=== PATIENT | male | born 1955 | race Caucasian/White ===

== ENCOUNTER 2020-02-28 09:03 | Outpatient (REF) | payer OTHER, SELFPAY ==
[2020-02-28 11:29] LABS: Hematocrit 47.5 % (42-52); Hemoglobin 15.8 g/dl (14.0-18.0); Mean Corpuscular HGB Conc 33.3 g/dl (31.0-36.0); Mean Corpuscular Hemoglobin 28.8 pg (27.0-33.0); Mean Corpuscular Volume 86.7 fL (80-98); Mean Platelet Volume 10.6 fL (9.4-12.4); Platelet Count 234 X10*3/uL (160-400); Red Blood Count 5.48 X10*6/uL (4.60-5.80); Red Cell Distribution Width 12.9 % (11.0-16.0); White Blood Count 5.2 X10*3/uL (4.8-10.8)
[2020-02-28 11:55] LABS: Alanine Aminotransferase 20 U/L (0-40); Albumin Level 4.5 g/dL (3.5-5.0); Alkaline Phosphatase 64 U/L (39-117); Anion Gap 14 (12-20); Aspartate Amino Transferase 20 U/L (5-37); Bilirubin Total 0.8 mg/dL (0.0-1.0); Blood Urea Nitrogen 22 mg/dL (9-16); Carbon Dioxide 26 mmol/L (22-29); Chloride 104 mmol/L (96-108); Cholesterol 215 mg/dL; Estimated Glomerular Filt Rate > 60; Glucose Fasting 87 mg/dL (60-99); HDL Cholesterol 52 mg/dL; LDL Cholesterol Calculated 141 mg/dl; Potassium 4.5 mmol/l (3.3-5.1); Sodium 139 mmol/L (135-145); Total Protein 7.1 g/dL (6.5-8.0); Triglycerides 114 mg/dL
[2020-02-28 12:17] LABS: Prostate Specific Antigen Scr 0.23 ng/mL (<0.05-4.0)
[2020-02-28 12:54] LABS: Glucose Urine UA NEG (NEG); Leukocyte Esterase Urine NEG (NEG); Nitrite Urine NEG (NEG); Specific Gravity - Urine 1.025 (1.005-1.025); Urine Blood 1+ (NEG); Urine Ketones NEG (NEG); Urine Protein NEG (NEG-TRACE)
[2020-02-28 12:56] LABS: Appearance Urine CLEAR; Color Urine YELLOW
[2020-02-28 13:44] LABS: RBC Urine 0-2 /HPF (0); WBC Urine 0 /HPF (0-4)
== END 2020-02-28 09:04 | disposition home or self-care (01) ==
LOC: HO.HMGCLDS 09:03
PROVIDERS: PCP Internal Medicine; Visit Provider Internal Medicine
DX: E78.2 Mixed hyperlipidemia (principal); K21.9 Gastro-esophageal reflux disease without esophagitis
CPT/HCPCS: 36415; 80053; 80061; 81001; 81003; 84153; 85027

== ENCOUNTER 2020-05-15 17:03 | Outpatient (REF) | payer OTHER, SELFPAY | END 2020-05-15 17:04 | disposition home or self-care (01) | LOC: HO.LAB 17:03 | PROVIDERS: Visit Provider Nurse Practitioner Family | DX: Z20.822 Contact with and (suspected) exposure to COVID-19 (principal) | CPT/HCPCS: 36415; U0003 ==

== ENCOUNTER 2020-09-02 09:56 | Outpatient (REF) | payer OTHER, SELFPAY ==
[2020-09-02 11:53] LABS: Cholesterol 227 mg/dL; HDL Cholesterol 48 mg/dL; LDL Cholesterol Calculated 142 mg/dl; Triglycerides 187 mg/dL
== END 2020-09-02 09:57 | disposition home or self-care (01) ==
LOC: HO.HMGCLDS 09:56
PROVIDERS: PCP Internal Medicine; Visit Provider Internal Medicine
DX: E78.5 Hyperlipidemia, unspecified (principal)
CPT/HCPCS: 36415; 80061

== ENCOUNTER 2020-12-16 06:38 | Day surgery (SDC) | payer OTHER, SELFPAY ==
[2020-09-30 12:45] VITALS: BMI 32.3
--- NOTE | 2020-10-02 12:06 | P.CONAN_ITS ---
HPI - Anesthesia Eval Consult details Narrative: 64yo M for Upper Endoscopy and Colonoscopy [facility] Active Problems Active Problems: All Active Problems (Updated 09/30/20 @ 12:44 by Priya Hill) Encounter for laboratory testing for COVID-19 virus (Acute) Sorethroat (Acute) GERD (gastroesophageal reflux disease) (Acute) Tendinitis of elbow (Acute) Hyperlipidemia (Acute) Past Medical History Medical History (Updated 09/30/20 @ 12:44 by Priya Hill) Benign paroxysmal positional vertigo COVID-19 vaccine series completed GERD (gastroesophageal reflux disease) Hyperlipidemia Microscopic hematuria Spondylosis of lumbosacral region Tendinitis of elbow Family History Family History (System 05/20/20 @ 13:15 by Keisha Harding) Father Healthy male adult Mother HTN (hypertension) Breast cancer Skin cancer Thyroid disorder Daughter Allergies Son No problems noted. Son No problems noted. Sister No problems noted. Sister No problems noted. Brother No problems noted. Brother No problems noted. Surgical History Surgical History H/O colonoscopy H/O left knee surgery History of bilateral knee replacement History of thumb surgery History of tonsillectomy Social History Social History (System 05/20/20 @ 13:15 by Keisha Harding) Are you a primary aged or disabled carer to a significant other at home: No Do you presently have visiting nurse or other home services: No Alcohol intake: never Meds Allergies Allergy/AdvReac Type Severity Reaction Status Date / Time amoxicillin Allergy Unknown Nausea and Verified 09/30/20 12:43 Vomiting oxycodone [Percocet] Allergy Unknown nausea and Verified 09/30/20 12:43 vomiting Home Medications Medication Instructions Recorded Confirmed Last Taken Type omega-3 fatty acids 1,000 mg 1,000 mg PO DAILY 03/05/20 09/30/20 Unknown History capsule Exam Exam Date and Time: October 02, 2020 1206 Height,Weight and Vital Signs: Height 5 ft 5 in Weight 87.997 kg Assessment and Plan Assessment Anesthesia Assessment: Chart Reviewed
--- NOTE | 2020-12-15 08:13 | HO.ANESPROP2 ---
HPI - Anesthesia Eval Consult details Narrative: 65yo M for Upper Endoscopy and Colonoscopy [facility] Active Problems Active Problems: All Active Problems (Updated 09/30/20 @ 12:44 by Priya Hill) Encounter for laboratory testing for COVID-19 virus (Acute) Sorethroat (Acute) GERD (gastroesophageal reflux disease) (Acute) Tendinitis of elbow (Acute) Hyperlipidemia (Acute) Past Medical History Medical History (Updated 09/30/20 @ 12:44 by Priya Hill) Benign paroxysmal positional vertigo COVID-19 vaccine series completed GERD (gastroesophageal reflux disease) Hyperlipidemia Microscopic hematuria Spondylosis of lumbosacral region Tendinitis of elbow Family History Family History (System 05/20/20 @ 13:15 by Keisha Harding) Father Healthy male adult Mother HTN (hypertension) Breast cancer Skin cancer Thyroid disorder Daughter Allergies Son No problems noted. Son No problems noted. Sister No problems noted. Sister No problems noted. Brother No problems noted. Brother No problems noted. Surgical History Surgical History H/O colonoscopy H/O left knee surgery History of bilateral knee replacement History of thumb surgery History of tonsillectomy Social History Social History (System 05/20/20 @ 13:15 by Keisha Harding) Are you a primary career coach to a significant other at home: No Do you presently have visiting nurse or other home services: No Alcohol intake: never Patient Tobacco Use Status: Former Tobacco user Quit Date: 1989 Tobacco use type: Cigarette Years Smoked: 10 Smoked in Last 30 Days: No Use of substances other than those prescribed or required for medical reasons: No Have you been hit, kicked, punched, or otherwise hurt by someone within the past year? If so, by whom?: No Are you DNR?: No Advance Directives: No Advance Directives Information Provided: No Advance Directives on File: No Recently lost weight without trying: No Eating poorly because of decreased appetite: No Nutrition Risks: No Nutritional Risk Poor oral hygiene: No Meds Allergies Allergy/AdvReac Type Severity Reaction Status Date / Time amoxicillin Allergy Unknown Nausea and Verified 12/16/20 07:01 Vomiting oxycodone [Percocet] Allergy Unknown nausea and Verified 12/16/20 07:01 vomiting Home Medications Medication Instructions Recorded Confirmed Last Taken Type omega-3 fatty acids 1,000 mg 1,000 mg PO DAILY 03/05/20 12/16/20 12/09/20 History capsule Exam Exam Date and Time: December 15, 2020 0813 Height,Weight and Vital Signs: Height 5 ft 5 in Weight 87.997 kg Assessment and Plan Assessment Anesthesia Assessment: Chart Reviewed
[2020-12-16 07:12] VITALS: BP 141/85; PULSE 77; RESP 16; TEMP 36.7; O2SAT 97
[2020-12-16 07:14] VITALS: BMI 33.3
--- NOTE | 2020-12-16 07:21 | P.CONAN_ITS ---
[facility] Active Problems Active Problems: All Active Problems (Updated 09/30/20 @ 12:44 by Priya arizmendi) Encounter for laboratory testing for COVID-19 virus (Acute) Sorethroat (Acute) GERD (gastroesophageal reflux disease) (Acute) Tendinitis of elbow (Acute) Hyperlipidemia (Acute) Past Medical History Medical History (Updated 09/30/20 @ 12:44 by Priya Hill) Benign paroxysmal positional vertigo COVID-19 vaccine series completed GERD (gastroesophageal reflux disease) Hyperlipidemia Microscopic hematuria Spondylosis of lumbosacral region Tendinitis of elbow Family History Family History (System 05/20/20 @ 13:15 by Keisha Harding) Father Healthy male adult Mother HTN (hypertension) Breast cancer Skin cancer Thyroid disorder Daughter Allergies Son No problems noted. Son No problems noted. Sister No problems noted. Sister No problems noted. Brother No problems noted. Brother No problems noted. Surgical History Surgical History H/O colonoscopy H/O left knee surgery History of bilateral knee replacement History of thumb surgery History of tonsillectomy Social History Social History (System 05/20/20 @ 13:15 by Keisha Harding) Are you a primary animal caretaker supervisor to a significant other at home: No Do you presently have visiting nurse or other home services: No Alcohol intake: never Patient Tobacco Use Status: Former Tobacco user Quit Date: 1989 Tobacco use type: Cigarette Years Smoked: 10 Smoked in Last 30 Days: No Use of substances other than those prescribed or required for medical reasons: No Have you been hit, kicked, punched, or otherwise hurt by someone within the past year? If so, by whom?: No Are you DNR?: No Advance Directives: No Advance Directives Information Provided: No Advance Directives on File: No Recently lost weight without trying: No Eating poorly because of decreased appetite: No Nutrition Risks: No Nutritional Risk Poor oral hygiene: No Meds Allergies Allergy/AdvReac Type Severity Reaction Status Date / Time amoxicillin Allergy Unknown Nausea and Verified 12/16/20 07:01 Vomiting oxycodone [Percocet] Allergy Unknown nausea and Verified 12/16/20 07:01 vomiting Active Medications: Current Medications Generic Name Dose Route Start Last Admin Trade Name Freq PRN Reason Stop Dose Admin Lactated Ringer's 1,000 mls @ 100 mls/hr 12/16/20 07:00 Lr IVCONT .[facility] Home Medications Medication Instructions Recorded Confirmed Last Taken Type omega-3 fatty acids 1,000 mg 1,000 mg PO DAILY 03/05/20 12/16/20 12/09/20 History capsule Exam Exam Date and Time: December 16, 202021 Height,Weight and Vital Signs: Height 5 ft 5 in Weight 90.718 kg Last Vital Signs Temp 98.0 F 12/16/20 07:12 Pulse 77 12/16/20 07:12 Resp 16 12/16/20 07:12 BP 141/85 H 12/16/20 07:12 Pulse Ox 97 12/16/20 07:12 Airway Mallampati Class: I TM Dist: >3cm Neck ROM: Full
[2020-12-16] MEDS: Lactated Ringers 1,000 ML 100 ML IVCONT (07:30)
--- NOTE | 2020-12-16 07:46 | MHC.SHP ---
Pre-Procedural Eval Section A Date of Service: 12/16/20 Section B Chief Complaint: screening,preprocedural,reflux disease Details of Present Illness: gerd, screening Relevant Family History (Specify if Yes): No Relevant Social History: None Present Medications: see Short Stay Collaborative assessment Medical History: No relevant PMH Allergies: Allergies Allergy/AdvReac Type Severity Reaction Status Date / Time amoxicillin Allergy Unknown Nausea and Verified 12/16/20 07:01 Vomiting oxycodone [Percocet] Allergy Unknown nausea and Verified 12/16/20 07:01 vomiting Review of Systems Sugical H&P ROS: Negative: Constitution, Cardiovascular, Respiratory, Neurological, Psychiatric, Hem-Onc, Allergic/Immunologic, Gastrointestinal, Genitourinary, Musculoskeletal, Integumentary, Endocrine and Eyes/Ears/Nose/Throat Exam Surgical H&P Exam: Normal: HEENT, Normal: Heart, Normal: Lungs, Normal: Extremities, Normal: Abdomen, Normal: Skin and Normal: Neurological Plan I have reviewed the history and physical and performed a pertinent physical examination on my patient. No changes have occurred unless specified.
[2020-12-16 08:20] VITALS: BP 105/67; PULSE 68; RESP 17; TEMP 36.6; O2SAT 96
--- NOTE | 2020-12-16 08:25 | P.BOP_ITS ---
Brief Operative Note Date of Service: 12/16/20 Pre-op diagnosis: gerd, screening Post-op diagnosis: same Procedure: egd,colon Surgeon: Curt Fitch Anesthesia: MAC Was an Residential Door Installer used for this Procedure?: No Estimated blood loss (mL): 2 Pathology: other (bxs antrum, egj) Condition: stable Disposition: PACU
[2020-12-16 08:35] VITALS: BP 110/75; PULSE 68; RESP 16; TEMP 36.6; O2SAT 98
--- NOTE | 2020-12-16 10:09 | OP_ITS ---
SURGEON: Curt Fitch MD INDICATIONS: 1. Gastroesophageal reflux disease. 2. Personal history of colon polyps. PREOPERATIVE DIAGNOSIS: POSTOPERATIVE DIAGNOSIS: PROCEDURE PERFORMED: 1. Upper endoscopy with biopsy. 2. Colonoscopy to the terminal ileum. ESTIMATED BLOOD LOSS: COMPLICATIONS: ANESTHESIA: ASSISTANTS: SPECIMENS: MEDICATIONS: Monitored anesthesia care. DESCRIPTION OF PROCEDURE: History and physical performed. The risks and benefits of the procedure were explained to the patient. Informed consent was obtained. The patient was placed in the left lateral decubitus position. The Olympus video gastroscope was introduced into the esophagus, stomach, and duodenum. Examination was performed. The scope was removed. He was repositioned for colonoscopy. A digital rectal exam was performed and was found to be normal. The Olympus pediatric video colonoscope was introduced into the rectum and advanced to the cecum without difficulty. The cecum was identified by transillumination, palpation, identification of the ileocecal valve. Examination was performed. The scope was removed. He tolerated both procedures well and was taken to recovery area in stable condition. FINDINGS: UPPER ENDOSCOPY: Esophagus: The esophagus did show distal esophagitis with a few small erosions involving the last 3 to 4 cm of the esophagus. Stomach: The stomach showed no evidence of masses, ulcers, or polyps. Duodenum: The bulb and second portion were normal. Biopsies were obtained from the EG junction and from the antrum. COLONOSCOPY: The terminal ileum was normal. Visualized colonic mucosa was normal. The quality of the prep was good. There were few diverticula seen in the sigmoid. No polyps were identified. Retroflexed examination showed small internal hemorrhoids. IMPRESSION: 1. Esophagitis. 2. Normal colonoscopy. RECOMMENDATIONS: 1. Begin omeprazole 20 mg daily. 2. Follow up the biopsy results. 3. Repeat colonoscopy is recommended for 7 to 10 years based on today's findings. MD LILIANE Gonzalez/KERI / [id number]
== END 2020-12-16 08:57 | disposition home or self-care (01) ==
PROVIDERS: PCP Internal Medicine; Visit Provider Internal Medicine Gastroenterology
PROC: (CPT 45378; principal; 2020-12-16 08:00)
DX: Z12.11 Encounter for screening for malignant neoplasm of colon (principal); Z86.010 Personal history of colon polyps; K57.30 Diverticulosis of large intestine without perforation or abscess without bleeding; K64.8 Other hemorrhoids; K21.9 Gastro-esophageal reflux disease without esophagitis; K20.90 Esophagitis, unspecified without bleeding; Z79.899 Other long term (current) drug therapy; Z87.891 Personal history of nicotine dependence
CPT/HCPCS: 45378; 43239; 88305; 88342

== ENCOUNTER 2022-02-01 10:30 | Outpatient (REF) | payer MEDICARE, OTHER, SELFPAY ==
[2022-02-01 14:00] LABS: Appearance Urine Clear; Color Urine Yellow; Glucose Urine UA Negative (Negative); Leukocyte Esterase Urine Negative (Negative); Nitrite Urine Negative (Negative); Urine Blood Negative (Negative); Urine Ketones Negative (Negative); Urine Protein Negative (Neg-Trace)
[2022-02-01 14:06] LABS: Bacteria Urine None Seen (None Seen); Hyaline Casts Urine 0-2 /LPF (0-2); RBC Urine 0-2 /HPF (0-2); Squamous Epithelial Cell Urine 0-2 /HPF (0-2); WBC Urine 0-5 /HPF (0-5)
[2022-02-01 14:07] LABS: Hematocrit 45.3 % (42.0-52.0); Hemoglobin 15.2 g/dl (14.0-18.0); Mean Corpuscular HGB Conc 33.6 g/dl (31.0-36.0); Mean Corpuscular Hemoglobin 28.9 pg (27.0-33.0); Mean Corpuscular Volume 86.1 fL (80.0-98.0); Mean Platelet Volume 10.6 fL (9.4-12.4); Platelet Count 276 X10*3/uL (160-400); Red Blood Count 5.26 X10*6/uL (4.60-5.80)
[2022-02-01 14:25] LABS: Alanine Aminotransferase 24 U/L (0-40); Albumin Level 4.4 g/dL (3.5-5.0); Alkaline Phosphatase 62 U/L (39-117); Anion Gap 15 (12-20); Aspartate Amino Transferase 21 U/L (5-37); Bilirubin Total 0.7 mg/dL (0.0-1.0); Blood Urea Nitrogen 18 mg/dL (9-16); Calcium 9.2 mg/dL (8.4-10.2); Carbon Dioxide 24 mmol/L (22-29); Chloride 105 mmol/L (96-108); Cholesterol 183 mg/dL; Estimated Glomerular Filt Rate > 60; Glucose Fasting 90 mg/dL (60-99); HDL Cholesterol 50 mg/dL; LDL Cholesterol Calculated 107 mg/dl; Potassium 4.5 mmol/L (3.3-5.1); Sodium 139 mmol/L (135-145); Total Protein 6.8 g/dL (6.5-8.0); Triglycerides 133 mg/dL
== END 2022-02-01 10:31 | disposition home or self-care (01) ==
LOC: HO.HMGCLDS 10:30
PROVIDERS: PCP Internal Medicine; Visit Provider Internal Medicine
DX: K21.9 Gastro-esophageal reflux disease without esophagitis (principal); E78.5 Hyperlipidemia, unspecified; Z12.5 Encounter for screening for malignant neoplasm of prostate
CPT/HCPCS: 36415; 80053; 80061; 81001; 84153; 85027

== ENCOUNTER 2023-01-21 08:24 | Outpatient (AMB) | payer MEDICARE, OTHER, SELFPAY ==
--- NOTE | 2023-01-21 08:28 | A.OFFPC_ITS ---
Vital Signs 01/21/23 08:29 Height 5 ft 5 in Weight 193 lb BMI 32.1 BP 122/80 Blood Pressure Location Lt brachial Position Sitting Pulse 65 Pulse Source Pulse Oximeter Pulse Oximetry (%) 99 Oxygen Delivery Method Room Air Intake Visit Reasons: Followup blurred vision/headache Intake Note: Pt is here today for a follow up visit. Pt states that he had accident 15 years ago playing soccer he got hit in a head. Pt states that his Rside of his head was numb and now his R eye gets blurry and get headache. Pt states that he gets those episodes more often now. Allergies amoxicillin Allergy (Unknown, Verified 01/21/23 08:45) Nausea and Vomiting oxycodone [Percocet] Allergy (Unknown, Verified 01/21/23 08:45) nausea and vomiting Medication List - Last Reconciled 01/21/23 by Ching Perez MD cholecalciferol (vitamin D3) 50 mcg PO BEDTIME magnesium citrate 100 mg PO DAILY omega-3 fatty acids 1,000 mg PO DAILY Tobacco use date assessed: 01/21/23 Dental Screening Dental Screen Date: 01/21/23 Did you have a dental visit in the last 12 months?: Yes Did you have a dental problem in the last 6 months where you did not have access to dental care?: No Was dental information given to patient?: Patient has dentist HPI Followup blurred vision/headache HPI Details Pt presents reporting chronic, since his head injury at age of 16 with loss of consciousness, episodes of blurred vision and headaches lasting up to 1 day usually resolving with a glass of lemon juice. patient was hospitalized in the past about 4 years ago and underwent extensive neurological workup which was negative. Patient denies any change in the frequency or characteristics of his episodes. He was reading about a neurologist at [facility] who sp ecializes in traumatic brain injury and is thinking about referral. [facility] Medical History (Updated 01/21/23 @ 09:02 by Ching Perez MD) COVID-19 vaccine series completed Tendinitis of elbow Hyperlipidemia Spondylosis of lumbosacral region Benign paroxysmal positional vertigo Microscopic hematuria GERD (gastroesophageal reflux disease) Surgical History H/O colonoscopy History of bilateral knee replacement History of tonsillectomy History of thumb surgery H/O left knee surgery Family History Father Healthy male adult Mother HTN (hypertension) Breast cancer Skin cancer Thyroid disorder Daughter Allergies Son No problems noted. Son No problems noted. Sister No problems noted. Sister No problems noted. Brother No problems noted. Brother No problems noted. 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 1. Little interest or pleasure in doing things: not at all 2. Feeling down, depressed, or hopeless: not at all 3. Trouble falling or staying asleep, or sleeping too much: not at all 4. Feeling tired or having little energy: not at all 5. Poor appetite or overeating: not at all 6. Feeling bad about yourself - or that you are a failure or have let yourself or your family down: not at all 7. Trouble concentrating on things, such as reading the newspaper or watching television: not at all 8. Moving or speaking so slowly that other people could have noticed. Or the opposite - being so fidgety or restless that you have been moving around a lot more than usual: not at all 9. Thoughts that you would be better off or of hurting yourself in some way: not at all Total score: 0 Depression Screening Interpretation: Negative Source: Developed by Drs. Hong Weiss, Marianne Herrera, Surinder Trujillo and colleagues, with an educational leslie from [employer]. Thrive Questionnaire Date Thrive assessed: 01/21/23 I am a: Patient What is your living situation today?: I have a steady place to live Within the past 12 months, did the food you bought not last and you didn't have the money to get more?: Never true Within the past 12 months, did you worry whether your food would run out before you got money to buy more?: Never true Do you have trouble paying for medicines?: No Do you have trouble getting transportation to medical appointments?: No Do you have trouble paying your heating and electricity bill?: No Do you have trouble taking care of your child, family member or friend?: No Do you have trouble with day-to-day activities such as bathing, preparing meals, shopping, managing finances, etc.?: No Are you currently unemployed and looking for a job?: No Are you interested in more education?: No Please select the resources that you would like help with: None Currently or been in a relationship where the following occur: no concerns reported AUDIT C Alcohol Use Questionnaire (AUDIT-C) 1. How often do you have a drink containing alcohol?: Never 3. How often do you have six or more drinks on one occasion?: Never Total Score: 0 ZINA-7 AMB Questionnaire ZINA-7 Date ZINA - 7 assessed: 01/21/23 Feeling nervous, anxious, or on edge: 0 = Not at all Not being able to stop or control worryin = Not at all Worrying too much about different things: 0 = Not at all Trouble relaxin = Not at all Being so restless that it is hard to sit still: 0 = Not at all Becoming easily annoyed or irritable: 0 = Not at all Feeling afraid as if something awful might happen: 0 = Not at all Total ZINA-7 score (0-4 normal; 5-9 mild; 10-14 moderate; 15-21 severe): 0 Source: Developed by Drs. Hong Weiss, Marianne Herrera, Surinder Trujillo and colleagues, with an educational leslie from [employer]. Review of Systems Const All systems reviewed & are unremarkable except as noted in HPI and below Reports no additional complaints Eyes Reports no additional complaints ENT Reports no additional complaints Card Reports no additional complaints Resp Reports no additional complaints GI Reports no additional complaints Reports no additional complaints Physical exam (Primary Care) Vital Signs: Last Vital Signs Pulse 65 01/21/23 08:29 BP 122/80 01/21/23 08:29 Pulse Ox 99 01/21/23 08:29 Oxygen Delivery Method Room Air 01/21/23 08:29 BMI result Body Mass Index 32.1 Tobacco/Smoking Status: Tobacco use Status Tobacco use date assessed 01/21/23 01/21/23 08:46 Patient Tobacco Use Status Former Tobacco user 01/21/23 08:29 Tobacco use type Cigarette 01/21/23 08:29 e-Cigarette/Vaping Use Never Used 01/21/23 08:29 PHQ-9: PHQ-9 Score PHQ-9: Total score 0 01/21/23 08:51 Depression Screening Interpretation: Negative Thrive Assessment: Date of Thrive Assessment Date Thrive assessed 01/21/23 01/21/23 08:51 Currently or been in a relationship where the following occur: no concerns reported Const General: no acute distress Orientation/consciousness: patient oriented x3 HENMT Head: Yes normal to inspection Ears: hearing grossly normal bilaterally General nose exam: Normal external nose present Eyes General: appearance normal, both eyes and all related structures Pupils: Equal, round and reactive pupils present Neck Neck: Yes no lymphadenopathy and Yes supple Resp Effort & Inspection: normal respiratory effort Auscultation: clear to auscultation bilaterally Cardio Rhythm: regular rhythm Heart sounds: S1 normal heart sound present and S2 normal heart sound present Neuro General: patient oriented x3, gait normal and no focal motor deficits Cranial nerves: Yes CN's II-XII intact bilaterally and Yes Equal, round and reactive pupils present Cognition (Neuro): normal cognition Motor exam (neuro): 5/5 motor strength present throughout Coordination: [id number] test normal Romberg Test: Negative Assessment and Plan Assessment & Plan (1) 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
[2023-01-21 08:29] VITALS: BP 122/80; PULSE 65; O2SAT 99; BMI 32.1
== END 2023-01-21 09:18 | disposition home or self-care (01) ==
PROVIDERS: PCP Internal Medicine; Visit Provider Internal Medicine
DX: S09.90XA Unspecified injury of head, initial encounter (principal)
CPT/HCPCS: 99213

== ENCOUNTER 2023-02-12 09:27 | Outpatient (REF) | payer MEDICARE, OTHER, SELFPAY | END 2023-02-12 09:28 | disposition home or self-care (01) | LOC: HO.HMGCLDS 09:27 | PROVIDERS: PCP Internal Medicine; Visit Provider Internal Medicine | DX: Z00.00 Encounter for general adult medical examination without abnormal findings (principal); E78.5 Hyperlipidemia, unspecified; Z12.5 Encounter for screening for malignant neoplasm of prostate | CPT/HCPCS: 36415; 80053; 80061; 83735; 84153; 85025 ==

== ENCOUNTER 2023-02-21 10:47 | Outpatient (AMB) | payer MEDICARE, OTHER, SELFPAY ==
[2023-02-21 11:12] VITALS: BP 122/84; PULSE 65; O2SAT 97; BMI 31.6
--- NOTE | 2023-02-21 11:12 | MHC.PC.OV ---
Vital Signs 02/21/23 11:12 Height 5 ft 5 in Weight 190 lb BMI 31.6 BP 122/84 Blood Pressure Location Rt brachial Position Sitting Pulse 65 Pulse Source Pulse Oximeter Pulse Oximetry (%) 97 Oxygen Delivery Method Room Air Intake Visit Reasons: PE Intake Note: Pt is here today for PE. Allergies amoxicillin Allergy (Unknown, Verified 02/21/23 11:18) Nausea and Vomiting oxycodone [Percocet] Allergy (Unknown, Verified 02/21/23 11:18) nausea and vomiting Medication List - Last Reconciled 02/21/23 by Ching Perez MD cholecalciferol (vitamin D3) 50 mcg PO BEDTIME magnesium citrate 100 mg PO DAILY omega-3 fatty acids 1,000 mg PO DAILY Tobacco use date assessed: 02/21/23 Fall risk assessment: No Falls in past year Last assessed Fall Risk: 02/21/23 Dental Screening Dental Screen Date: 02/21/23 Did you have a dental visit in the last 12 months?: Yes Did you have a dental problem in the last 6 months where you did not have access to dental care?: No Was dental information given to patient?: Patient has dentist HPI PE HPI Details PATIENT PRESENTS FOR PHYSICAL. Patient was seen in the ER last month with complaint of left flank pain and nausea. He was found to have microscopic hematuria was evaluated by [facility] and the abdominal CT scan showed left mild hydronephrosis and a cystic structure with a mass effect on the left renal pelvis 2.6 x 3.7 x 2.3 cm. Patient has an appointment for the MRI to evaluate for left renal mass net week. Patient denies flank pain fever chills nausea vomiting [facility] Medical History (Updated 02/21/23 @ 12:14 by Ching Perez MD) COVID-19 vaccine series completed Tendinitis of elbow Hyperlipidemia Spondylosis of lumbosacral region Benign paroxysmal positional vertigo GERD (gastroesophageal reflux disease) Surgical History H/O colonoscopy History of bilateral knee replacement History of tonsillectomy History of thumb surgery H/O left knee surgery Family History Father Healthy male adult Mother HTN (hypertension) Breast cancer Skin cancer Thyroid disorder Daughter Allergies Son No problems noted. Son No problems noted. Sister No problems noted. Sister No problems noted. Brother No problems noted. Brother No problems noted. 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 Hong Weiss, Marianne Herrera, Surinder Trujillo and colleagues, with an educational leslie from [employer]. Review of Systems Const All systems reviewed & are unremarkable except as noted in HPI and below Reports no additional complaints Eyes Reports no additional complaints ENT Reports no additional complaints Card Reports no additional complaints Resp Reports no additional complaints GI Reports no additional complaints Reports no additional complaints Physical exam (Primary Care) Vital Signs: Last Vital Signs Pulse 65 02/21/23 11:12 BP 122/84 02/21/23 11:12 Pulse Ox 97 02/21/23 11:12 Oxygen Delivery Method Room Air 02/21/23 11:12 BMI result Body Mass Index 31.6 Tobacco/Smoking Status: Tobacco use Status Tobacco use date assessed 02/21/23 02/21/23 11:19 Patient Tobacco Use Status Former Tobacco user 02/21/23 11:13 Tobacco use type Cigarette 02/21/23 11:13 e-Cigarette/Vaping Use Never Used 02/21/23 11:13 Thrive Assessment: Date of Thrive Assessment Date Thrive assessed 01/21/23 02/21/23 11:13 Const General: no acute distress HENMT Head: Yes normal to inspection Ears: hearing grossly normal bilaterally Face and sinus: Yes normal facial exam Throat: Yes posterior oropharynx normal Eyes General: appearance normal, both eyes and all related structures Neck Neck: Yes no lymphadenopathy and Yes supple Resp Effort & Inspection: normal respiratory effort Auscultation: clear to auscultation bilaterally Cardio Rhythm: regular rhythm Heart sounds: S1 normal heart sound present and S2 normal heart sound present GI Inspection: Yes normal to inspection Palpation (GI): Soft to palpation Percussion: Yes normal to percussion Auscultation: normal bowel sounds Assessment and Plan Assessment & Plan (1) Left renal mass: Comment: CT PVU, left cystic structure 2.6x3.7x2.3 cm with a mass effect on the left renal pelvis and mild hydronephrosis 02/03/23, will have MRI Code(s): N28.89 - Other specified disorders of kidney and ureter Plan: Follow-up with urology (2) Annual physical exam: Code(s): Z00.00 - Encounter for general adult medical examination without abnormal findings Plan: Well-balanced diet regular physical activity discussed with the patient. He is up-to-date with colonoscopy (3) Elevated serum creatinine: Code(s): R79.89 - Other specified abnormal findings of blood chemistry Plan: Increase fluid intake repeat basic metabolic panel in 1 month Orders: Orders UA w Microscopic Today N28.89 - Other specified disorders of kidney and ureter Urine Culture Today N28.89 - Other specified disorders of kidney and ureter Basic Metabolic Panel 1 Month N28.89 - Other specified disorders of kidney and ureter Coding Level of Care Code Est Pt Prev Care >65y(71060) Diagnoses Left renal mass N28.89 Annual physical exam Z00.00 Elevated serum creatinine R79.89
== END 2023-02-21 12:16 | disposition home or self-care (01) ==
PROVIDERS: Visit Provider Internal Medicine
DX: Z00.00 Encounter for general adult medical examination without abnormal findings (principal); N28.89 Other specified disorders of kidney and ureter; R79.89 Other specified abnormal findings of blood chemistry
CPT/HCPCS: 99397

== ENCOUNTER 2023-02-21 12:13 | Outpatient (REF) | payer MEDICARE, OTHER, SELFPAY ==
[2023-02-21 13:17] LABS: Appearance Urine Clear; Color Urine Yellow; Glucose Urine UA Negative (Negative); Leukocyte Esterase Urine Negative (Negative); Nitrite Urine Negative (Negative); PH 5.5 (5.0-9.0); UMIC TRIGGER UA YES; Urine Blood Small (1+) (Negative); Urine Ketones Negative (Negative); Urine Protein Negative (Neg-Trace)
[2023-02-21 13:33] LABS: Bacteria Urine None Seen (None Seen); Hyaline Casts Urine 0-2 /LPF (0-2); RBC Urine 0-2 /HPF (0-2); Squamous Epithelial Cell Urine 0-2 /HPF (0-2); WBC Urine 0-5 /HPF (0-5)
== END 2023-02-21 12:14 | disposition home or self-care (01) ==
LOC: HO.HMGCLDS 12:13
PROVIDERS: PCP Internal Medicine; Visit Provider Internal Medicine
DX: N28.89 Other specified disorders of kidney and ureter (principal)
CPT/HCPCS: 81001; 87086

== ENCOUNTER 2023-03-18 08:01 | Outpatient (REF) | payer MEDICARE, OTHER, SELFPAY ==
[2023-03-18 11:48] LABS: Anion Gap 9 (12-20); Blood Urea Nitrogen 26 mg/dL (9-16); Calcium 9.4 mg/dL (8.4-10.2); Carbon Dioxide 30 mmol/L (22-29); Chloride 105 mmol/L (96-108); Estimated Glomerular Filt Rate 41; Glucose Random 89 mg/dL (60-115); Sodium 140 mmol/L (135-145)
== END 2023-03-18 08:02 | disposition home or self-care (01) ==
LOC: HO.HMGCLDS 08:01
PROVIDERS: PCP Internal Medicine; Visit Provider Internal Medicine
DX: N28.89 Other specified disorders of kidney and ureter (principal)
CPT/HCPCS: 36415; 80048

== ENCOUNTER 2023-03-22 11:05 | Outpatient (AMB) | payer MEDICARE, OTHER, SELFPAY ==
--- NOTE | 2023-03-22 11:27 | MHC.PC.OV ---
Vital Signs 03/22/23 11:28 Height 5 ft 5 in Weight 192 lb BMI 31.9 BP 130/82 Blood Pressure Location Lt brachial Position Sitting Pulse 78 Pulse Source Pulse Oximeter Pulse Oximetry (%) 98 Oxygen Delivery Method Room Air Intake Visit Reasons: one month fu Allergies amoxicillin Allergy (Unknown, Verified 03/22/23 11:29) Nausea and Vomiting oxycodone [Percocet] Allergy (Unknown, Verified 03/22/23 11:29) nausea and vomiting Tobacco use date assessed: 02/21/23 HPI one month fu HPI Details Pt presents for f/u of CKD 3. Patient follows up with urologist next week, had renal MR but results are not available. Patient is going to [place] for 4 months in 2 weeks. [facility] Medical History (Updated 03/22/23 @ 11:53 by Ching Perez MD) COVID-19 vaccine series completed Tendinitis of elbow Hyperlipidemia Spondylosis of lumbosacral region Benign paroxysmal positional vertigo GERD (gastroesophageal reflux disease) Surgical History H/O colonoscopy History of bilateral knee replacement History of tonsillectomy History of thumb surgery H/O left knee surgery Family History Father Healthy male adult Mother HTN (hypertension) Breast cancer Skin cancer Thyroid disorder Daughter Allergies Son No problems noted. Son No problems noted. Sister No problems noted. Sister No problems noted. Brother No problems noted. Brother No problems noted. 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 Hong Weiss, MarianneSurinder Vaz and colleagues, with an educational leslie from [employer]. Review of Systems Const All systems reviewed & are unremarkable except as noted in HPI and below Reports no additional complaints Eyes Reports no additional complaints ENT Reports no additional complaints Card Reports no additional complaints Resp Reports no additional complaints GI Reports no additional complaints Physical exam (Primary Care) Vital Signs: Last Vital Signs Pulse 78 03/22/23 11:28 BP 130/98 H 03/22/23 11:28 Pulse Ox 98 03/22/23 11:28 Oxygen Delivery Method Room Air 03/22/23 11:28 BMI result Body Mass Index 31.9 Tobacco/Smoking Status: Tobacco use Status Tobacco use date assessed 02/21/23 03/22/23 11:30 Patient Tobacco Use Status Former Tobacco user 03/22/23 11:30 Tobacco use type Cigarette 03/22/23 11:30 e-Cigarette/Vaping Use Never Used 03/22/23 11:30 Thrive Assessment: Date of Thrive Assessment Date Thrive assessed 01/21/23 03/22/23 11:30 Const General: no acute distress HENMT Head: Yes normal to inspection Eyes General: appearance normal, both eyes and all related structures Neck Neck: Yes no lymphadenopathy and Yes supple Resp Effort & Inspection: normal respiratory effort Auscultation: clear to auscultation bilaterally Cardio Rhythm: regular rhythm Heart sounds: S1 normal heart sound present and S2 normal heart sound present GI Percussion: Yes normal to percussion Auscultation: normal bowel sounds Assessment and Plan Assessment & Plan (1) Left renal mass: Comment: CT PVU, left cystic structure 2.6x3.7x2.3 cm with a mass effect on the left renal pelvis and mild hydronephrosis 02/03/23, will have MRI Code(s): N28.89 - Other specified disorders of kidney and ureter Plan: F/U WITH UROLOGY at [facility] (2) Elevated BP without diagnosis of hypertension: Code(s): R03.0 - Elevated blood-pressure reading, without diagnosis of hypertension Plan: low Na diet, regular exercise , pt will have BP checked in Fl Coding Level of Care Code Est Pt Level 4 (68986) Diagnoses Left renal mass N28.89 Elevated BP without diagnosis of hypertension R03.0
[2023-03-22 11:28] VITALS: BP 130/82; PULSE 78; O2SAT 98; BMI 31.9
== END 2023-03-22 11:54 | disposition home or self-care (01) ==
PROVIDERS: PCP Internal Medicine; Visit Provider Internal Medicine
DX: N28.89 Other specified disorders of kidney and ureter (principal); R03.0 Elevated blood-pressure reading, without diagnosis of hypertension
CPT/HCPCS: 99214

== ENCOUNTER 2024-01-04 15:39 | Outpatient (AMB) | payer MEDICARE, OTHER, SELFPAY ==
--- NOTE | 2024-01-04 15:55 | MHC.OFFWIV ---
Intake Vital Signs 01/04/24 16:00 Height 5 ft 5 in Weight 194 lb BMI 32.3 BP 160/100 H Blood Pressure Location Rt brachial Position Sitting Pulse 62 Pulse Source Pulse Oximeter Pulse Oximetry (%) 98 Oxygen Delivery Method Room Air Intake Visit Reasons: EP BP high 185/110 this morning/no other symp Patient Tobacco Use Status: Former Tobacco user Allergies amoxicillin Allergy (Unknown, Verified 03/22/23 11:29) Nausea and Vomiting oxycodone [Percocet] Allergy (Unknown, Verified 03/22/23 11:29) nausea and vomiting Medication List - Last Reconciled 01/04/24 by Samantha Feliciano MD cholecalciferol (vitamin D3) 50 mcg PO BEDTIME magnesium citrate 100 mg PO DAILY omega-3 fatty acids 1,000 mg PO DAILY HPI EP BP high 185/110 this morning/no other symp HPI Details Patient is 68-year-old gentleman who has compromised kidney function due to cyst left side Came in today to talk about blood pressure which was elevated this morning His blood pressure is elevated at this time as well at 160/100 He is taking no medication for high blood pressure He does have a urologist at [facility], Dr. 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 Imaging did not show any stone or malignancy. Cytology from cyst aspiration also was negative for malignancy. I am ordering a new set of labs for the patient He was instructed to call Dr. Sher office and book appointment earlier than February Patient is to come on Tuesday to get up print out of his lab report Meanwhile I am starting him on atenolol 25 mg patient will continue monitoring his blood pressure at home If it is still above 140 systolic he may double the dose. He has no headache no dizziness no nausea no vomiting there is no chest pain no shortness a breath, there is no abdominal pain There is no flank pain there is no urinary complaints PFSH Medical History COVID-19 vaccine series completed Tendinitis of elbow Hyperlipidemia Spondylosis of lumbosacral region Benign paroxysmal positional vertigo GERD (gastroesophageal reflux disease) Surgical History H/O colonoscopy History of bilateral knee replacement History of tonsillectomy History of thumb surgery H/O left knee surgery Family History Father Healthy male adult Mother HTN (hypertension) Breast cancer Skin cancer Thyroid disorder Daughter Allergies Son No problems noted. Son No problems noted. Sister No problems noted. Sister No problems noted. Brother No problems noted. Brother No problems noted. 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 [employer] Current occupational exposures/hazards: No Cognitive needs: No Hearing needs: No Vision needs: No Review of Systems Const All systems reviewed & are unremarkable except as noted in HPI and below Physical Exam Vital Signs: Last Vital Signs Pulse 62 01/04/24 16:00 BP 160/100 H 01/04/24 16:00 Pulse Ox 98 01/04/24 16:00 Oxygen Delivery Method Room Air 01/04/24 16:00 BMI result Body Mass Index 32.3 Const General: no acute distress Orientation/consciousness: patient oriented x3 Eyes General: appearance normal, both eyes and all related structures Resp Effort & Inspection: normal respiratory effort and able to speak in complete sentences Auscultation: clear to auscultation bilaterally Neuro General: patient oriented x3 Psych Mental Status: mental status grossly normal Assessment & Plan Assessment & Plan (1) Hypertension, essential: Code(s): I10 - Essential (primary) hypertension (2) Compromised kidney function: Code(s): N28.9 - Disorder of kidney and ureter, unspecified (3) Hydronephrosis of left kidney: Code(s): N13.30 - Unspecified hydronephrosis Plan Patient is 68-year-old gentleman who has compromised kidney function due to cyst left side Came in today to talk about blood pressure which was elevated this morning His blood pressure is elevated at this time as well at 160/100 He is taking no medication for high blood pressure 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 Imaging did not show any stone or malignancy. Cytology from cyst aspiration also was negative for malignancy. I am ordering a new set of labs for the patient He was instructed to call Dr. Sher office and book appointment earlier than February Patient is to come on Tuesday to get up print out of his lab report Meanwhile I am starting him on atenolol 25 mg patient will continue monitoring his blood pressure at home If it is still above 140 systolic he may double the dose. He has no headache no dizziness no nausea no vomiting there is no chest pain no shortness a breath, there is no abdominal pain There is no flank pain there is no urinary complaints Orders: Orders Comprehensive Met. Panel Today I10 - Essential (primary) hypertension, N28.1 - Cyst of kidney, acquired, N28.9 - Disorder of kidney and ureter, unspecified Medications: New atenolol 25 mg PO DAILY 30 tabs 0RF Coding Level of Care Code Est Pt Level 4 (99782) Diagnoses Hypertension, essential I10 Compromised kidney function N28.9 Hydronephrosis of left kidney N13.30
[2024-01-04 16:00] VITALS: BP 160/100; PULSE 62; O2SAT 98; BMI 32.3
== END 2024-01-04 16:27 | disposition home or self-care (01) ==
PROVIDERS: PCP Internal Medicine; Visit Provider Internal Medicine
DX: I10 Essential (primary) hypertension (principal); N28.9 Disorder of kidney and ureter, unspecified; N13.30 Unspecified hydronephrosis
CPT/HCPCS: 99214

== ENCOUNTER 2024-01-05 06:48 | Outpatient (REF) | payer MEDICARE, OTHER, SELFPAY ==
[2024-01-05 10:24] LABS: Alanine Aminotransferase 26 U/L (0-40); Albumin Level 4.3 g/dL (3.5-5.0); Alkaline Phosphatase 63 U/L (39-117); Anion Gap 14 (12-20); Aspartate Amino Transferase 19 U/L (5-37); Bilirubin Total 0.5 mg/dL (0.0-1.0); Blood Urea Nitrogen 29 mg/dL (9-16); Calcium 9.8 mg/dL (8.4-10.2); Carbon Dioxide 25 mmol/L (22-29); Chloride 106 mmol/L (96-108); Estimated Glomerular Filt Rate 37; Glucose Random 98 mg/dL (60-115); Sodium 140 mmol/L (135-145)
== END 2024-01-05 06:49 | disposition home or self-care (01) ==
LOC: HO.HMGCLDS 06:48
PROVIDERS: PCP Internal Medicine; Visit Provider Internal Medicine
DX: I10 Essential (primary) hypertension (principal); N28.9 Disorder of kidney and ureter, unspecified; N28.1 Cyst of kidney, acquired
CPT/HCPCS: 36415; 80053

== ENCOUNTER 2024-01-20 10:12 | Outpatient (AMB) | payer MEDICARE, OTHER, SELFPAY ==
--- NOTE | 2024-01-20 10:14 | MHC.PC.OV ---
Vital Signs 01/20/24 10:16 Height 5 ft 5 in Weight 198 lb BMI 32.9 BP 160/100 H Blood Pressure Location Rt brachial Position Sitting Pulse 72 Pulse Source Pulse Oximeter Pulse Oximetry (%) 98 Intake Visit Reasons: BP nura after WI Allergies amoxicillin Allergy (Unknown, Verified 01/20/24 10:18) Nausea and Vomiting oxycodone [Percocet] Allergy (Unknown, Verified 01/20/24 10:18) nausea and vomiting Medication List - Last Reconciled 01/20/24 by Ching Perez MD atenolol 25 mg PO DAILY cholecalciferol (vitamin D3) 50 mcg PO BEDTIME magnesium citrate 100 mg PO DAILY omega-3 fatty acids 1,000 mg PO DAILY Tobacco use date assessed: 01/20/24 Fall risk assessment: No Falls in past year Last assessed Fall Risk: 01/20/24 Dental Screening Dental Screen Date: 01/20/24 Did you have a dental visit in the last 12 months?: Yes Did you have a dental problem in the last 6 months where you did not have access to dental care?: No Was dental information given to patient?: Patient has dentist HPI BP nura after [place] HPI Details Patient presents for the follow-up of walk in visit for hypertension. He has been monitoring his blood pressure for the last 6 months and noticed steady increase in readings at home. Patient denies chest pain shortness or breath palpitations. He started atenolol 2 weeks ago and denies any side effects. Patient follows up with urology for left hydronephrosis and declining left kidney function due to infected cyst. [facility], [facility] Medical History COVID-19 vaccine series completed Tendinitis of elbow Hyperlipidemia Spondylosis of lumbosacral region Benign paroxysmal positional vertigo GERD (gastroesophageal reflux disease) Surgical History H/O colonoscopy History of bilateral knee replacement History of tonsillectomy History of thumb surgery H/O left knee surgery Family History Father Healthy male adult Mother HTN (hypertension) Breast cancer Skin cancer Thyroid disorder Daughter Allergies Son No problems noted. Son No problems noted. Sister No problems noted. Sister No problems noted. Brother No problems noted. Brother No problems noted. 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 1. Little interest or pleasure in doing things: not at all 2. Feeling down, depressed, or hopeless: not at all 3. Trouble falling or staying asleep, or sleeping too much: not at all 4. Feeling tired or having little energy: not at all 5. Poor appetite or overeating: not at all 6. Feeling bad about yourself - or that you are a failure or have let yourself or your family down: not at all 7. Trouble concentrating on things, such as reading the newspaper or watching television: not at all 8. Moving or speaking so slowly that other people could have noticed. Or the opposite - being so fidgety or restless that you have been moving around a lot more than usual: not at all 9. Thoughts that you would be better off or of hurting yourself in some way: not at all Total score: 0 Depression Screening Interpretation: Negative Depression Screening Done: Yes 10628 - PHQ-9 Billing: Yes Source: Developed by Drs. Hong Weiss, Marianne Herrera, Surinder Trujillo and colleagues, with an educational leslie from [employer]. Thrive Questionnaire Date Thrive assessed: 01/20/24 I am a: Patient What is your living situation today?: I have a steady place to live Within the past 12 months, did you worry whether your food would run out before you got money to buy more?: Never true Do you have trouble paying for medicines?: No Do you have trouble getting transportation to medical appointments?: No Do you have trouble paying your heating and electricity bill?: No Do you have trouble taking care of your child, family member or friend?: No Do you have trouble with day-to-day activities such as bathing, preparing meals, shopping, managing finances, etc.?: No Are you currently unemployed and looking for a job?: No Are you interested in more education?: No Please select the resources that you would like help with: None Currently or been in a relationship where the following occur: No concerns reported THRIVE Score: 0 AUDIT C Alcohol Use Questionnaire (AUDIT-C) 1. How often do you have a drink containing alcohol?: Monthly or less 2. How many drinks containing alcohol do you have on a typical day when you are drinking?: 1 or 2 3. How often do you have six or more drinks on one occasion?: Never Total Score: 1 Score Reviewed/Action Taken: Yes ZINA-7 AMB Questionnaire ZINA-7 Date ZINA - 7 assessed: 01/20/24 Feeling nervous, anxious, or on edge: 0 = Not at all Not being able to stop or control worryin = Not at all Worrying too much about different things: 0 = Not at all Trouble relaxin = Not at all Being so restless that it is hard to sit still: 0 = Not at all Becoming easily annoyed or irritable: 0 = Not at all Feeling afraid as if something awful might happen: 0 = Not at all Total ZINA-7 score (0-4 normal; 5-9 mild; 10-14 moderate; 15-21 severe): 0 Source: Developed by Drs. Hong Weiss, Marianne Herrera, Surinder Trujillo and colleagues, with an educational leslie from [employer]. ZINA-7 Assessment Billing ZINA-7 Assessment Tool: ZINA-7 Assessment 48723 Review of Systems Const All systems reviewed & are unremarkable except as noted in HPI and below Card Reports no additional complaints Resp Reports no additional complaints GI Reports no additional complaints Reports no additional complaints Physical exam (Primary Care) Vital Signs: Last Vital Signs Pulse 72 01/20/24 10:16 BP 182/100 H 01/20/24 10:16 Pulse Ox 98 01/20/24 10:16 BMI result Body Mass Index 32.9 Tobacco/Smoking Status: Tobacco use Status Tobacco use date assessed 01/20/24 01/20/24 10:18 Patient Tobacco Use Status Former Tobacco user 01/20/24 10:15 Tobacco use type Cigarette 01/20/24 10:15 e-Cigarette/Vaping Use Never Used 01/20/24 10:15 PHQ-9: PHQ-9 Score PHQ-9: Total score 0 01/20/24 10:18 Depression Screening Interpretation: Negative Thrive Assessment: Date of Thrive Assessment Date Thrive assessed 01/20/24 01/20/24 10:18 Currently or been in a relationship where the following occur: No concerns reported Const General: no acute distress HENMT Head: Yes normal to inspection Mouth: Normal oral and palatal mucosa present Throat: Yes posterior oropharynx normal Eyes General: appearance normal, both eyes and all related structures Resp Effort & Inspection: normal respiratory effort Auscultation: clear to auscultation bilaterally Cardio Rate: bradycardic Heart sounds: S1 normal heart sound present and S2 normal heart sound present GI Inspection: Yes normal to inspection Palpation (GI): Soft to palpation Assessment and Plan Assessment & Plan (1) Hyperlipidemia: Code(s): E78.5 - Hyperlipidemia, unspecified Plan: Patient will return for fasting labs including lipid profile (2) Annual physical exam: Code(s): Z00.00 - Encounter for general adult medical examination without abnormal findings (3) Hypertension, essential: Code(s): I10 - Essential (primary) hypertension Plan: Amlodipine 10 mg will be added to atenolol. Low-sodium diet avoidance of NSAIDs discussed with the patient. He has an appointment with oil operator in 2 weeks. Patient will return in 1 month for a physical (4) Renal cyst: Comment: F/U PVU s/p infection, drainage, 03/2023, persistent hydronephrosis, declining renal function Code(s): N28.1 - Cyst of kidney, acquired (5) CKD (chronic kidney disease) stage 3, GFR 30-59 ml/min: Comment: Secondary to left hydronephrosis, declining of the left kidney function, referred to nephrology 12/2023 Code(s): N18.30 - Chronic kidney disease, stage 3 unspecified Plan: As above avoid nephrotoxins monitor renal function Orders: Orders Comprehensive [place]. Panel Fast 1 Month E78.5 - Hyperlipidemia, unspecified, I10 - Essential (primary) hypertension, N18.30 - Chronic kidney disease, stage 3 unspecified, N28.1 - Cyst of kidney, acquired, Z00.00 - Encounter for general adult medical examination without abnormal findings Complete Blood Count Auto Diff 1 Month E78.5 - Hyperlipidemia, unspecified, I10 - Essential (primary) hypertension, N18.30 - Chronic kidney disease, stage 3 unspecified, N28.1 - Cyst of kidney, acquired, Z00.00 - Encounter for general adult medical examination without abnormal findings Lipid Panel 1 Month E78.5 - Hyperlipidemia, unspecified, I10 - Essential (primary) hypertension, N18.30 - Chronic kidney disease, stage 3 unspecified, N28.1 - Cyst of kidney, acquired, Z00.00 - Encounter for general adult medical examination without abnormal findings UA w Microscopic 1 Month E78.5 - Hyperlipidemia, unspecified, I10 - Essential (primary) hypertension, N18.30 - Chronic kidney disease, stage 3 unspecified, N28.1 - Cyst of kidney, acquired, Z00.00 - Encounter for general adult medical examination without abnormal findings PSA,Total (Free>4and<10) 1 Month E78.5 - Hyperlipidemia, unspecified, I10 - Essential (primary) hypertension, N18.30 - Chronic kidney disease, stage 3 unspecified, N28.1 - Cyst of kidney, acquired, Z00.00 - Encounter for general adult medical examination without abnormal findings Medications: New amlodipine 10 mg PO DAILY 90 tabs 0RF Coding Level of Care Code Est Pt Level 3 (93198) Diagnoses Hyperlipidemia E78.5 Annual physical exam Z00.00 Hypertension, essential I10 Renal cyst N28.1 CKD (chronic kidney disease) stage 3, GFR 30-59 ml/min N18.30 Additional Codes ZINA-7 Assessment Billing - ZINA-7 Assessment Tool: ZINA-7 Assessment 14443 ([id number])
[2024-01-20 10:16] VITALS: BP 160/100; PULSE 72; O2SAT 98; BMI 32.9
== END 2024-01-20 10:56 | disposition home or self-care (01) ==
PROVIDERS: PCP Internal Medicine; Visit Provider Internal Medicine
DX: I12.9 Hypertensive chronic kidney disease with stage 1 through stage 4 chronic kidney disease, or unspecified chronic kidney disease (principal); N18.30 Chronic kidney disease, stage 3 unspecified; E78.5 Hyperlipidemia, unspecified; N28.1 Cyst of kidney, acquired
CPT/HCPCS: 99213

== ENCOUNTER 2024-03-02 09:02 | Outpatient (REF) | payer MEDICARE, OTHER, SELFPAY ==
[2024-03-02 10:02] LABS: Appearance Urine Clear; Color Urine Yellow; Glucose Urine UA Negative (Negative); Leukocyte Esterase Urine Negative (Negative); Nitrite Urine Negative (Negative); PH 5.5 (5.0-9.0); Specific Gravity - Urine 1.015 (1.005-1.025); Urine Blood Negative (Negative); Urine Ketones Negative (Negative); Urine Protein Negative (Neg-Trace)
[2024-03-02 10:07] LABS: MANUAL DIFF FLAG NO
[2024-03-02 10:10] LABS: Bacteria Urine None Seen (None Seen); Hyaline Casts Urine 0-2 /LPF (0-2); RBC Urine 0-2 /HPF (0-2); Squamous Epithelial Cell Urine 0-2 /HPF (0-2); WBC Urine 0-5 /HPF (0-5)
[2024-03-02 10:11] LABS: Basophils Percent Auto 0.6 % (0-2); Eosinophils Absolute Auto 0.1 X10*3/uL (0.0-0.4); Eosinophils Percent Auto 2.8 % (0-4); Hematocrit 43.3 % (42.0-52.0); Hemoglobin 14.7 g/dl (14.0-18.0); Imm Gran Abs Auto 0.01 X10*3/uL (0.00-0.03); Imm Gran Pct Auto 0.2 % (0.0-0.4); Lymphocytes Absolute Auto 1.8 X10*3/uL (1.2-4.9); Lymphocytes Percent Auto 37.8 % (20-40); Mean Corpuscular HGB Conc 33.9 g/dl (31.0-36.0); Mean Corpuscular Hemoglobin 29.2 pg (27.0-33.0); Mean Corpuscular Volume 86.1 fL (80.0-98.0); Mean Platelet Volume 10.9 fL (9.4-12.4); Monocytes Absolute Auto 0.4 X10*3/uL (0.1-1.2); Monocytes Percent Auto 8.4 % (2-11); Neutrophils Absolute Auto 2.3 x10*3/uL (2.0-8.3); Neutrophils Percent Auto 50.2 % (45-73); Platelet Count 217 X10*3/uL (160-400); Red Blood Count 5.03 X10*6/uL (4.60-5.80); Red Cell Distribution Width 13.2 % (11.0-16.0); White Blood Count 4.7 X10*3/uL (4.8-10.8)
[2024-03-02 10:57] LABS: Alanine Aminotransferase 36 U/L (0-40); Albumin Level 4.2 g/dL (3.5-5.0); Alkaline Phosphatase 60 U/L (39-117); Anion Gap 11 (12-20); Aspartate Amino Transferase 25 U/L (5-37); Bilirubin Total 0.8 mg/dL (0.0-1.0); Blood Urea Nitrogen 31 mg/dL (9-16); Calcium 9.2 mg/dL (8.4-10.2); Carbon Dioxide 26 mmol/L (22-29); Chloride 107 mmol/L (96-108); Cholesterol 195 mg/dL (<200); Estimated Glomerular Filt Rate 36; Glucose Fasting 91 mg/dL (60-99); HDL Cholesterol 49 mg/dL (>40); LDL Cholesterol Calculated 121 mg/dL (<100); Potassium 4.8 mmol/L (3.3-5.1); Sodium 139 mmol/L (135-145); Total Protein 6.7 g/dL (6.5-8.0); Triglycerides 127 mg/dL (<150)
[2024-03-02 11:03] LABS: PSA,Total (Free>4and<10) 0.29 ng/mL (0.00-4.00)
== END 2024-03-02 09:03 | disposition home or self-care (01) ==
LOC: HO.HMGCLDS 09:02
PROVIDERS: PCP Internal Medicine; Visit Provider Internal Medicine
DX: Z00.00 Encounter for general adult medical examination without abnormal findings (principal); I12.9 Hypertensive chronic kidney disease with stage 1 through stage 4 chronic kidney disease, or unspecified chronic kidney disease; N18.30 Chronic kidney disease, stage 3 unspecified; E78.5 Hyperlipidemia, unspecified; N28.1 Cyst of kidney, acquired; Z12.5 Encounter for screening for malignant neoplasm of prostate
CPT/HCPCS: 36415; 80053; 80061; 81001; 84153; 85025

== ENCOUNTER 2024-03-06 11:26 | Outpatient (AMB) | payer MEDICARE, OTHER, SELFPAY ==
[2024-03-06 11:38] VITALS: BP 122/76; PULSE 50; O2SAT 97; BMI 32.9
--- NOTE | 2024-03-06 11:38 | MHC.PC.OV ---
Vital Signs 03/06/24 11:38 Height 5 ft 5 in Weight 198 lb BMI 32.9 BP 122/76 Blood Pressure Location Lt brachial Position Sitting Pulse 50 Pulse Source Pulse Oximeter Pulse Oximetry (%) 97 Oxygen Delivery Method Room Air Intake Visit Reasons: Annual PE Intake Note: Pt is here today for PE. Allergies amoxicillin Allergy (Unknown, Verified 01/20/24 10:18) Nausea and Vomiting oxycodone [Percocet] Allergy (Unknown, Verified 01/20/24 10:18) nausea and vomiting Medication List - Last Reconciled 03/06/24 by Ching Perez MD amlodipine 10 mg PO DAILY atenolol 25 mg PO DAILY cholecalciferol (vitamin D3) 50 mcg PO BEDTIME lisinopril 10 mg PO DAILY magnesium citrate 100 mg PO DAILY omega-3 fatty acids 1,000 mg PO DAILY Tobacco use date assessed: 03/06/24 Fall risk assessment: No Falls in past year Last assessed Fall Risk: 03/06/24 Dental Screening Dental Screen Date: 03/06/24 Did you have a dental visit in the last 12 months?: Yes Did you have a dental problem in the last 6 months where you did not have access to dental care?: No Was dental information given to patient?: Patient has dentist HPI Annual PE HPI Details Patient presents for a physical. He was seen by traditional chinese herbalist 2 weeks ago and started on 10 mg of lisinopril. Patient has been monitoring his blood pressure at home with the readings between 130 over 80 to 112/75. He denies side effects. [facility] Medical History COVID-19 vaccine series completed Tendinitis of elbow Hyperlipidemia Spondylosis of lumbosacral region Benign paroxysmal positional vertigo GERD (gastroesophageal reflux disease) Surgical History H/O colonoscopy History of bilateral knee replacement History of tonsillectomy History of thumb surgery H/O left knee surgery Family History Father Healthy male adult Mother HTN (hypertension) Breast cancer Skin cancer Thyroid disorder Daughter Allergies Son No problems noted. Son No problems noted. Sister No problems noted. Sister No problems noted. Brother No problems noted. Brother No problems noted. 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 1. Little interest or pleasure in doing things: not at all 2. Feeling down, depressed, or hopeless: not at all 3. Trouble falling or staying asleep, or sleeping too much: not at all 4. Feeling tired or having little energy: not at all 5. Poor appetite or overeating: not at all 6. Feeling bad about yourself - or that you are a failure or have let yourself or your family down: not at all 7. Trouble concentrating on things, such as reading the newspaper or watching television: not at all 8. Moving or speaking so slowly that other people could have noticed. Or the opposite - being so fidgety or restless that you have been moving around a lot more than usual: not at all 9. Thoughts that you would be better off or of hurting yourself in some way: not at all Total score: 0 Depression Screening Interpretation: Negative Depression Screening Done: Yes 35349 - PHQ-9 Billing: Yes Source: Developed by Drs. Hong Weiss, Marianne Herrera, Surinder Trujillo and colleagues, with an educational leslie from [employer]. Thrive Questionnaire Date Thrive assessed: 01/20/24 I am a: Patient What is your living situation today?: I have a steady place to live Within the past 12 months, did the food you bought not last and you didn't have the money to get more?: Often true Within the past 12 months, did you worry whether your food would run out before you got money to buy more?: Never true Do you have trouble paying for medicines?: No Do you have trouble getting transportation to medical appointments?: No Do you have trouble paying your heating and electricity bill?: No Do you have trouble taking care of your child, family member or friend?: No Do you have trouble with day-to-day activities such as bathing, preparing meals, shopping, managing finances, etc.?: No Are you currently unemployed and looking for a job?: No Are you interested in more education?: No Please select the resources that you would like help with: None Currently or been in a relationship where the following occur: No concerns reported THRIVE Score: 1 ZINA-7 AMB Questionnaire ZINA-7 Date ZINA - 7 assessed: 03/06/24 Source: Developed by Drs. Hong Weiss, Marianne Herrera, Surinder Trujillo and colleagues, with an educational leslie from [employer]. Review of Systems Const All systems reviewed & are unremarkable except as noted in HPI and below Eyes Reports no additional complaints Card Reports no additional complaints Resp Reports no additional complaints GI Reports no additional complaints Reports no additional complaints Physical exam (Primary Care) Vital Signs: Last Vital Signs Pulse 50 03/06/24 11:38 BP 122/76 03/06/24 11:38 Pulse Ox 97 03/06/24 11:38 Oxygen Delivery Method Room Air 03/06/24 11:38 BMI result Body Mass Index 32.9 Tobacco/Smoking Status: Tobacco use Status Tobacco use date assessed 03/06/24 03/06/24 11:43 Patient Tobacco Use Status Former Tobacco user 03/06/24 11:39 Tobacco use type Cigarette 03/06/24 11:39 e-Cigarette/Vaping Use Never Used 03/06/24 11:39 PHQ-9: PHQ-9 Score PHQ-9: Total score 0 03/06/24 11:46 Depression Screening Interpretation: Negative Thrive Assessment: Date of Thrive Assessment Date Thrive assessed 01/20/24 03/06/24 11:39 Currently or been in a relationship where the following occur: No concerns reported Const General: no acute distress HENMT Head: Yes normal to inspection Ears: hearing grossly normal bilaterally General nose exam: Normal external nose present Mouth: Normal oral and palatal mucosa present Throat: Yes posterior oropharynx normal Eyes General: appearance normal, both eyes and all related structures Neck Neck: Yes no lymphadenopathy and Yes supple Resp Effort & Inspection: normal respiratory effort Auscultation: clear to auscultation bilaterally Cardio Rhythm: regular rhythm Heart sounds: S1 normal heart sound present and S2 normal heart sound present GI Inspection: Yes normal to inspection Palpation (GI): Soft to palpation Percussion: Yes normal to percussion Auscultation: normal bowel sounds Coding Level of Care Code Est Pt Prev Care >65y(23548) Diagnoses CKD (chronic kidney disease) stage 3, GFR 30-59 ml/min N18.30 Hypertension, essential I10 Annual physical exam Z00.00 Hyperlipidemia E78.5 Assessment & Plan Assessment & Plan (1) CKD (chronic kidney disease) stage 3, GFR 30-59 ml/min: Comment: Secondary to left hydronephrosis, declining of the left kidney function, referred to nephrology 12/2023 Code(s): N18.30 - Chronic kidney disease, stage 3 unspecified Category: Medical Plan: Monitor renal function avoid nephrotoxins check basic metabolic panel in 1 month (2) Hypertension, essential: Code(s): I10 - Essential (primary) hypertension Category: Medical Plan: Continue current medications, low-sodium diet regular exercise (3) Annual physical exam: Code(s): Z00.00 - Encounter for general adult medical examination without abnormal findings Category: Medical Plan: Well-balanced diet regular exercise discussed with the patient, he is up-to-date with colonoscopy (4) Hyperlipidemia: Code(s): E78.5 - Hyperlipidemia, unspecified Category: Medical Plan: Continue low-cholesterol diet
== END 2024-03-06 12:23 | disposition home or self-care (01) ==
LOC: HO.HMCC 11:27
PROVIDERS: PCP Internal Medicine; Visit Provider Internal Medicine
DX: Z00.00 Encounter for general adult medical examination without abnormal findings (principal); I12.9 Hypertensive chronic kidney disease with stage 1 through stage 4 chronic kidney disease, or unspecified chronic kidney disease; N18.30 Chronic kidney disease, stage 3 unspecified; E78.5 Hyperlipidemia, unspecified

== ENCOUNTER → 2024-03-06 11:26 | Outpatient (BNVA) | payer MEDICARE, OTHER, SELFPAY | PROVIDERS: PCP Internal Medicine; Visit Provider Internal Medicine | DX: Z00.01 Encounter for general adult medical examination with abnormal findings (principal); I12.9 Hypertensive chronic kidney disease with stage 1 through stage 4 chronic kidney disease, or unspecified chronic kidney disease; N18.30 Chronic kidney disease, stage 3 unspecified; E78.5 Hyperlipidemia, unspecified | CPT/HCPCS: 96127; 99397 ==

== ENCOUNTER 2024-04-06 09:40 | Outpatient (REF) | payer MEDICARE, OTHER, SELFPAY ==
[2024-04-06 11:13] LABS: Anion Gap 13 (12-20); Blood Urea Nitrogen 31 mg/dL (9-16); Calcium 8.5 mg/dL (8.4-10.2); Carbon Dioxide 22 mmol/L (22-29); Chloride 110 mmol/L (96-108); Estimated Glomerular Filt Rate 36; Glucose Random 91 mg/dL (60-115); Potassium 4.9 mmol/L (3.3-5.1); Sodium 140 mmol/L (135-145)
== END 2024-04-06 09:41 | disposition home or self-care (01) ==
LOC: HO.HMGCLDS 09:40
PROVIDERS: PCP Internal Medicine; Visit Provider Internal Medicine
DX: I10 Essential (primary) hypertension (principal)
CPT/HCPCS: 36415; 80048

== ENCOUNTER 2024-04-10 10:15 | Outpatient (AMB) | payer MEDICARE, OTHER, SELFPAY ==
--- NOTE | 2024-04-10 10:38 | MHC.PC.OV ---
Vital Signs 04/10/24 10:39 Height 5 ft 5 in Weight 200 lb BMI 33.3 BP 110/70 Blood Pressure Location Lt brachial Position Sitting Pulse 70 Pulse Source Pulse Oximeter Pulse Oximetry (%) 97 Oxygen Delivery Method Room Air Intake Visit Reasons: follow up bp before trip Allergies amoxicillin Allergy (Unknown, Verified 04/10/24 10:40) Nausea and Vomiting oxycodone [Percocet] Allergy (Unknown, Verified 04/10/24 10:40) nausea and vomiting Medication List - Last Reconciled 04/10/24 by Ching Perez MD amlodipine 10 mg PO DAILY atenolol 25 mg PO DAILY cholecalciferol (vitamin D3) 50 mcg PO BEDTIME lisinopril 10 mg PO DAILY magnesium citrate 100 mg PO DAILY omega-3 fatty acids 1,000 mg PO DAILY Tobacco use date assessed: 04/10/24 Fall risk assessment: No Falls in past year Last assessed Fall Risk: 04/10/24 Dental Screening Dental Screen Date: 04/10/24 Did you have a dental visit in the last 12 months?: Yes Did you have a dental problem in the last 6 months where you did not have access to dental care?: No Was dental information given to patient?: Patient has dentist HPI follow up bp before trip HPI Details Pt presents for f/u HTN and CKD 3, stable on meds. Patient is going to [place] for April Duration 3 [facility] Medical History COVID-19 vaccine series completed Tendinitis of elbow Hyperlipidemia Spondylosis of lumbosacral region Benign paroxysmal positional vertigo GERD (gastroesophageal reflux disease) Surgical History H/O colonoscopy History of bilateral knee replacement History of tonsillectomy History of thumb surgery H/O left knee surgery Family History Father Healthy male adult Mother HTN (hypertension) Breast cancer Skin cancer Thyroid disorder Daughter Allergies Son No problems noted. Son No problems noted. Sister No problems noted. Sister No problems noted. Brother No problems noted. Brother No problems noted. 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 3. Trouble falling or staying asleep, or sleeping too much: not at all 5. Poor appetite or overeating: not at all Source: Developed by Drs. Hong Wesis, Marianne Herrera, Surinder Trujillo and colleagues, with an educational leslie from [employer]. Thrive Questionnaire Date Thrive assessed: 01/20/24 I am a: Patient What is your living situation today?: I have a steady place to live Within the past 12 months, did the food you bought not last and you didn't have the money to get more?: Often true Within the past 12 months, did you worry whether your food would run out before you got money to buy more?: Never true Do you have trouble paying for medicines?: No Do you have trouble getting transportation to medical appointments?: No Do you have trouble paying your heating and electricity bill?: No Do you have trouble taking care of your child, family member or friend?: No Do you have trouble with day-to-day activities such as bathing, preparing meals, shopping, managing finances, etc.?: No Are you currently unemployed and looking for a job?: No Are you interested in more education?: No Please select the resources that you would like help with: None Currently or been in a relationship where the following occur: No concerns reported THRIVE Score: 1 ZINA-7 AMB Questionnaire ZINA-7 Date ZINA - 7 assessed: 03/06/24 Source: Developed by Drs. Hong Weiss, Surinder Vargas and colleagues, with an educational leslie from [employer]. Review of Systems Const All systems reviewed & are unremarkable except as noted in HPI and below Eyes Reports no additional complaints ENT Reports no additional complaints Card Reports no additional complaints Resp Reports no additional complaints GI Reports no additional complaints Reports no additional complaints Physical exam (Primary Care) Vital Signs: Last Vital Signs Pulse 70 04/10/24 10:39 BP 110/70 04/10/24 10:39 Pulse Ox 97 04/10/24 10:39 Oxygen Delivery Method Room Air 04/10/24 10:39 BMI result Body Mass Index 33.3 Tobacco/Smoking Status: Tobacco use Status Tobacco use date assessed 04/10/24 04/10/24 10:41 Patient Tobacco Use Status Former Tobacco user 04/10/24 10:41 Tobacco use type Cigarette 04/10/24 10:41 e-Cigarette/Vaping Use Never Used 04/10/24 10:41 Thrive Assessment: Date of Thrive Assessment Date Thrive assessed 01/20/24 04/10/24 10:41 Currently or been in a relationship where the following occur: No concerns reported Const General: no acute distress HENMT Head: Yes normal to inspection Face and sinus: Yes normal facial exam Throat: Yes posterior oropharynx normal Eyes General: appearance normal, both eyes and all related structures Neck Neck: Yes supple Resp Effort & Inspection: normal respiratory effort Auscultation: clear to auscultation bilaterally Cardio Rhythm: regular rhythm Heart sounds: S1 normal heart sound present and S2 normal heart sound present GI Inspection: Yes normal to inspection Palpation (GI): Soft to palpation Coding Level of Care Code Est Pt Level 4 (80661) Diagnoses Hyperlipidemia E78.5 Hypertension, essential I10 CKD (chronic kidney disease) stage 3, GFR 30-59 ml/min N18.30 Assessment & Plan Assessment & Plan (1) Hyperlipidemia: Code(s): E78.5 - Hyperlipidemia, unspecified Category: Medical Plan: Low-cholesterol diet regular physical activity discussed with the patient (2) Hypertension, essential: Code(s): I10 - Essential (primary) hypertension Category: Medical Plan: Continue current medications (3) CKD (chronic kidney disease) stage 3, GFR 30-59 ml/min: Comment: Secondary to left hydronephrosis, declining of the left kidney function, referred to nephrology 12/2023 Code(s): N18.30 - Chronic kidney disease, stage 3 unspecified Category: Medical Plan: Monitor renal function avoid nephrotoxins Orders: Orders Comprehensive [place]. Panel Fast 3 Months E78.5 - Hyperlipidemia, unspecified, I10 - Essential (primary) hypertension, N18.30 - Chronic kidney disease, stage 3 unspecified Lipid Panel 3 Months E78.5 - Hyperlipidemia, unspecified, I10 - Essential (primary) hypertension, N18.30 - Chronic kidney disease, stage 3 unspecified Medications: Refilled amlodipine 10 mg PO DAILY 90 tabs 3RF atenolol 25 mg PO DAILY 90 tabs 3RF
[2024-04-10 10:39] VITALS: BP 110/70; PULSE 70; O2SAT 97; BMI 33.3
== END 2024-04-10 12:28 | disposition home or self-care (01) ==
PROVIDERS: PCP Internal Medicine; Visit Provider Internal Medicine
DX: E78.5 Hyperlipidemia, unspecified (principal); I10 Essential (primary) hypertension; N18.30 Chronic kidney disease, stage 3 unspecified

== ENCOUNTER → 2024-04-10 10:15 | Outpatient (BNVA) | payer MEDICARE, OTHER, SELFPAY | PROVIDERS: PCP Internal Medicine; Visit Provider Internal Medicine | DX: E78.5 Hyperlipidemia, unspecified (principal); I12.9 Hypertensive chronic kidney disease with stage 1 through stage 4 chronic kidney disease, or unspecified chronic kidney disease; N18.30 Chronic kidney disease, stage 3 unspecified | CPT/HCPCS: 99212 ==

== ENCOUNTER 2024-07-10 09:00 | Outpatient (AMB) | payer MEDICARE, OTHER, SELFPAY ==
[2024-07-10 09:03] VITALS: BP 120/82; PULSE 58; O2SAT 98; BMI 33.1
--- NOTE | 2024-07-10 09:03 | AM.OFFWIN_ITS ---
Intake Vital Signs 07/10/24 09:03 Height 5 ft 5 in Weight 199 lb BMI 33.1 BP 120/82 Blood Pressure Location Rt brachial Position Sitting Pulse 58 Pulse Source Pulse Oximeter Pulse Oximetry (%) 98 Oxygen Delivery Method Room Air Intake Visit Reasons: EP-lt eye cloud vision Intake Note: Patient here for left eye vision change, he states that if he looks to the side he sees a cloud and has been going on for a couple of days. Patient Tobacco Use Status: Former Tobacco user Allergies amoxicillin Allergy (Unknown, Verified 07/10/24 09:03) Nausea and Vomiting oxycodone [Percocet] Allergy (Unknown, Verified 07/10/24 09:03) nausea and vomiting Do you need a note to return to daycare/school/sports/work: No HPI HPI Comments History of Present Illness Details History of Present Illness - The patient is a 68-year-old male pres enting with visual changes in the left eye which he noticed a few days ago. - Reported experiencing visual disturban hudson such as a skinny light visible at night and a skinny cloud during the day, lasting for a couple of days. - The discomfort is not associated with pain, discharge, or foreign body sensation. - Swelling, redness, or fever is notably absent. - he states he has a history of increase d tearing in the left eye is noted without apparent cause. - The patient has an existing [facility] ip with an eye doctor in [place] Physical Exam General: Cooperative, healthy appearing, comfortable, no acute distress and well developed Orientation: Patient oriented x3 Limitations: No limitations Head: Normal to inspection Ears: Hearing grossly normal bilaterally Nose: Normal External nose present Face and sinus: Normal facial exam Eyes: Appearance normal, both eyes and all related structures, PERRLA, no injection Neck: Normal visual inspection and Yes full ROM Respiratory: Normal respiratory effort and able to speak in complete sentences. Skin: No rashes or lesions noted Neuro: Patient oriented x3 Extremities: Normal to inspection [facility] Medical History COVID-19 vaccine series completed Tendinitis of elbow Hyperlipidemia Spondylosis of lumbosacral region Benign paroxysmal positional vertigo GERD (gastroesophageal reflux disease) Surgical History H/O colonoscopy History of bilateral knee replacement History of tonsillectomy History of thumb surgery H/O left knee surgery Family History Father Healthy male adult Mother HTN (hypertension) Breast cancer Skin cancer Thyroid disorder Daughter Allergies Son No problems noted. Son No problems noted. Sister No problems noted. Sister No problems noted. Brother No problems noted. Brother No problems noted. 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 [employer] Current occupational exposures/hazards: No Cognitive needs: No Hearing needs: No Vision needs: No Review of Systems Const All systems reviewed & are unremarkable except as noted in HPI and below Physical Exam Vital Signs: Last Vital Signs Pulse 58 07/10/24 09:03 BP 120/82 07/10/24 09:03 Pulse Ox 98 07/10/24 09:03 Oxygen Delivery Method Room Air 07/10/24 09:03 BMI result Body Mass Index 33.1 Assessment & Plan Assessment & Plan (1) Visual changes: Code(s): H53.9 - Unspecified visual disturbance Plan: The patient presented with recent onset visual disturbances in the left eye that require further diagnostic assessment by an business solutions analyst. Observations of abnormal visual phenomena such as a skinny light and skinny cloud prompted the recommendation to seek specialized eye care. Examination findings showed no signs of infection or injury, but due to unusual symptomatology, a referral to the patient's known business solutions analyst was suggested to facilitate a thorough evaluation and appropriate management of the issue, considering the absence of redness, pain, or discharge noted during the visit. Patient was informed and verbally consented to the use of an ambient scribe for clinic note documentation during this visit. Coding Level of Care Code Est Pt Level 3 (74759) Diagnoses Visual changes H53.9
--- OUTSIDE RECORDS SUMMARY | 2024-07-10 09:54 | XMS_ITS | Patient Health Record ---
Author Organization [facility] Address [address] [facility] [address] [place] [address] Care Team Providers Care Deputy Head Name Role Phone Natalya Perezanna Primary Care Provider BRIGITTE Bowles Unavailable [phone] Allergies Allergen (clinical drug ingredient) Drug/Non Drug Allergy documented on EMR Reaction Allergy Type Onset Date Status amoxicillin Amoxicillin nausea and vomiting Drug Allergy Active oxycodone Oxycodone nausea and vomiting Drug Allergy Active Results Component Value Reference Range Notes ADDY by IFA Rfx Titer/Pattern -[id number] Reviewed date:01/10/2024 11:05:39 AM Interpretation: Performing Lab:[facility] [place], [address] [place] [address], Phone - [phone], Director - Ale Notes/Report: ADDY by IFA Rfx Titer/Pattern Negative Negative <1:80 Borderline 1:80 Positive >1:80 ICAP nomenclature: AC-0 For more information about Hep-2 cell patterns use ANApatterns.org, the official website for the International Consensus on Antinuclear Antibody (ADDY) Patterns (ICAP). Anti-CCP Ab, IgG/IgA-[id number] Reviewed date:01/10/2024 11:05:39 AM Interpretation: Performing Lab:[facility], [place] [facility], Phone - [phone], Director - Sanjivdry Notes/Report: Anti-CCP Ab, IgG/IgA 6 0-19 units Negative <20 Weak positive 20 - 39 Moderate positive 40 - 59 Strong positive >59 C-Reactive Protein, Quant-00 6627 Reviewed date:01/10/2024 11:05:39 AM Interpretation: Performing Lab:[facility] [place], [address] [facility], Phone - [phone], Director - Ale Notes/Report: C-Reactive Protein, Quant 3 0-10 mg/L Rheumatoid Factor (RF)-39662 2 Reviewed date:01/10/2024 11:05:39 AM Interpretation: Performing Lab:[facility] [place], [place] [facility], Phone - [phone], Director - Ale Notes/Report: Rheumatoid Factor (RF) <10.0 <14.0 IU/mL Sedimentation Rate-Westergre n-[id number] Reviewed date:01/10/2024 11:05:39 AM Interpretation: Performing Lab:[facility] [place], [place] [facility], [place], Phone - [phone], Director - Ale Notes/Report: Sedimentation Rate-Westergren 2 0-30 mm/hr Reason For Referral No Information Medications Medication SIG (Take, Route, Frequency, Duration) Notes Start Date End Date Status [place] 3 1000 MG 1 capsule Orally Thr ee times a day Active Atenolol 25 MG 1 tablet Orally Once a day Active Vitamin D3 50 MCG (1999) 1 capsule Orally Once a day Active Magnesium Citrate 100 MG as directed Orally Active Problems Problem Type SNOMED Code ICD Code Onset Dates Problem Status W/U Status Risk Notes Problem 23545755 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 Problem 70498456 Acquired hallux valgus of left foot (M20.12) Active confirmed Problem 0764441 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 Problem [id number] Acquired hallux valgus of right foot (M20.11) Active confirmed Vital Signs Height 5ft5in in 01/06/2024 Weight 195.3 lbs 01/06/2024 BMI 32.5 kg/m2 01/06/2024 Encounters Encounter Location Date Provider Diagnosis [facility] [address] 01/06/2024 BRIGITTE CASTANEDA Acquired hallux valg us of left foot M20.12 ; Deformity of toe of left foot M20.62 ; Inflammatory arthropathy M19.90 ; Acquired hallux valgus of right foot M20.11 and Metatarsus adductus Q66.229 [facility] [address] [address] 12/12/2023 BRIGITTE CASTANEDA [facility] [address] [address] 01/10/2024 BRIGITTE CASTANEDA [facility] [address] [address] 03/12/2024 BRIGITTE CASTANEDA Assessments Encounter Date Diagnosis (ICD Code) Assessment Notes Treatment Notes Treatment Clinical Notes Section Notes 01/06/2024 Deformity of toe of left foot (ICD-10 - M20.62) 01/06/2024 Acquired hallux valgus of left foot (ICD-10 - M20.12) Patient examined and evaluated. I reviewed his past medical history in great detail with him and his . Three weightbearing radiographs of the right and left foot were taken today and reviewed. He has complex forefoot deformity present bilaterally with metatarsus adductus, flexion and dorsal deviation of all lesser toes, and hallux valgus deformity. He has rearfoot cavus. No evidence of neurological deficit on exam, but can not rule out inflammatory component like RA as there is a family history. I first advised that inflammatory labs be done to check for RA. I discussed that surgery would involve addressing the metatarsus adductus and shortening the lesser metatarsals, correction of all the flexion deformities in the lesser toes and correction of the hallux valgus deformity. I would like to keep most of the surgery as minimally invasive as possible. The rearfoot cavus seems minimally influential on the forefoot and does not seem to bother him, therefore rearfoot procedures will be avoided at this time. I advised that this would require 4 months out of work with 6-12 months of swelling. He expressed understanding and is thinking about next winter/early spring. He will discuss more with his and family. I provided him with the labs to have done and my surgical information. I encouraged him to call if he has any additional questions or concerns. 01/06/2024 Inflammatory arthropathy (ICD-10 - M19.90) 01/06/2024 Acquired hallux valgus of right foot (ICD-10 - M20.11) 01/06/2024 Metatarsus adductus (ICD-10 - Q66.229) Plan Of Treatment No Information Insurance Providers Payer Name Payer Address Payer Phone Subscriber Number Group Number Insured Name Patient Relationship to Insured Coverage Start Date Coverage End Date Medicare of [place] [address] [place] [address] [id number] Lisseth Stover Self - patient is the insured [facility] [address] [place] [address] [phone] [id number] Lisseth Stover Self - patient is the insured Medical (General) History Medical History History ICD Code hyperlipidemia spondylosis of lumbosacral region gastroesophageal reflux disease (GERD) benign paroxysmal positional vertigo COVID vaccinated Essential Hypertension Benign cyst on left kidney w ith 20% kidney function: follows with urology and soon nephrology. Bilateral knee osteoarthritis s/p bilate ral total knee replacements. Surgical History Surgery Date(Month/Year) colonoscopy bilateral knee replacements 2018 tonsillectomy thumb surgery
--- OUTSIDE RECORDS SUMMARY | 2024-07-10 09:55 | XMS_ITS ---
Author Organization [facility] Address [address] [address] Care Team Providers Care Mail Teller Name Role Phone Ching Perez Primary Care Provider UnavailJAMEE Dia Unavailable [phone] REASON FOR VISIT 2 wk post-op Encounters Encounter Location Date Provider Diagnosis [facility] [address] [address] 06/13/2024 JAMEE CASTANEDA Plan Of Treatment No Information Progress Notes * JAS FinaanjuroDOB:1955 (68 yo M)Acc No.[id number]:06/13/2024 post-op Patient:?Lisseth STOVER Provider:?Jamee Andres DPM :1955???Age:68 Y???Sex:Male Chandrakant e:06/13/2024 Phone: Address:[address] [id number] Pcp:Ching Perez Subjective: * Chief Complaints: Objective: * Vitals:? Assessment: Plan: * Treatment: * Billing Information: * Electronic signature of BLAINE CASTANEDA D.P.M. on 07/10/2024 at 09:54 AM EST Sign off status: Pending * Provider:?Jamee Andres DPM Date:?06/13 Generated for Adal keith/Alvarez/Bobitting on:?07/10/2024 09:54 AM EST
--- OUTSIDE RECORDS SUMMARY | 2024-07-10 09:55 | XMS_ITS | Encounter Summary ---
Author Organization [facility] Address [address] [place] [address] Phone Care Team Providers Care Laser Beam Machine Operator Name Role Phone Ching Perez MD Primary Care Provider [phone] Encounter Details Date Type Department Care Team (Late st Contact Info) Description 01/12/2024 Documentation Only [facility] [address] [place] [address] Amber Stover [facility] [place] [address] Social History Tobacco Use Types Packs/Day Years Used Date Smoking Tobacco: Never Assessed Sex and Gender Information Value Date Recorded Sex Assigned at Not on file Legal Sex Male 8:45 AM EDT Gender Identity Not on file Sexual Orientation Not on file documented as of this encounter Plan of Treatment Upcoming Encounters Date Type Department Care Team (Late st Contact Info) Description 08/07/2024 2:45 PM EDT Office Visit [facility] [address] [place] [address] Kwadwo Jason MD [address] [place] [address] [place] [id number] documented as of this encounter Visit Diagnoses Not on filedocumented in this encounter Care Teams Laser Beam Machine Operator Relationship Specialty Start Date End Date Ching Perez MD [id number] [place] [address] PCP - General Internal Medicine 01/06/24 documented as of this encounter
--- OUTSIDE RECORDS SUMMARY | 2024-07-10 09:55 | XMS_ITS ---
Author Organization [facility] Address [address] [address] Care Team Providers Care Car Escort Name Role Phone Ching Perez Primary Care Provider UnavailJAMEE Dia Unavailable [phone] REASON FOR VISIT 1 wk post-op Encounters Encounter Location Date Provider Diagnosis [facility] [address] [address] 06/06/2024 JAMEE CASTANEDA Plan Of Treatment No Information Progress Notes * STOVERElijahroDOB:1955 (68 yo M)Acc No.[id number]:06/06/2024 post-op Patient:?Lisseth STOVER Provider:?Jamee Andres DPM :1955???Age:68 Y???Sex:Male Chandrakant e:06/06/2024 Phone: Address:[address] [id number] Pcp:Ching Perez Subjective: * Chief Complaints: Objective: * Vitals:? Assessment: Plan: * Treatment: * Billing Information: * Electronic signature of BLAINE CASTANEDA D.P.M. on 07/10/2024 at 09:55 AM EST Sign off status: Pending * Provider:?Jamee Andres DPM Date:?06/06 Generated for Adal keith/Alvarez/Bobitting on:?07/10/2024 09:55 AM EST
--- OUTSIDE RECORDS SUMMARY | 2024-07-10 09:55 | XMS_ITS ---
Author Organization [facility] Address [address] [address] Care Team Providers Care Dust Handler Name Role Phone Ching Perez Primary Care Provider UnavailJAMEE Dia Unavailable [phone] REASON FOR VISIT Surgery starts at 730am... Left Hallux valgus , left metatarsus adductus and left 2nd to 5th hammertoes Encounters Encounter Location Date Provider Diagnosis [facility] [address] [address] 05/30/2024 JAMEE CASTANEDA Plan Of Treatment No Information Progress Notes * Elijah STOVERroDOB:1955 (68 yo M)Acc No.[id number]:05/30/2024 Patient:?Lisseth STOVER Provider:?Jamee Andres DPDaja :1955???Age:68 Y???Sex:Male Chandrakant e:05/30/2024 Phone: Address:[address] [place], [place]-[phone] Pcp:Ching Perez * Billing Information: * Visit Code:? * Procedure Codes:? * Electronic signature of BLAINE CASTANEDA D.P.M. on 07/10/2024 at 09:55 AM EST Sign off status: Pending * Provider:?Jamee Andres DPM Date:?05/30 Generated for Adal keith/Alvarez/eTransmitting on:?07/10/2024 09:55 AM EST
--- OUTSIDE RECORDS SUMMARY | 2024-07-10 09:55 | XMS_ITS | Clinical Summary ---
Author Organization [facility] Address [address] [place] [address] Phone Care Team Providers Care Manual Qa Tester Name Role Phone Ching Perez MD Primary Care Provider [phone] Allergies No known active allergies Medications Cholecalciferol (EQL Vitamin D3) 50 MCG (1999) capsule Take by mouth Active lisinopril 10 MG tablet Take 1 tablet (10 mg total) by mouth 1 (one) time each day 90 tablet 3 04/02/2024 Active Active Problems Problem Noted Date Diagnosed Date Hydronephrosis 02/15/2024 Nephrolithiasis 02/15/2024 Microscopic hematuria 02/15/2024 Simple renal cyst 02/15/2024 Flank pain 02/15/2024 Social History Tobacco Use Types Packs/Day Years Used Date Smoking Tobacco: Never Assessed Sex and Gender Information Value Date Recorded Sex Assigned at Not on file Legal Sex Male 8:45 AM EDT Gender Identity Not on file Sexual Orientation Not on file Plan of Treatment Upcoming Encounters Date Type Department Care Team (Late st Contact Info) Description 08/07/2024 2:45 PM EDT Office Visit [facility] [place], [address] [place] [address] Kwadwo Jason MD [address] [place] [address] Health Maintenance Due Date Last Done Comments Pneumococcal Vaccine: 65+ Ye ars (1 of 2 - PCV) 1962 Colorectal Cancer Screening: Annual FOBT 2005 Colorectal Cancer Screening: Colonoscopy 2005 Colorectal Cancer Screening: Sigmoidoscopy 2005 Influenza Vaccine (#1) 2024 Hepatitis B Vaccine Aged Out No longe r eligible based on patient's age to complete this topic Insurance MEDICARE [employer] Care Teams Manual Qa Tester Relationship Specialty Start Date End Date Ching Perez MD [facility] [facility] [address] [place] [address] [id number] [place] [address] PCP - General Internal Medicine 01/06/24
--- OUTSIDE RECORDS SUMMARY | 2024-07-10 09:55 | XMS_ITS | Patient Health Record ---
Author Organization [facility] Address [address] [place] [address] Care Team Providers Care Passport Application Examiner Name Role Phone Ching Perez MD Primary Care Provider Curt Juarez Jr Unavailable ALLERGIES Allergen (clinical drug ingredient) Drug/Non Drug Allergy documented on EMR Reaction Allergy Type Onset Date Status acetaminophen / oxycodone Percocet Unknown Drug Allergy Active amoxicillin Amoxicillin Unknown Drug Allergy Act gina REASON FOR REFERRAL No Information MEDICATIONS Medication SIG (Take, Route, Frequency, Duration) Notes Start Date End Date Status [place] 3 Active MiraLax (colon prep) 8.3 ounce ((238) grams mixed with Gatorade or Crystal Light orally begin at 5:00 p.m. the day before the procedure for 1 day 09/04/2020 Active Omeprazole 20 MG TAKE 1 CAPSULE BY [facility] EVERY MORNING 30 MINUTES BEFORE MORNING MEAL. for 30 Active Vitamin D3 Active IMMUNIZATIONS Vaccine Route Administration Date Status Comme nts Influenza Unknown 02/06/2017 Administered Influenza Unknown 01/08/2020 Administered SOCIAL HISTORY Tobacco Use: Social History Observation Description Date Details (start date - stop date) Former Smoker NA - NA Sex Assigned At : Social History Observation Description Sex Assigned At Unknown Tobacco Use/Smoking Question Answer Notes Patient is a former smoker When did you stop smoking? 30 years ago How long has it been since you last smoked? > 10 years Alcohol Screen Question Answer Notes Did you have a drink contain ing alcohol in the past year? Yes How often did you have a dri nk containing alcohol in the past year? 2 to 3 times a week (3 points) How many drinks did you have on a typical day when you were drinking in the past year? 1 or 2 drinks (0 point) Points 3 Interpretation Negative PROBLEMS Problem Type ICD Code Onset Dates Problem Status W/U Status Risk SNOMED Code Notes Problem Colon cancer screening (Z12.11) Active confirmed 410066842 Problem Encounter for other preprocedural examination (Z01.818) Active confirmed 14087763 Problem Gastroesophageal reflux disease without esophagitis (K21.9) Active confirmed 988254790 Problem Screening for colon cancer (Z12.11) Active confirmed 200870458 Problem GERD (gastroesophageal reflux disease) (K21.9) Active confirmed Gastroesophagea l reflux disease (704944630) PLAN OF TREATMENT Future Test Test Name Order Date Colonoscopy 05/26/2017 UPPER GI ENDOSCOPY 09/04/2020 COLONOSCOPY 09/04/2020 Insurance Providers Payer Name Payer Address Payer Phone Subscriber Number Group Number Insured Name Patient Relationship to Insured Coverage Start Date Coverage End Date [facility] [address] [place] [address] [id number] LAUREN MARK Self - patient is the insured MEDICAL (GENERAL) HISTORY Medical History History ICD Code osteoarthritis elevated cholesterol gastroesophageal reflux disease colonoscopy 09/18/17, tubular adenomas x3 , three-year followup 09/26 Surgical History Surgery Date(Month/Year) left knee arthroscopy, subsequent TKR tonsillectomy right knee total knee replacement
--- OUTSIDE RECORDS SUMMARY | 2024-07-10 09:55 | XMS_ITS | Encounter Summary ---
Author Organization [facility] Address [address] [place] [address] Phone Care Team Providers Care Financial Assistance Specialist Name Role Phone Ching Perez MD Primary Care Provider [phone] Encounter Details Date Type Department Care Team (Late st Contact Info) Description 01/11/2024 Documentation Only [facility] [address] [place] [address] Amber Stover [facility] [place] [address] Social History Tobacco Use Types [...] Visit [facility] [address] [place] [address] Kwadwo Jason MD [address] [place] [address] [place] [address] documented as of this encounter Visit Diagnoses Not on filedocumented in this encounter Care Teams Financial Assistance Specialist Relationship Specialty Start Date End Date Ching Perez MD [id number] [place] [address] PCP - General Internal Medicine 01/06/24 documented as of this encounter
== END 2024-07-10 09:38 | disposition home or self-care (01) ==
PROVIDERS: PCP Internal Medicine; Visit Provider Physician Assistant
DX: H53.9 Unspecified visual disturbance (principal)

== ENCOUNTER → 2024-07-10 09:00 | Outpatient (BNVA) | payer MEDICARE, OTHER, SELFPAY | PROVIDERS: PCP Internal Medicine; Visit Provider Physician Assistant | DX: H53.9 Unspecified visual disturbance (principal) | CPT/HCPCS: 99212 ==

== ENCOUNTER 2024-07-13 08:52 | Outpatient (REF) | payer MEDICARE, OTHER, SELFPAY ==
--- OUTSIDE RECORDS SUMMARY | 2024-07-13 09:28 | XMS_ITS | Encounter Summary ---
Author Organization [facility] Address [address] [place] [address] Phone Care Team Providers Care Chief Mechanical Officer Name Role Phone Ching Perez MD Primary Care Provider [phone] Encounter Details Date Type Department Care Team (Late st Contact Info) Description 01/12/2024 Documentation Only [facility] [address] [place] [address] Amber Stover [facility] [place] [address] Social History Tobacco Use Types [...] Visit [facility] [address] [place] [address] Kwadwo Jason MD [address] [place] [address] [place] [phone] documented as of this encounter Visit Diagnoses Not on filedocumented in this encounter Care Teams Chief Mechanical Officer Relationship Specialty Start Date End Date Ching Perez MD [id number] [place] [address] PCP - General Internal Medicine 01/06/24 documented as of this encounter
--- OUTSIDE RECORDS SUMMARY | 2024-07-13 09:28 | XMS_ITS ---
Author Organization [facility] Address [address] [address] Care Team Providers Care Sports Marketing Coordinator Name Role Phone Ching Perez Primary Care Provider UnavailJAMEE Dia Unavailable [phone] REASON FOR VISIT 2 wk post-op Encounters Encounter Location Date Provider Diagnosis [facility] [address] [address] 06/13/2024 JAMEE CASTANEDA Plan Of Treatment No Information Progress Notes * JAS FinaanjuroDOB:1955 (68 yo M)Acc No.[id number]:06/13/2024 post-op Patient:?Lisseth STOVER Provider:?Jamee Andres DPM :1955???Age:68 Y???Sex:Male Chandrakant e:06/13/2024 Phone: Address:[address] [id number] Pcp:Ching Perez Subjective: * Chief Complaints: Objective: * Vitals:? Assessment: Plan: * Treatment: * Billing Information: * Electronic signature of BLAINE CASTANEDA D.P.M. on 07/13/2024 at 09:27 AM EST Sign off status: Pending * Provider:?Jamee Andres DPM Date:?06/13 Generated for Adal keith/Alvraez/Cary on:?07/13/2024 09:27 AM EST
--- OUTSIDE RECORDS SUMMARY | 2024-07-13 09:28 | XMS_ITS | Patient Health Record ---
Author Organization [facility] Address [address] [place] [address] Care Team Providers Care Wood Mechanist Name Role Phone Ching Perez MD Primary Care Provider Curt Juarez Jr Unavailable Allergies Allergen (clinical drug ingredient) Drug/Non Drug Allergy documented on EMR Reaction Allergy Type Onset Date Status acetaminophen / oxycodone Percocet Unknown Drug Allergy Active amoxicillin Amoxicillin Unknown Drug Allergy Act gina Reason For Referral No Information Medications Medication SIG (Take, Route, Frequency, Duration) Notes Start Date End Date Status [place] 3 Active MiraLax (colon prep) 8.3 ounce ((238) grams mixed with Gatorade or Crystal Light orally begin at 5:00 p.m. the day before the procedure for 1 day 09/04/2020 Active Omeprazole 20 MG TAKE 1 CAPSULE BY [facility] EVERY MORNING 30 MINUTES BEFORE MORNING MEAL. for 30 Active Vitamin D3 Active Immunizations Vaccine Route Administration Date Status Comme nts Influenza Unknown 02/06/2017 Administered Influenza Unknown 01/08/2020 Administered Social History Tobacco Use: Social History Observation Description Date Details (start date - stop date) Former Smoker NA - NA Tobacco Use/Smoking Question Answer Notes Patient is [...] drinks (0 point) Points 3 Interpretation Negative Problems Problem Type SNOMED Code ICD Code Onset Dates Problem Status W/U Status Risk Notes Problem 554821959 Colon cancer screening (Z12.11) Active confirmed Problem 21328793 Encounter for other preprocedural examination (Z01.818) Active confirmed Problem 968868873 Gastroesophageal reflux disease without esophagitis (K21.9) Active confirmed Problem 330011748 Screening for colon cancer (Z12.11) Active confirmed Problem Gastroesophageal reflux disease (806910381) GERD (gastroesophageal reflux disease) (K21.9) Active confirmed Plan Of Treatment Future Test Test Name Order Date Colonoscopy 05/26/2017 UPPER GI ENDOSCOPY 09/04/2020 COLONOSCOPY 09/04/2020 Insurance Providers Payer Name Payer Address Payer Phone Subscriber Number Group Number Insured Name Patient Relationship to Insured Coverage Start Date Coverage End Date [employer] [address] [place] [address] [id number] LAUREN MARK Self - patient is the insured Medical (General) History Medical History History ICD Code osteoarthritis elevated cholesterol gastroesophageal reflux disease colonoscopy 09/18/17, tubular adenomas x3 , three-year followup 09/26 Surgical History Surgery Date(Month/Year) left knee arthroscopy, subsequent TKR tonsillectomy right knee total knee replacement
--- OUTSIDE RECORDS SUMMARY | 2024-07-13 09:28 | XMS_ITS ---
Author Organization [facility] Address [address] [address] Care Team Providers Care Winder Contort Operator Name Role Phone Ching Perez Primary Care Provider UnavailJAMEE Dia Unavailable [phone] REASON FOR VISIT 6 wk post-op Encounters Encounter Location Date Provider Diagnosis [facility] [address] [address] 07/11/2024 JAMEE CASTANEDA Plan Of Treatment No Information Progress Notes * JAS FinaanjuroDOB:1955 (68 yo M)Acc No.[id number]:07/11/2024 post-op Patient:?Lisseth STOVER Provider:?Jamee Andres DPM :1955???Age:68 Y???Sex:Male Chandrakant e:07/11/2024 Phone: Address:[address] [id number] Pcp:Ching Perez Subjective: * Chief Complaints: Objective: * Vitals:? Assessment: Plan: * Treatment: * Billing Information: * Electronic signature of BLAINE CASTANEDA D.P.M. on 07/13/2024 at 09:27 AM EST Sign off status: Pending * Provider:?Jamee Andres DPM Date:?07/11 Generated for Adal keith/Alvarez/Cary on:?07/13/2024 09:27 AM EST
--- OUTSIDE RECORDS SUMMARY | 2024-07-13 09:28 | XMS_ITS | Clinical Summary ---
Author Organization [facility] Address [address] [place] [address] Phone Care Team Providers Care Wraparound Facilitator Name Role Phone Ching Perez MD Primary Care Provider [phone] Allergies No known active allergies Medications Cholecalciferol [...] Visit [facility] [place], [address] [place] [address] Kwadwo Jason MD [address] [place] [address] Health Maintenance Due Date Last Done Comments Pneumococcal Vaccine: 65+ Ye ars (1 of 2 - PCV) 1962 Colorectal Cancer Screening: Annual FOBT 2005 Colorectal Cancer Screening: Colonoscopy 2005 Colorectal Cancer Screening: Sigmoidoscopy 2005 Influenza Vaccine (#1) 2024 Hepatitis B Vaccine Aged Out No longe r eligible based on patient's age to complete this topic Insurance MEDICARE [facility] Care Teams Wraparound Facilitator Relationship Specialty Start Date End Date Ching Perez MD [facility] [address] [place] [address] [id number] [place] [address] PCP - General Internal Medicine 01/06/24
--- OUTSIDE RECORDS SUMMARY | 2024-07-13 09:28 | XMS_ITS | Encounter Summary ---
Author Organization [facility] Address [address] [place] [address] Phone Care Team Providers Care Rag Sorter And Cutter Name Role Phone Ching Preez MD Primary Care Provider [phone] Encounter Details Date Type Department Care Team (Late st Contact Info) Description 01/11/2024 Documentation Only [facility] [address] [place] [address] Amber Stover [facility] [place] [address] Social History Tobacco Use Types [...] Visit [facility] [address] [place] [address] Kwadwo Jason MD [address] [place] [address] [place] [phone] documented as of this encounter Visit Diagnoses Not on filedocumented in this encounter Care Teams Rag Sorter And Cutter Relationship Specialty Start Date End Date Ching Perez MD [id number] [place] [address] PCP - General Internal Medicine 01/06/24 documented as of this encounter
--- OUTSIDE RECORDS SUMMARY | 2024-07-13 09:28 | XMS_ITS | Patient Health Record ---
Author Organization [facility] Address [address] [facility] [address] [place] [address] Care Team Providers Care Drum Tender Name Role Phone Natalya Perezanna Primary Care Provider BRIGITTE Bowles Unavailable [phone] Allergies Allergen (clinical drug ingredient) Drug/Non Drug Allergy documented on EMR Reaction Allergy Type Onset Date Status amoxicillin Amoxicillin nausea and vomiting Drug Allergy Active oxycodone Oxycodone nausea and vomiting Drug Allergy Active Results Component Value Reference Range Notes ADDY by IFA Rfx Titer/Pattern -[id number] Reviewed date:01/10/2024 11:05:39 AM Interpretation: Performing Lab:[facility] [place], [address] [place] [address], Phone - [phone], Director - Ale Notes/Report: ADDY by IFA Rfx Titer/Pattern Negative Negative <1:80 Borderline 1:80 Positive >1:80 ICAP nomenclature: AC-0 For more information about Hep-2 cell patterns use ANApatterns.org, the official website for the International Consensus on Antinuclear Antibody (ADDY) Patterns (ICAP). Anti-CCP Ab, IgG/IgA-906517 Reviewed date:01/10/2024 11:05:39 AM Interpretation: Performing Lab:[facility], [place] [facility], Phone - [phone], Director - Sanjivdry Notes/Report: Anti-CCP Ab, IgG/IgA 6 0-19 units Negative <20 Weak positive 20 - 39 Moderate positive 40 - 59 Strong positive >59 C-Reactive Protein, Quant-00 6627 Reviewed date:01/10/2024 11:05:39 AM Interpretation: Performing Lab:[facility] [place], [address] [facility], Phone - [phone], Director - Ale Notes/Report: C-Reactive Protein, Quant 3 0-10 mg/L Rheumatoid Factor (RF)-29857 2 Reviewed date:01/10/2024 11:05:39 AM Interpretation: Performing Lab:[facility] [place], [place] [facility], Phone - [phone], Director - Ale Notes/Report: Rheumatoid Factor (RF) <10.0 <14.0 IU/mL Sedimentation Rate-Westergre n-466684 Reviewed date:01/10/2024 11:05:39 AM Interpretation: Performing Lab:[facility], [place] [facility], [place], Phone - [phone], Director - Ale Notes/Report: Sedimentation Rate-Westergren 2 0-30 mm/hr Reason For Referral No Information Medications Medication SIG (Take, Route, Frequency, Duration) Notes Start Date End Date Status Grulla 3 1000 MG 1 capsule Orally Thr ee times a day Active Atenolol 25 MG 1 tablet Orally Once a day Active Vitamin D3 50 MCG (1999) 1 capsule Orally Once a day Active Magnesium Citrate 100 MG as directed Orally Active Problems Problem Type SNOMED Code ICD Code Onset Dates Problem Status W/U Status Risk Notes Problem 77356118 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 Problem 22288330 Acquired hallux valgus of left foot (M20.12) Active confirmed Problem 6905268 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 Problem 705105914956992 Acquired hallux valgus of right foot (M20.11) Active confirmed Vital Signs Height 5ft5in in 01/06/2024 Weight 195.3 lbs 01/06/2024 BMI 32.5 kg/m2 01/06/2024 Encounters Encounter Location Date Provider Diagnosis [facility] [address] 01/06/2024 BRIGITTE CASTANEDA Acquired hallux valg us of left foot M20.12 ; Deformity of toe of left foot M20.62 ; Inflammatory arthropathy M19.90 ; Acquired hallux valgus of right foot M20.11 and Metatarsus adductus Q66.229 [facility] [address] [address] 12/12/2023 BRIGITTE CASTANEDA [facility] [address] [address] 01/10/2024 BRIGITTE CASTANEDA [facility] [address] [address] 03/12/2024 BRIGITTE CASTANEDA Assessments Encounter Date Diagnosis [...] End Date Medicare of [place] [address] [place] [address] [id number] Lisseth Stover Self - patient is the insured [facility] [address] [place] [address] [phone] [id number] Lisseth Stover Self - patient is the [...]
--- OUTSIDE RECORDS SUMMARY | 2024-07-13 09:28 | XMS_ITS ---
Author Organization [facility] Address [address] [address] Care Team Providers Care Phlebotomy Instructor Name Role Phone Ching Perez Primary Care Provider UnavailJAMEE Dia Unavailable [phone] REASON FOR VISIT 1 wk post-op Encounters Encounter Location Date Provider Diagnosis [facility] [address] [address] 06/06/2024 JAMEE CASTANEDA Plan Of Treatment No Information Progress Notes * STOVERElijahroDOB:1955 (68 yo M)Acc No.[id number]:06/06/2024 post-op Patient:?Lisseth STOVER Provider:?Jamee Andres DPM :1955???Age:68 Y???Sex:Male Chandrakant e:06/06/2024 Phone: Address:[address] [id number] Pcp:Ching Perez Subjective: * Chief Complaints: Objective: * Vitals:? Assessment: Plan: * Treatment: * Billing Information: * Electronic signature of BLAINE CASTANEDA D.P.M. on 07/13/2024 at 09:28 AM EST Sign off status: Pending * Provider:?Jamee Andres DPM Date:?06/06 Generated for Adal keith/Alvarez/Bobitting on:?07/13/2024 09:28 AM EST
[2024-07-13 10:35] LABS: Alanine Aminotransferase 23 U/L (0-40); Albumin Level 4.1 g/dL (3.5-5.0); Alkaline Phosphatase 57 U/L (39-117); Anion Gap 10 (12-20); Aspartate Amino Transferase 21 U/L (5-37); Bilirubin Total 0.6 mg/dL (0.0-1.0); Blood Urea Nitrogen 39 mg/dL (9-16); Carbon Dioxide 23 mmol/L (22-29); Chloride 112 mmol/L (96-108); Cholesterol 168 mg/dL (<200); Estimated Glomerular Filt Rate 32; Glucose Fasting 93 mg/dL (60-99); HDL Cholesterol 46 mg/dL (>40); LDL Cholesterol Calculated 105 mg/dL (<100); Potassium 4.7 mmol/L (3.3-5.1); Sodium 140 mmol/L (135-145); Triglycerides 88 mg/dL (<150)
== END 2024-07-13 08:53 | disposition home or self-care (01) ==
LOC: HO.HMGCLDS 08:52
PROVIDERS: PCP Internal Medicine; Visit Provider Internal Medicine
DX: N18.30 Chronic kidney disease, stage 3 unspecified (principal); I10 Essential (primary) hypertension; E78.5 Hyperlipidemia, unspecified
CPT/HCPCS: 36415; 80053; 80061

== ENCOUNTER 2024-07-20 10:35 | Outpatient (AMB) | payer MEDICARE, OTHER, SELFPAY ==
[2024-07-20 10:37] VITALS: BP 118/70; PULSE 59; RESP 18; TEMP 36.7; O2SAT 95; BMI 32.3
--- NOTE | 2024-07-20 10:37 | A.OFFPC_ITS ---
Vital Signs 07/20/24 10:37 Height 5 ft 5 in Weight 194 lb BMI 32.3 BP 118/70 Blood Pressure Location Lt brachial Position Sitting Respiration 18 Pulse 59 Pulse Source Pulse Oximeter Temp 98.0 F Temp Source Oral Pulse Oximetry (%) 95 Oxygen Delivery Method Room Air Intake Visit Reasons: 3 months f/up Intake Note: Pt is here today for 3 months follow up visit. Allergies amoxicillin Allergy (Unknown, Verified 07/20/24 10:37) Nausea and Vomiting oxycodone [Percocet] Allergy (Unknown, Verified 07/20/24 10:37) nausea and vomiting Medication List - Last Reconciled 07/20/24 by Ching Perez MD amlodipine 10 mg PO DAILY atenolol 25 mg PO DAILY cholecalciferol (vitamin D3) 50 mcg PO BEDTIME lisinopril 10 mg PO DAILY magnesium citrate 100 mg PO DAILY omega-3 fatty acids 1,000 mg PO DAILY Tobacco use date assessed: 07/20/24 Fall risk assessment: No Falls in past year Last assessed Fall Risk: 07/20/24 Dental Screening Dental Screen Date: 07/20/24 Did you have a dental visit in the last 12 months?: Yes Did you have a dental problem in the last 6 months where you did not have access to dental care?: No Was dental information given to patient?: Patient has dentist HPI 3 months f/up HPI Details Patient presents for the follow-up on hypertension and chronic kidney disease stable on current medications. [facility] Medical History (Updated 07/20/24 @ 15:37 by Ching Perez MD) COVID-19 vaccine series completed Tendinitis of elbow Hyperlipidemia Spondylosis of lumbosacral region Benign paroxysmal positional vertigo GERD (gastroesophageal reflux disease) Surgical History H/O colonoscopy History of bilateral knee replacement History of tonsillectomy History of thumb surgery H/O left knee surgery Family History Father Healthy male adult Mother HTN (hypertension) Breast cancer Skin cancer Thyroid disorder Daughter Allergies Son No problems noted. Son No problems noted. Sister No problems noted. Sister No problems noted. Brother No problems noted. Brother No problems noted. 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 1. Little interest or pleasure in doing things: not at all 2. Feeling down, depressed, or hopeless: not at all 3. Trouble falling or staying asleep, or sleeping too much: not at all 4. Feeling tired or having little energy: not at all 5. Poor appetite or overeating: not at all 6. Feeling bad about yourself - or that you are a failure or have let yourself or your family down: not at all 7. Trouble concentrating on things, such as reading the newspaper or watching television: not at all 8. Moving or speaking so slowly that other people could have noticed. Or the opposite - being so fidgety or restless that you have been moving around a lot more than usual: not at all 9. Thoughts that you would be better off or of hurting yourself in some way: not at all Total score: 0 Depression Screening Interpretation: Negative Depression Screening Done: Yes 03812 - PHQ-9 Billing: Yes Source: Developed by Drs. Hong Weiss, Marianne Herrera, Surinder Trujillo and colleagues, with an educational leslie from [employer]. Thrive Questionnaire Date Thrive assessed: 07/20/24 I am a: Patient What is your living situation today?: I have a steady place to live Within the past 12 months, did the food you bought not last and you didn't have the money to get more?: Never true Within the past 12 months, did you worry whether your food would run out before you got money to buy more?: Never true Do you have trouble paying for medicines?: No Do you have trouble getting transportation to medical appointments?: No Do you have trouble paying your heating and electricity bill?: No Do you have trouble taking care of your child, family member or friend?: No Do you have trouble with day-to-day activities such as bathing, preparing meals, shopping, managing finances, etc.?: No Are you currently unemployed and looking for a job?: No Are you interested in more education?: No Please select the resources that you would like help with: None Currently or been in a relationship where the following occur: No concerns reported THRIVE Score: 0 AUDIT C Alcohol Use Questionnaire (AUDIT-C) 1. How often do you have a drink containing alcohol?: Never Total Score: 0 ZINA-7 AMB Questionnaire ZINA-7 Date ZINA - 7 assessed: 07/20/24 Feeling nervous, anxious, or on edge: 0 = Not at all Not being able to stop or control worryin = Not at all Worrying too much about different things: 0 = Not at all Trouble relaxin = Not at all Being so restless that it is hard to sit still: 0 = Not at all Becoming easily annoyed or irritable: 0 = Not at all Feeling afraid as if something awful might happen: 0 = Not at all Total ZINA-7 score (0-4 normal; 5-9 mild; 10-14 moderate; 15-21 severe): 0 Source: Developed by Drs. Hong Weiss, Marianne Herrera, Surinder Trujillo and colleagues, with an educational leslie from [employer]. ZINA-7 Assessment Billing ZINA-7 Assessment Tool: ZINA-7 Assessment 24542 Review of Systems Const All systems reviewed & are unremarkable except as noted in HPI and below Eyes Reports no additional complaints ENT Reports no additional complaints Card Reports no additional complaints Resp Reports no additional complaints GI Reports no additional complaints Reports no additional complaints Physical exam (Primary Care) Vital Signs: Last Vital Signs Temp 98.0 F 07/20/24 10:37 Pulse 59 07/20/24 10:37 Resp 18 07/20/24 10:37 BP 118/70 07/20/24 10:37 Pulse Ox 95 07/20/24 10:37 Oxygen Delivery Method Room Air 07/20/24 10:37 BMI result Body Mass Index 32.3 Tobacco/Smoking Status: Tobacco use Status Tobacco use date assessed 07/20/24 07/20/24 10:38 Patient Tobacco Use Status Former Tobacco user 07/20/24 10:37 Tobacco use type Cigarette 07/20/24 10:37 e-Cigarette/Vaping Use Never Used 07/20/24 10:37 PHQ-9: PHQ-9 Score PHQ-9: Total score 0 07/20/24 10:38 Depression Screening Interpretation: Negative Thrive Assessment: Date of Thrive Assessment Date Thrive assessed 07/20/24 07/20/24 10:38 Currently or been in a relationship where the following occur: No concerns reported Const General: no acute distress HENMT Head: Yes normal to inspection Face and sinus: Yes normal facial exam Throat: Yes posterior oropharynx normal Eyes General: appearance normal, both eyes and all related structures Neck Neck: Yes supple Resp Effort & Inspection: normal respiratory effort Auscultation: clear to auscultation bilaterally Cardio Rhythm: regular rhythm Heart sounds: S1 normal heart sound present and S2 normal heart sound present GI Inspection: Yes normal to inspection Palpation (GI): Soft to palpation Percussion: Yes normal to percussion Auscultation: normal bowel sounds Coding Level of Care Code Est Pt Level 4 (36481) Diagnoses Hypertension, essential I10 CKD (chronic kidney disease) stage 3, GFR 30-59 ml/min N18.30 Hyperlipidemia E78.5 Hydronephrosis of left kidney N13.30 Additional Codes ZINA-7 Assessment Billing - ZINA-7 Assessment Tool: ZINA-7 Assessment 78545 ([id number]) PHQ-9 - 93597 - PHQ-9 Billing: Yes ([id number]) Assessment & Plan Assessment & Plan (1) Hypertension, essential: Code(s): I10 - Essential (primary) hypertension Category: Medical Plan: WELL-CONTROLLED ON CURRENT MEDICATIONS (2) CKD (chronic kidney disease) stage 3, GFR 30-59 ml/min: Comment: Secondary to left hydronephrosis, declining of the left kidney function, referred to nephrology 12/2023 Code(s): N18.30 - Chronic kidney disease, stage 3 unspecified Category: Medical Plan: Follow-up with nephrology (3) Hyperlipidemia: Code(s): E78.5 - Hyperlipidemia, unspecified Category: Medical Plan: Patient will return for fasting labs including lipid profile (4) Hydronephrosis of left kidney: Comment: f/u PVU, LEFT RENAL CYST, GETTING RENAL ULTRASOUND EVERY 6 MONTHS Code(s): N13.30 - Unspecified hydronephrosis Category: Medical Plan: Follow-up with urology Orders: Orders Complete Blood Count Auto Diff 6 Months E78.5 - Hyperlipidemia, unspecified, I10 - Essential (primary) hypertension, N18.30 - Chronic kidney disease, stage 3 unspecified PSA,Total (Free>4and<10) 6 Months E78.5 - Hyperlipidemia, unspecified, I10 - Essential (primary) hypertension, N18.30 - Chronic kidney disease, stage 3 unspecified UA w Microscopic 6 Months E78.5 - Hyperlipidemia, unspecified, I10 - Essential (primary) hypertension, N18.30 - Chronic kidney disease, stage 3 unspecified Comprehensive [place]. Panel Fast 6 Months E78.5 - Hyperlipidemia, unspecified, I10 - Essential (primary) hypertension, N18.30 - Chronic kidney disease, stage 3 unspecified Lipid Panel 6 Months E78.5 - Hyperlipidemia, unspecified, I10 - Essential (primary) hypertension, N18.30 - Chronic kidney disease, stage 3 unspecified
--- OUTSIDE RECORDS SUMMARY | 2024-07-20 12:07 | XMS_ITS | Encounter Summary ---
Author Organization [facility] Address [address] [place] [address] Phone Care Team Providers Care Hiv Cts Specialist Name Role Phone Ching Perez MD Primary Care Provider Encounter Details Date Type Department Care Team (Late st Contact Info) Description 01/11/2024 Documentation Only [facility] [address] [place] [address] Amber Stover [facility] [place] [place] [address] Social History Tobacco Use Types [...] [facility] [address] [place] [address] Kwadwo Jason MD [address] [place] [address] [place] [phone] documented as of this encounter Visit Diagnoses Not on filedocumented in this encounter Care Teams Hiv Cts Specialist Relationship Specialty Start Date End Date Ching Perez MD [id number] [place] [address] PCP - General Internal Medicine 01/06/24 documented as of this encounter
--- OUTSIDE RECORDS SUMMARY | 2024-07-20 12:07 | XMS_ITS | Patient Health Record ---
Author Organization [facility] Address [address] [facility] [address] [place] [address] Care Team Providers Care Manufacturing Engineer Chief Name Role Phone Natalya Preezanna Primary Care Provider BRIGITTE Bowles Unavailable [phone] Allergies Allergen (clinical drug ingredient) Drug/Non Drug Allergy documented on EMR Reaction Allergy Type Onset Date Status amoxicillin Amoxicillin nausea and vomiting Drug Allergy Active oxycodone Oxycodone nausea and vomiting Drug Allergy Active Results Component Value Reference Range Notes ADDY by IFA Rfx Titer/Pattern -661508 Reviewed date:01/10/2024 11:05:39 AM Interpretation: Performing Lab:[facility] [place], [address] [place] [address], Phone - [phone], Director - Ale Notes/Report: ADDY by IFA Rfx Titer/Pattern Negative Negative <1:80 Borderline 1:80 Positive >1:80 ICAP nomenclature: AC-0 For more information about Hep-2 cell patterns use ANApatterns.org, the official website for the International Consensus on Antinuclear Antibody (ADDY) Patterns (ICAP). Anti-CCP Ab, IgG/IgA-275825 Reviewed date:01/10/2024 11:05:39 AM Interpretation: Performing Lab:[facility], [facility], Phone - [phone], Director - Sanjivdry Notes/Report: Anti-CCP Ab, IgG/IgA 6 0-19 units Negative <20 Weak positive 20 - 39 Moderate positive 40 - 59 Strong positive >59 C-Reactive Protein, Quant-00 6627 Reviewed date:01/10/2024 11:05:39 AM Interpretation: Performing Lab:[facility] [place], [address] [facility], Phone - [phone], Director - Ale Notes/Report: C-Reactive Protein, Quant 3 0-10 mg/L Rheumatoid Factor (RF)-55004 2 Reviewed date:01/10/2024 11:05:39 AM Interpretation: Performing Lab:[facility] [place], [place] [facility], Phone - [phone], Director - Ale Notes/Report: Rheumatoid Factor (RF) <10.0 <14.0 IU/mL Sedimentation Rate-Westergre n-791563 Reviewed date:01/10/2024 11:05:39 AM Interpretation: Performing Lab:[facility] [place], [place] [facility], [place], Phone - [phone], Director - Ale Notes/Report: Sedimentation Rate-[place]gren 2 0-30 mm/hr Reason For Referral No Information Medications Medication SIG (Take, Route, Frequency, Duration) Notes Start Date End Date Status Hawkins 3 1000 MG 1 capsule Orally Thr ee times a day Active Atenolol 25 MG 1 tablet Orally Once a day Active Vitamin D3 50 MCG (1999) 1 capsule Orally Once a day Active Magnesium Citrate 100 MG as directed Orally Active Problems Problem Type SNOMED Code ICD Code Onset Dates Problem Status W/U Status Risk Notes Problem 85208238 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 Problem 64669784 Acquired hallux valgus of left foot (M20.12) Active confirmed Problem 8905667 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 Problem 846878981412849 Acquired hallux valgus of right foot (M20.11) Active confirmed Vital Signs Height 5ft5in in 01/06/2024 Weight 195.3 lbs 01/06/2024 BMI 32.5 kg/m2 01/06/2024 Encounters Encounter Location Date Provider Diagnosis [facility] [address] 01/06/2024 BRIGITTE CASTANEDA Acquired hallux valg us of left foot M20.12 ; Deformity of toe of left foot M20.62 ; Inflammatory arthropathy M19.90 ; Acquired hallux valgus of right foot M20.11 and Metatarsus adductus Q66.229 [facility] [address] [address] 12/12/2023 BRIGITTE CASTANEDA [facility] [address] [address] 01/10/2024 BRIGITTE CASTANEDA [facility] [address] [address] 03/12/2024 BRIGITTE CASTANEDA Assessments Encounter Date Diagnosis [...] End Date Medicare of [place] [address] [place] [address] [id number] Lisseth Stover Self - patient is the insured [facility] [address] [place] [address] [phone] [id number] Lisseth Stover Self - patient is the [...]
--- OUTSIDE RECORDS SUMMARY | 2024-07-20 12:07 | XMS_ITS | Encounter Summary ---
Author Organization [facility] Address [address] [place] [address] Phone Care Team Providers Care Commuter Train Operator Name Role Phone Ching Perez MD Primary Care Provider [phone] Encounter Details Date Type Department Care Team (Late st Contact Info) Description 01/12/2024 Documentation Only [facility] [address] [place] [address] Amber Stover [facility] [place] [address] Social History Tobacco Use Types [...] Visit [facility] [address] [place] [address] Kwadwo Jason MD [address] [place] [address] [place] [phone] documented as of this encounter Visit Diagnoses Not on filedocumented in this encounter Care Teams Commuter Train Operator Relationship Specialty Start Date End Date Ching Perez MD [address] [place] [address] PCP - General Internal Medicine 01/06/24 documented as of this encounter
--- OUTSIDE RECORDS SUMMARY | 2024-07-20 12:08 | XMS_ITS ---
Author Organization [facility] Address [address] [address] Care Team Providers Care Sheltered Workshop Executive Director Name Role Phone Ching Perez Primary Care Provider UnavailJAMEE Dai Unavailable [phone] REASON FOR VISIT 1 wk post-op Encounters Encounter Location Date Provider Diagnosis [facility] [address] [address] 06/06/2024 JAMEE CASTANEDA Plan Of Treatment No Information Progress Notes * STOVERFinaanjuroDOB:1955 (68 yo M)Acc No.[id number]:06/06/2024 post-op Patient:?Lisseth STOVER Provider:?Jamee Andres DPM :1955???Age:68 Y???Sex:Male Chandrakant e:06/06/2024 Phone: Address:[address] [phone] Pcp:Ching Perez Subjective: * Chief Complaints: Objective: * Vitals:? Assessment: Plan: * Treatment: * Billing Information: * Electronic signature of BLAINE CASTANEDA D.P.M. on 07/20/2024 at 12:08 PM EDT Sign off status: Pending * Provider:?Jamee Andres DPM Date:?06/06 Generated for Adal keith/Alvarez/eTransmitting on:?07/20/2024 12:08 PM EDT
--- OUTSIDE RECORDS SUMMARY | 2024-07-20 12:08 | XMS_ITS ---
Author Organization [facility] Address [address] [address] Care Team Providers Care Sales Agent Protective Service Name Role Phone Ching Perez Primary Care Provider UnavailJAMEE Dia Unavailable [phone] REASON FOR VISIT 6 wk post-op Encounters Encounter Location Date Provider Diagnosis [facility] [address] [address] 07/11/2024 JAMEE CASTANEDA Plan Of Treatment No Information Progress Notes * JAS FinaanjuroDOB:1955 (68 yo M)Acc No.[id number]:07/11/2024 post-op Patient:?Lisseth STOVER Provider:?Jamee Andres DPM :1955???Age:68 Y???Sex:Male Chandrakant e:07/11/2024 Phone: Address:[address] [phone] Pcp:Ching Perez Subjective: * Chief Complaints: Objective: * Vitals:? Assessment: Plan: * Treatment: * Billing Information: * Electronic signature of BLAINE CASTANEDA D.P.M. on 07/20/2024 at 12:07 PM EDT Sign off status: Pending * Provider:?Jamee Andres DPM Date:?07/11 Generated for Adal keith/Alvarez/eTceciliasmitting on:?07/20/2024 12:07 PM EDT
--- OUTSIDE RECORDS SUMMARY | 2024-07-20 12:08 | XMS_ITS ---
Author Organization [facility] Address [address] [address] Care Team Providers Care Tile Erector Name Role Phone Ching Perez Primary Care Provider UnavailJAMEE Dia Unavailable [phone] REASON FOR VISIT 2 wk post-op Encounters Encounter Location Date Provider Diagnosis [facility] [address] [address] 06/13/2024 JAMEE CASTANEDA Plan Of Treatment No Information Progress Notes * JAS FinaanjuroDOB:1955 (68 yo M)Acc No.[id number]:06/13/2024 post-op Patient:?Lisseth STOVER Provider:?Jamee Andres DPM :1955???Age:68 Y???Sex:Male Chandrakant e:06/13/2024 Phone: Address:[address] [phone] Pcp:Ching Perez Subjective: * Chief Complaints: Objective: * Vitals:? Assessment: Plan: * Treatment: * Billing Information: * Electronic signature of BLAINE CASTANEDA D.P.M. on 07/20/2024 at 12:07 PM EDT Sign off status: Pending * Provider:?Jamee Andres DPM Date:?06/13 Generated for Adal keith/Alvarez/eTceicliasmitting on:?07/20/2024 12:07 PM EDT
--- OUTSIDE RECORDS SUMMARY | 2024-07-20 12:08 | XMS_ITS | Clinical Summary ---
Author Organization [facility] Address [address] [place] [address] Phone Care Team Providers Care Nps Name Role Phone Ching Perez MD Primary Care Provider [phone] Allergies No known active allergies Medications Cholecalciferol [...] Visit [facility] [place], [address] [place] [address] Kwadwo Jason MD [address] [place] [address] Health Maintenance Due Date Last Done Comments Pneumococcal Vaccine: 65+ Ye ars (1 of 2 - PCV) 1962 Colorectal Cancer Screening: Annual FOBT 2005 Colorectal Cancer Screening: Colonoscopy 2005 Colorectal Cancer Screening: Sigmoidoscopy 2005 Influenza Vaccine (#1) 2024 Hepatitis B Vaccine Aged Out No longe r eligible based on patient's age to complete this topic Insurance MEDICARE [facility] Care Teams Nps Relationship Specialty Start Date End Date Ching Perez MD [facility] [address] [place] [address] [address] [place] [address] PCP - General Internal Medicine 01/06/24
--- OUTSIDE RECORDS SUMMARY | 2024-07-20 12:08 | XMS_ITS | Patient Health Record ---
Author Organization [facility] Address [address] [place] [address] Care Team Providers Care Head Bander And Liner Operator Name Role Phone Ching Perez MD [...] Duration) Notes Start Date End Date Status [place] 3 Active MiraLax (colon prep) 8.3 ounce ((238) grams mixed with Gatorade or Crystal Light orally begin at 5:00 p.m. the day before the procedure for 1 day 09/04/2020 Active Omeprazole 20 MG TAKE 1 CAPSULE BY [facility] EVERY MORNING 30 MINUTES BEFORE [...] Problem Status W/U Status Risk Notes Problem 889509297 Colon cancer screening (Z12.11) Active confirmed Problem 45959309 Encounter for other preprocedural examination (Z01.818) Active confirmed Problem 300577240 Gastroesophageal reflux disease without esophagitis (K21.9) Active confirmed Problem 572261736 Screening for colon cancer (Z12.11) Active confirmed Problem Gastroesophageal reflux disease (521273584) GERD (gastroesophageal reflux disease) (K21.9) Active confirmed Plan Of Treatment Future Test Test Name Order Date Colonoscopy 05/26/2017 UPPER GI ENDOSCOPY 09/04/2020 COLONOSCOPY 09/04/2020 Insurance Providers Payer Name Payer Address Payer Phone Subscriber Number Group Number Insured Name Patient Relationship to Insured Coverage Start Date Coverage End Date [facility] [address] [address] [place] [address] [id number] LAUREN MARK Self - patient is the insured Medical (General) History Medical History History ICD Code osteoarthritis elevated cholesterol gastroesophageal reflux disease colonoscopy 09/18/17, tubular adenomas x3 , three-year followup 09/26 Surgical History Surgery Date(Month/Year) left knee arthroscopy, subsequent TKR tonsillectomy right knee total knee replacement
== END 2024-07-20 12:16 | disposition home or self-care (01) ==
LOC: HO.HMCC 10:36
PROVIDERS: PCP Internal Medicine; Visit Provider Internal Medicine
DX: I10 Essential (primary) hypertension (principal); N18.30 Chronic kidney disease, stage 3 unspecified; E78.5 Hyperlipidemia, unspecified; N13.30 Unspecified hydronephrosis

== ENCOUNTER → 2024-07-20 10:35 | Outpatient (BNVA) | payer MEDICARE, OTHER, SELFPAY | PROVIDERS: PCP Internal Medicine; Visit Provider Internal Medicine | DX: E78.5 Hyperlipidemia, unspecified (principal); N13.30 Unspecified hydronephrosis; I12.9 Hypertensive chronic kidney disease with stage 1 through stage 4 chronic kidney disease, or unspecified chronic kidney disease; N18.30 Chronic kidney disease, stage 3 unspecified | CPT/HCPCS: 96127; 99212 ==

== ENCOUNTER 2025-01-22 11:36 | Outpatient (AMB) | payer MEDICARE, OTHER, SELFPAY ==
--- OUTSIDE RECORDS SUMMARY | 2024-05-23 09:30 | XMS_ITS ---
Author Organization [facility] Address [address] [address] Care Team Providers Care Flash Drier Operator Name Role Phone Ching Perez Primary Care Provider UnavailBRIGITTE Dia Unavailable [phone] REASON FOR VISIT surgical planning Encounters Encounter Location Date Provider Diagnosis [facility] [address] [address] 05/23/2024 BRIGITTE CASTANEDA Plan Of Treatment No Information Progress Notes * JASFinaanjuJitendraOB:1955 (69 yo M)Acc No.[id number]:05/23/2024 Progress Note Patient: Lisseth GARVEY Provider: Jovita Andres DPM :1955 A ge:68 Y S ex:Male Date:05/23/2024 Phone: Address:[address] [id number] Pcp:Ching Perez Subjective: * Chief Complaints: * 1 . Surgical planning. * Medical History: Objective: * Vitals: Assessment: Plan: * Treatment: * Billing Information: * Visit Code: * Procedure Codes: * Electronic signature of BLAINE CASTANEDA D.P.M. on 01/22/2025 at 03:50 PM EDT Sign off status: Pending * Provider: Jovita Andres DPM Date: 0 05/23/2024 Generated for Adal keith/Alvarez/eTransmitting on: 0 01/22/2025 03:50 PM EDT
--- OUTSIDE RECORDS SUMMARY | 2024-05-30 02:00 | XMS_ITS ---
Author Organization [facility] Address [address] [address] Care Team Providers Care Wax Engraver Name Role Phone Ching Perez Primary Care Provider BRIGITTE Bowles Unavailable [phone] REASON FOR VISIT Surgery starts at 730am... Left Hallux valgus , left metatarsus adductus and left 2nd to 5th hammertoes Encounters Encounter Location Date Provider Diagnosis [facility] [address] [address] 05/30/2024 BRIGITTE CASTANEDA Plan Of Treatment No Information Progress Notes * JASFinaanjuroDOB:1955 (69 yo M)Acc No.[id number]:05/30/2024 Patient: Lisseth GARVEY Provider: Jovita Andres DPM :1955 A ge:68 Y S ex:Male Date:05/30/2024 Phone: Address:[address], [place] Pcp:Ching Perez * Billing Information: * Visit Code: * Procedure Codes: * Electronic signature of BLAINE CASTANEDA D.P.M. on 01/22/2025 at 03:51 PM EDT Sign off status: Pending * Provider: Jovita Andres DPDaja Date: 0 05/30/2024 Generated for Adal keith/Alvarez/eTransmitting on: 0 01/22/2025 03:51 PM EDT
--- OUTSIDE RECORDS SUMMARY | 2024-06-06 09:30 | XMS_ITS ---
Author Organization [facility] Address [address] [address] Care Team Providers Care Trial Lawyer Name Role Phone Ching Perez Primary Care Provider UnavailBRIGITTE Dia Unavailable [phone] REASON FOR VISIT 1 wk post-op Encounters Encounter Location Date Provider Diagnosis [facility] [address] [address] 06/06/2024 BRIGITTE CASTANEDA Plan Of Treatment No Information Progress Notes * Felipa STOVEROB:1955 (69 yo M)Acc No.[id number]:06/06/2024 post-op Patient: Lisseth GARVEY Provider: Jovita Andres DPM :1955 A ge:68 Y S ex:Male Date:06/06/2024 Phone: Address:[address] [id number] Pcp:Ching Perez Subjective: * Chief Complaints: Objective: * Vitals: Assessment: Plan: * Treatment: * Billing Information: * Electronic signature of BLAINE CASTANEDA D.P.M. on 01/22/2025 at 03:50 PM EDT Sign off status: Pending * Provider: Jovita Andres DPM Date: 0 06/06/2024 Generated for Adal keith/Alvarez/eTransmitting on: 0 01/22/2025 03:50 PM EDT
--- OUTSIDE RECORDS SUMMARY | 2024-06-13 09:30 | XMS_ITS ---
Author Organization [facility] Address [address] [address] Care Team Providers Care Machine Former Name Role Phone Ching Perez Primary Care Provider UnavailBRIGITTE Dia Unavailable [phone] REASON FOR VISIT 2 wk post-op Encounters Encounter Location Date Provider Diagnosis [facility] [address] [address] 06/13/2024 BRIGITTE CASTANEDA Plan Of Treatment No Information Progress Notes * Felipa STOVEROB:1955 (69 yo M)Acc No.[id number]:06/13/2024 post-op Patient: Lisseth GARVEY Provider: Jovita Andres DPM :1955 A ge:68 Y S ex:Male Date:06/13/2024 Phone: Address:[address] [id number] Pcp:Ching Perez Subjective: * Chief Complaints: Objective: * Vitals: Assessment: Plan: * Treatment: * Billing Information: * Electronic signature of Rajni EDWARDSPLev on 01/22/2025 at 03:50 PM EDT Sign off status: Pending * Provider: Jovita Anders DPM Date: 0 06/13/2024 Generated for Adal keith/Alvarez/eTransmitting on: 0 01/22/2025 03:50 PM EDT
--- OUTSIDE RECORDS SUMMARY | 2024-07-11 09:30 | XMS_ITS ---
Author Organization [facility] Address [address] [address] Care Team Providers Care Personnel Officer Name Role Phone Ching Perez Primary Care Provider UnavailBRIGITTE Dia Unavailable [phone] REASON FOR VISIT 6 wk post-op Encounters Encounter Location Date Provider Diagnosis [facility] [address] [address] 07/11/2024 BRIGITTE CASTANEDA Plan Of Treatment No Information Progress Notes * Felipa STOVEROB:1955 (69 yo M)Acc No.[id number]:07/11/2024 post-op Patient: Lisseth GARVEY Provider: Jovita Andres DPM :1955 A ge:68 Y S ex:Male Date:07/11/2024 Phone: Address:[address] [id number] Pcp:Ching Perez Subjective: * Chief Complaints: Objective: * Vitals: Assessment: Plan: * Treatment: * Billing Information: * Electronic signature of Rajni EDWARDSPLev on 01/22/2025 at 03:50 PM EDT Sign off status: Pending * Provider: Jovita Andres DPM Date: 0 07/11/2024 Generated for Adal keith/Alvarez/eTransmitting on: 0 01/22/2025 03:50 PM EDT
[2025-01-22 11:49] VITALS: BP 110/70; PULSE 50; RESP 18; TEMP 36.6; O2SAT 96; BMI 32.3
--- NOTE | 2025-01-22 11:49 | A.OFFPC_ITS ---
Vital Signs 01/22/25 11:49 Height 5 ft 5 in Weight 194 lb BMI 32.3 BP 110/70 Blood Pressure Location Lt brachial Position Sitting Respiration 18 Pulse 50 Pulse Source Pulse Oximeter Temp 97.8 F Temp Source Oral Pulse Oximetry (%) 96 Oxygen Delivery Method Room Air Intake Visit Reasons: lump near his rectum Intake Note: Pt is here today for a sick visit. Pt c/o lump near his rectum. Allergies amoxicillin Allergy (Unknown, Verified 01/22/25 11:55) Nausea and Vomiting oxycodone (Percocet) Allergy (Unknown, Verified 01/22/25 11:55) nausea and vomiting Tobacco use date assessed: 01/22/25 Fall risk assessment: No Falls in past year Last assessed Fall Risk: 01/22/25 Dental Screening Dental Screen Date: 07/20/24 HPI lump near his rectum HPI Details Patient noticed a lump around his in the area. He denies any pain bleeding change in bowel habits constipation hematochezia melena PFSH Medical History COVID-19 vaccine series completed Tendinitis of elbow Hyperlipidemia Spondylosis of lumbosacral region Benign paroxysmal positional vertigo GERD (gastroesophageal reflux disease) Surgical History H/O colonoscopy History of bilateral knee replacement History of tonsillectomy History of thumb surgery H/O left knee surgery Family History Father Healthy male adult Mother HTN (hypertension) Breast cancer Skin cancer Thyroid disorder Daughter Allergies Son No problems noted. Son No problems noted. Sister No problems noted. Sister No problems noted. Brother No problems noted. Brother No problems noted. 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 1. Little interest or pleasure in doing things: not at all 2. Feeling down, depressed, or hopeless: not at all 3. Trouble falling or staying asleep, or sleeping too much: not at all 4. Feeling tired or having little energy: not at all 5. Poor appetite or overeating: not at all 6. Feeling bad about yourself - or that you are a failure or have let yourself or your family down: not at all 7. Trouble concentrating on things, such as reading the newspaper or watching television: not at all 8. Moving or speaking so slowly that other people could have noticed. Or the opposite - being so fidgety or restless that you have been moving around a lot more than usual: not at all 9. Thoughts that you would be better off or of hurting yourself in some way: not at all Total score: 0 Depression Screening Interpretation: Negative Depression Screening Done: Yes Source: Developed by Drs. Hong Weiss, Marianne Herrera, Suirnder Trujillo and colleagues, with an educational leslie from [employer]. Thrive Questionnaire Date Thrive assessed: 07/20/24 I am a: Patient What is your living situation today?: I have a steady place to live Within the past 12 months, did the food you bought not last and you didn't have the money to get more?: Never true Within the past 12 months, did you worry whether your food would run out before you got money to buy more?: Never true Do you have trouble paying for medicines?: No Do you have trouble getting transportation to medical appointments?: No Do you have trouble paying your heating and electricity bill?: No Do you have trouble taking care of your child, family member or friend?: No Do you have trouble with day-to-day activities such as bathing, preparing meals, shopping, managing finances, etc.?: No Are you currently unemployed and looking for a job?: No Are you interested in more education?: No Please select the resources that you would like help with: None Currently or been in a relationship where the following occur: No concerns reported THRIVE Score: 0 AUDIT C Alcohol Use Questionnaire (AUDIT-C) 2. How many drinks containing alcohol do you have on a typical day when you are drinking?: 1 or 2 3. How often do you have six or more drinks on one occasion?: Never Total Score: 0 ZINA-7 AMB Questionnaire ZINA-7 Date ZINA - 7 assessed: 07/20/24 Feeling nervous, anxious, or on edge: 0 = Not at all Not being able to stop or control worryin = Not at all Worrying too much about different things: 0 = Not at all Trouble relaxin = Not at all Being so restless that it is hard to sit still: 0 = Not at all Becoming easily annoyed or irritable: 0 = Not at all Feeling afraid as if something awful might happen: 0 = Not at all Total ZINA-7 score (0-4 normal; 5-9 mild; 10-14 moderate; 15-21 severe): 0 Source: Developed by Drs. Hong Weiss, Marianne Herrera, Surinder Trujillo and colleagues, with an educational leslie from [employer]. Review of Systems Const All systems reviewed & are unremarkable except as noted in HPI and below Eyes Reports no additional complaints ENT Reports no additional complaints Card Reports no additional complaints Resp Reports no additional complaints GI Reports no additional complaints Reports no additional complaints Physical exam (Primary Care) Vital Signs: Last Vital Signs Temp 97.8 F 01/22/25 11:49 Pulse 50 01/22/25 11:49 Resp 18 01/22/25 11:49 BP 110/70 01/22/25 11:49 Pulse Ox 96 01/22/25 11:49 Oxygen Delivery Method Room Air 01/22/25 11:49 BMI result Body Mass Index 32.3 Tobacco/Smoking Status: Tobacco use Status Tobacco use date assessed 01/22/25 01/22/25 11:56 Patient Tobacco Use Status Former Tobacco user 01/22/25 11:56 Tobacco use type Cigarette 01/22/25 11:56 e-Cigarette/Vaping Use Never Used 01/22/25 11:56 PHQ-9: PHQ-9 Score PHQ-9: Total score 0 01/22/25 12:07 Depression Screening Interpretation: Negative Thrive Assessment: Date of Thrive Assessment Date Thrive assessed 07/20/24 01/22/25 11:56 Currently or been in a relationship where the following occur: No concerns reported Const General: no acute distress Resp Effort & Inspection: normal respiratory effort Auscultation: clear to auscultation bilaterally Cardio Rhythm: regular rhythm Heart sounds: S1 normal heart sound present and S2 normal heart sound present GI Rectal Exam - Male: Yes normal sphincter tone and Yes External hemorrhoid(s) present (Small 1 external hemorrhoid no ulceration bleeding or tenderness) Coding Level of Care Code Est Pt Level 3 (71177) Diagnoses External hemorrhoid K64.4 Hypertension, essential I10 Assessment & Plan Assessment & Plan (1) External hemorrhoid: Code(s): K64.4 - Residual hemorrhoidal skin tags Category: Medical Plan: Supportive care discussed with the patient (2) Hypertension, essential: Code(s): I10 - Essential (primary) hypertension Category: Medical Plan: Continue current medications
--- OUTSIDE RECORDS SUMMARY | 2025-01-22 15:50 | XMS_ITS | Patient Health Record ---
Author Organization [facility] Address [address] [address] Care Team Providers Care Cyber Security Manager Name Role Phone Natalya Perezanna Primary Care Provider BRIGITTE Bowles Unavailable [phone] Allergies Allergen (clinical drug ingredient) Drug/Non Drug Allergy documented on EMR Reaction Allergy Type Onset Date Status amoxicillin Amoxicillin nausea and vomiting Drug Allergy Active oxycodone Oxycodone nausea and vomiting Drug Allergy Active Reason For Referral No Information Medications Medication SIG (Take, Route, Frequency, Duration) Notes Start Date End Date Status [place] 3 1000 MG 1 capsule Orally Thr ee times a day Active Atenolol 25 MG 1 tablet Orally Once a day Active Vitamin D3 50 MCG (1999 UT) 1 capsule Orally Once a day Active Magnesium Citrate 100 MG as directed Orally Active Problems Problem Type SNOMED Code ICD Code Onset Dates Problem Status W/U Status Risk Notes Problem 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 Problem Acquired hallux valgus (07184410) Acquired hallux valgus of left foot (M20.12) Active confirmed Problem Osteoarthritis (299820810) 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 Problem Acquired hallux valgus (35658795) Acquired hallux valgus of right foot (M20.11) Active confirmed Encounters Encounter Location Date Provider Diagnosis [facility] [address] [address] 03/12/2024 BRIGITTE CASTANEDA Plan Of Treatment No Information Insurance Providers Payer Name Payer Address Payer Phone Subscriber Number Group Number Insured Name Patient Relationship to Insured Coverage Start Date Coverage End Date Medicare of [place] [address] [phone] [id number] Lisseth Stover Self - patient is the insured [facility] [address] [place] [address] [id number] Lisseth Stover Self - patient is the [...]
--- OUTSIDE RECORDS SUMMARY | 2025-01-22 15:50 | XMS_ITS | Encounter Summary ---
Author Organization [facility] [place], Address [address] [place] [address] Phone Care Team Providers Care Cork Insulation Installer Name Role Phone Ching Perez MD Primary Care Provider [phone] Encounter Details Date Type Department Care Team (Late st Contact Info) Description 01/11/2024 Documentation Only [facility] [address] [place] [address] Amber Stover [address] [place] [phone] Social History Tobacco Use Types Packs/Day Years Used Date Smoking Tobacco: Never Assessed Sex and Gender Information Value Date Recorded Sex Assigned at Not on file Legal Sex Male 8:45 AM EDT Gender Identity Not on file Sexual Orientation Not on file documented as of this encounter Plan of Treatment Upcoming Encounters Date Type Department Care Team (Late st Contact Info) Description 02/12/2025 2:15 PM EDT Office Visit [facility] [address] [place] [address] Kwadwo Jason MD [address] [place] [address] [place] [address] documented as of this encounter Visit Diagnoses Not on filedocumented in this encounter Care Teams Cork Insulation Installer Relationship Specialty Start Date End Date Ching Perez MD [address] [place] [address] PCP - General Internal Medicine 01/06/24 documented as of this encounter
--- OUTSIDE RECORDS SUMMARY | 2025-01-22 15:50 | XMS_ITS | Clinical Summary ---
Author Organization [facility] Address [address] [place] [address] Phone Care Team Providers Care Ophthalmic Lens Inspector Name Role Phone Ching Perez MD Primary Care Provider [phone] Allergies Active Allergy Reactions Criticality Noted Date Comments Amoxicillin 08/29/2024 Oxycodone-Acetaminophen 08/29/2024 Medications Cholecalciferol (EQL Vitamin D3) 50 MCG (1999 UT) capsule Take by mouth Active lisinopril 10 MG tablet Take 1 tablet (10 mg total) by mouth 1 (one) time each day 90 tablet 3 04/02/2024 Active Active Problems Problem Noted Date Diagnosed Date Stage 3b chronic kidney disease 08/07/2024 Essential hypertension 08/07/2024 Hydronephrosis 02/15/2024 Nephrolithiasis 02/15/2024 Microscopic hematuria 02/15/2024 [...] Visit [facility] [place], [address] [place] [address] Kwadwo Jason MD [address] [place] [address] Health Maintenance Due Date Last Done Comments Pneumococcal Vaccine: 50+ Ye ars (1 of 2 - PCV) 11/01/1975 Colorectal Cancer Screening: Annual FOBT 2005 Colorectal Cancer Screening: Colonoscopy 2005 Colorectal Cancer Screening: Sigmoidoscopy 2005 Influenza Vaccine (#1) 2025 Hepatitis B Vaccine Aged Out No longe r eligible based on patient's age to complete this topic Insurance Medicare [facility] Care Teams Ophthalmic Lens Inspector Relationship Specialty Start Date End Date Ching Perez MD [address] [place] [address] PCP - General Internal Medicine 01/06/24
--- OUTSIDE RECORDS SUMMARY | 2025-01-22 15:50 | XMS_ITS | Encounter Summary ---
Author Organization [facility] [place], Address [address] [place] [address] Phone Care Team Providers Care Embedded Systems Developer Name Role Phone Ching Perez MD Primary Care Provider [phone] Encounter Details Date Type Department Care Team (Late st Contact Info) Description 07/30/2024 Documentation Only [facility] [address] [place] [address] Ariadna Lobo [address] [place] [phone] Social History Tobacco Use Types Packs/Day Years [...] Visit [facility] [address] [place] [address] Kwadwo Jason MD [address] [place] [address] [place] [phone] documented as of this encounter Visit Diagnoses Not on filedocumented in this encounter Care Teams Embedded Systems Developer Relationship Specialty Start Date End Date Ching Perez MD [address] [place] [address] PCP - General Internal Medicine 01/06/24 documented as of this encounter
--- OUTSIDE RECORDS SUMMARY | 2025-01-22 15:50 | XMS_ITS | Encounter Summary ---
Author Organization [facility] [place], Address [address] [place] [address] Phone Care Team Providers Care Choirmaster Name Role Phone Ching Perez MD Primary Care Provider [phone] Encounter Details Date Type Department Care Team (Late st Contact Info) Description 01/12/2024 Documentation Only [facility] [address] [place] [address] Amber Stover [address] [place] [phone] Social History Tobacco Use Types Packs/Day [...] Visit [facility] [address] [place] [address] Kwadwo Jason MD [address] [place] [address] [place] [address] documented as of this encounter Visit Diagnoses Not on filedocumented in this encounter Care Teams Choirmaster Relationship Specialty Start Date End Date Ching Perez MD [address] [place] [address] PCP - General Internal Medicine 01/06/24 documented as of this encounter
--- OUTSIDE RECORDS SUMMARY | 2025-01-22 15:51 | XMS_ITS | Clinical Summary ---
Author Organization [facility] Address [address] [place] [address] Phone Care Team Providers Care Operations/Dispatch Name Role Phone Ching Perez MD Primary Care Provider [phone] Social History Tobacco Use Types Packs/Day Years Used Date Smoking Tobacco: Never Assessed Education Answer Date Recorded Are you interested in more education? Not on raúl e 09/03/2022 Are you concerned about learning? Not on file 09/03/2022 No 09/03/2022 No 09/03/2022 Digital Access Answer Date Recorded No 10/02/2022 No 10/02/2022 No 10/02/2022 Reliable internet access at home? Not on file 10/02/2022 Device with a working camera? Not on file Sex and Gender Information Value Date Recorded Sex Assigned at Male 01/12/2023 9:26 AM EDT Legal Sex Male 9:51 AM EDT Gender Identity Male 01/12/2023 9:26 AM EDT Sexual Orientation Straight 01/12/2023 9: 26 AM EDT Plan of Treatment Health Maintenance Due Date Last Done Comments LIPID PANEL 1956 DEPRESSION SCREENING 1968 SMOKING Hx and SMOKELESS TOBACCO SCREENING 1969 HEPATITIS C SCREENING 1974 COLOGUARD 2001 COLONOSCOPY 2001 COLORECTAL CANCER SCREENING 2001 FIT TEST 2001 FOBT 2001 SIGMOIDOSCOPY 2001 VIRTUAL COLONOSCOPY 2001 PNEUMOCOCCAL VACCINES (50+ years) (2 of 2 - PPSV23) 01/07/2021 01/08/2020 INFLUENZA VACCINE (#1) 2024 , 01/08/2020, 02/15/2019, Additional history exists COVID-19 VACCINE ( - season) 2025 08/01/2020 Adult Td,Tdap Booster 09/21/2025 09/22/2015, 006 RSV VACCINE (1 - 1-dose 75+ series) 11/01/2031 ZOSTER VACCINES Completed 03/10/2020, 05/2019, 08/11/2015 HEPATITIS A VACCINES Aged Out No long er eligible based on patient's age to complete this topic HIB VACCINES Aged Out No longer eligi ble based on patient's age to complete this topic MENINGOCOCCAL VACCINES (ACWY) Aged Out No longer eligible based on patient's age to complete this topic MENINGOCOCCAL VACCINES (B) Aged Out N o longer eligible based on patient's age to complete this topic Medical Devices Not on file Insurance [facility] MEDICARE SUPPLEMENT MEDICARE PART A & B [facility] MEDICARE SUPPLEMENT MEDICARE PART A & B [facility] SUPPLE[facility] MEDICARE PART A & B [facility] MEDICARE SUPPLEMENT MEDICARE PART A & B [facility] MEDICARE SUPPLEMENT MEDICARE PART A & B [employer] [facility] EXTENSION MEDICARE SUPPLEMENT MEDICARE PART A & B Care Teams Operations/Dispatch Relationship Specialty Start Date End Date Ching Perez MD [address] [facility] [place] [address] PCP - General Internal Medicine 01/12/23 Additional Source Comments The information contained in this document represents components of the legal health record. It is not the complete legal health record.[facility]
--- OUTSIDE RECORDS SUMMARY | 2025-01-22 15:51 | XMS_ITS | Patient Health Record ---
Author Organization [facility] Address [address] [place] [address] Care Team Providers Care Admitting Manager Name Role Phone Ching Perez MD Primary Care Provider Curt Juarez Jr Unavailable Allergies Allergen (clinical drug ingredient) Drug/Non Drug Allergy documented on EMR Reaction Allergy Type Onset Date Status acetaminophen / oxycodone Percocet Unknown Drug Allergy Active amoxicillin Amoxicillin Unknown Drug Allergy Act gina Reason For Referral No Information Medications Medication SIG (Take, Route, Frequency, Duration) Notes Start Date End Date Status [place] 3 Active MiraLax (colon prep) 8.3 ounce ((238) grams mixed with Gatorade or Crystal Light orally begin at 5:00 p.m. the day before the procedure for 1 day 09/04/2020 Active Omeprazole 20 MG TAKE 1 CAPSULE BY [facility] EVERY MORNING 30 MINUTES BEFORE MORNING [...] Problem Status W/U Status Risk Notes Problem 517694139 Colon cancer screening (Z12.11) Active confirmed Problem 42903406 Encounter for other preprocedural examination (Z01.818) Active confirmed Problem 075124259 Gastroesophageal reflux disease without esophagitis (K21.9) Active confirmed Problem 456774986 Screening for colon cancer (Z12.11) Active confirmed Problem Gastroesophageal reflux disease (959117508) GERD (gastroesophageal reflux disease) (K21.9) Active confirmed Plan Of Treatment Future Test Test Name Order Date Colonoscopy 05/26/2017 UPPER GI ENDOSCOPY 09/04/2020 COLONOSCOPY 09/04/2020 Insurance Providers Payer Name Payer Address Payer Phone Subscriber Number Group Number Insured Name Patient Relationship to Insured Coverage Start Date Coverage End Date [facility] [address] [place] [address] [id number] LAUREN MARK Self - patient is the insured Medical (General) History Medical History History ICD Code osteoarthritis elevated cholesterol gastroesophageal reflux disease colonoscopy 09/18/17, tubular adenomas x3 , three-year followup 09/26 Surgical History Surgery Date(Month/Year) left knee arthroscopy, subsequent TKR tonsillectomy right knee total knee replacement
--- OUTSIDE RECORDS SUMMARY | 2025-01-22 15:51 | XMS_ITS | Encounter Summary ---
Author Organization [facility] [place], Address [address] [place] [address] Phone Care Team Providers Care Solutions Consultant Name Role Phone Ching Perez MD Primary Care Provider [phone] Encounter Details Date Type Department Care Team (Late st Contact Info) Description 07/30/2024 Documentation Only [facility] [address] [place] [address] Ariadna Lobo [address] [place] [phone] Social History Tobacco Use Types Packs/Day Years [...] Visit [facility] [address] [place] [address] Kwadwo Jason MD [address] [place] [address] [place] [phone] documented as of this encounter Visit Diagnoses Not on filedocumented in this encounter Care Teams Solutions Consultant Relationship Specialty Start Date End Date Ching Perez MD [address] [place] [address] PCP - General Internal Medicine 01/06/24 documented as of this encounter
== END 2025-01-22 16:20 | disposition home or self-care (01) ==
LOC: HO.HMCC 11:37
PROVIDERS: PCP Internal Medicine; Visit Provider Internal Medicine
DX: K64.4 Residual hemorrhoidal skin tags (principal); I10 Essential (primary) hypertension

== ENCOUNTER → 2025-01-22 11:36 | Outpatient (BNVA) | payer MEDICARE, OTHER, SELFPAY | PROVIDERS: PCP Internal Medicine; Visit Provider Internal Medicine | DX: K64.4 Residual hemorrhoidal skin tags (principal); I10 Essential (primary) hypertension | CPT/HCPCS: 96127; 99212 ==

== ENCOUNTER 2025-03-08 09:37 | Outpatient (REF) | payer MEDICARE, OTHER, SELFPAY ==
--- OUTSIDE RECORDS SUMMARY | 2024-05-23 09:30 | XMS_ITS ---
Author Organization [facility] Address [address] [address] Care Team Providers Care Crime Scene Evidence Technician Name Role Phone Ching Perez Primary Care Provider UnavailBRIGITTE Dia Unavailable [phone] REASON FOR VISIT surgical planning Encounters Encounter Location Date Provider Diagnosis [facility] [address] [address] 05/23/2024 BRIGITTE CASTANEDA Plan Of Treatment No Information Progress Notes * JASFinaanjuJitendraOB:1955 (69 yo M)Acc No.[id number]:05/23/2024 Progress Note Patient: Lisseth GARVEY Provider: Jovita Andres DPM :1955 A ge:68 Y S ex:Male Date:05/23/2024 Phone: Address:[address] [id number] Pcp:Ching Perez Subjective: * Chief Complaints: * 1 . Surgical planning. * Medical History: Objective: * Vitals: Assessment: Plan: * Treatment: * Billing Information: * Visit Code: * Procedure Codes: * Electronic signature of BLAINE CASTANEDA D.P.M. on 03/08/2025 at 10:44 AM EDT Sign off status: Pending * Provider: Jovita Andres DPM Date: 0 05/23/2024 Generated for Adal keith/Alvarez/eTransmitting on: 1 10:44 AM EDT
--- OUTSIDE RECORDS SUMMARY | 2024-05-30 02:00 | XMS_ITS ---
Author Organization [facility] Address [address] [address] Care Team Providers Care Federal Air Marshal Name Role Phone Ching Perez Primary Care Provider BRIGITTE Bowles Unavailable [phone] REASON FOR VISIT Surgery starts at 730am... Left Hallux valgus , left metatarsus adductus and left 2nd to 5th hammertoes Encounters Encounter Location Date Provider Diagnosis [facility] [address] [address] 05/30/2024 BRIGITTE CASTANEDA Plan Of Treatment No Information Progress Notes * JAS ElijahroDOB:1955 (69 yo M)Acc No.[id number]:05/30/2024 Patient: Lisseth GARVEY Provider: Jovita Andres DPM :1955 A ge:68 Y S ex:Male Date:05/30/2024 Phone: Address:[address], [place]-[address] Pcp:Ching Perez * Billing Information: * Visit Code: * Procedure Codes: * Electronic signature of BLAINE CASTANEDA D.P.M. on 03/08/2025 at 10:45 AM EDT Sign off status: Pending * Provider: Jovita Andres DPDaja Date: 0 05/30/2024 Generated for Adal keith/Alvarez/eTransmitting on: 1 10:45 AM EDT
--- OUTSIDE RECORDS SUMMARY | 2024-06-06 09:30 | XMS_ITS ---
Author Organization [facility] Address [address] [address] Care Team Providers Care Sleeve Fixer Name Role Phone Ching Perez Primary Care Provider UnavailBRIGITTE Dia Unavailable [phone] REASON FOR VISIT 1 wk post-op Encounters Encounter Location Date Provider Diagnosis [facility] [address] [address] 06/06/2024 BRIGITTE CASTANEDA Plan Of Treatment No Information Progress Notes * Felipa STOVEROB:1955 (69 yo M)Acc No.[id number]:06/06/2024 post-op Patient: Lisseth GARVEY Provider: Jovita Andres DPM :1955 A ge:68 Y S ex:Male Date:06/06/2024 Phone: Address:[address] [id number] Pcp:Ching Perez Subjective: * Chief Complaints: Objective: * Vitals: Assessment: Plan: * Treatment: * Billing Information: * Electronic signature of BLAINE CASTANEDA D.P.M. on 03/08/2025 at 10:45 AM EDT Sign off status: Pending * Provider: Jovita Andres DPM Date: 0 06/06/2024 Generated for Adal keith/Alvarez/eTceciliasmitting on: 10:45 AM EDT
--- OUTSIDE RECORDS SUMMARY | 2024-06-13 09:30 | XMS_ITS ---
Author Organization [facility] Address [address] [address] Care Team Providers Care Worm Picker Name Role Phone Ching Perez Primary Care Provider UnavailBRIGITTE Dia Unavailable [phone] REASON FOR VISIT 2 wk post-op Encounters Encounter Location Date Provider Diagnosis [facility] [address] [address] 06/13/2024 BRIGITTE CASTANEDA Plan Of Treatment No Information Progress Notes * Felipa STOVEROB:1955 (69 yo M)Acc No.[id number]:06/13/2024 post-op Patient: Lisseth GARVEY Provider: Jovita Andres DPM :1955 A ge:68 Y S ex:Male Date:06/13/2024 Phone: Address:[address] [id number] Pcp:Ching Perez Subjective: * Chief Complaints: Objective: * Vitals: Assessment: Plan: * Treatment: * Billing Information: * Electronic signature of BLAINE CASTANEDA D.P.M. on 03/08/2025 at 10:45 AM EDT Sign off status: Pending * Provider: Jovita Andres DPM Date: 0 06/13/2024 Generated for Adal keith/Alvarez/eTceciliasmitting on: 1 10:45 AM EDT
--- OUTSIDE RECORDS SUMMARY | 2024-07-11 09:30 | XMS_ITS ---
Author Organization [facility] Address [address] [address] Care Team Providers Care Merchandise Examiner Name Role Phone Ching Perez Primary Care Provider UnavailBRIGITTE Dia Unavailable [phone] REASON FOR VISIT 6 wk post-op Encounters Encounter Location Date Provider Diagnosis [facility] [address] [address] 07/11/2024 BRIGITTE CASTANEDA Plan Of Treatment No Information Progress Notes * Felipa STOVEROB:1955 (69 yo M)Acc No.[id number]:07/11/2024 post-op Patient: Lisseth GARVEY Provider: Jovita Andres DPM :1955 A ge:68 Y S ex:Male Date:07/11/2024 Phone: Address:[address] [id number] Pcp:Ching Perez Subjective: * Chief Complaints: Objective: * Vitals: Assessment: Plan: * Treatment: * Billing Information: * Electronic signature of BLAINE CASTANEDA D.P.M. on 03/08/2025 at 10:44 AM EDT Sign off status: Pending * Provider: Jovita Andres DPM Date: 0 07/11/2024 Generated for Adal keith/Alvarez/eTceciliasmshine on: 1 10:44 AM EDT
--- OUTSIDE RECORDS SUMMARY | 2025-03-08 10:45 | XMS_ITS | Clinical Summary ---
Author Organization [facility] Address [address] [place] [address] Phone Care Team Providers Care Seasonal Package Handler Name Role Phone Ching Perez MD Primary Care Provider [phone] Social History Tobacco Use Types Packs/Day Years [...] topic Medical Devices Not on file Insurance [facility] MEDIC[facility] SUPPLEMENT MEDICARE PART A & B [facility] MEDICARE SUPPLEMENT MEDICARE PART A & B [facility] MEDIC[facility] SUPPLEMENT MEDICARE PART A & B [facility] MEDICARE SUPPLEMENT MEDICARE PART A & B [facility] MEDICARE SUPPLEMENT MEDICARE PART A & B [facility] EXTENSION MEDICARE SUPPLEMENT MEDICARE PART A & B Care Teams Seasonal Package Handler Relationship Specialty Start Date End Date Ching Perez MD [address] [place] [address] PCP - General Internal Medicine 01/12/23 Additional Source Comments The information contained in this document represents components of the legal health record. It is not the complete legal health record.[facility]
--- OUTSIDE RECORDS SUMMARY | 2025-03-08 10:45 | XMS_ITS | Patient Health Record ---
Author Organization [facility] Address [address] [address] Care Team Providers Care Youth Worker Name Role Phone Natalya Perezanna Primary Care Provider BRIGITTE Bowles Unavailable [phone] Allergies Allergen (clinical drug ingredient) Drug/Non Drug Allergy documented on EMR Reaction Allergy Type Onset Date Status amoxicillin Amoxicillin nausea and vomiting Drug Allergy Active oxycodone Oxycodone nausea and vomiting Drug Allergy Active Reason For Referral No Information Medications Medication SIG (Take, Route, Frequency, Duration) Notes Start Date End Date Status [place] 3 1000 MG 1 capsule Orally Thr ee times a day Active Atenolol 25 MG 1 tablet Orally Once a day Active Vitamin D3 50 MCG (1999 UT) 1 capsule Orally Once a day Active Magnesium Citrate 100 MG as directed Orally Active Problems Problem Type SNOMED Code ICD Code Onset Dates Problem Status W/U Status Risk Notes Problem 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 Problem Acquired hallux valgus (08648058) Acquired hallux valgus of left foot (M20.12) Active confirmed Problem Osteoarthritis (440606203) 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 Problem Acquired hallux valgus (53212718) Acquired hallux valgus of right foot (M20.11) Active confirmed Encounters Encounter Location Date Provider Diagnosis [facility] [address] [address] 03/12/2024 BRIGITTE CASTANEDA Plan Of Treatment No Information Insurance Providers Payer Name Payer Address Payer Phone Subscriber Number Group Number Insured Name Patient Relationship to Insured Coverage Start Date Coverage End Date Medicare of [place] [address] [id number] [phone] [id number] Lisseth Stover Self - patient is the insured [facility] [address] [place] [address] [id number] Lisseth Stover Self - patient is the [...]
--- OUTSIDE RECORDS SUMMARY | 2025-03-08 10:46 | XMS_ITS | Patient Health Record ---
Author Organization [facility] Address [address] [place] [address] Care Team Providers Care Mobile Tester Name Role Phone Ching Perez MD [...] Duration) Notes Start Date End Date Status [place] 3 Active MiraLax (colon prep) 8.3 ounce ((238) grams mixed with Gatorade or Crystal Light orally begin at 5:00 p.m. the day before the procedure; Duration: 1 day 09/04/2020 Active Omeprazole 20 MG TAKE 1 CAPSULE BY [facility] EVERY MORNING 30 MINUTES BEFORE MORNING MEAL.; Duration: 30 Active Vitamin D3 Active Immunizations Vaccine [...] Problem Status W/U Status Risk Notes Problem Colon cancer screening (692759509) Colon cancer screening (Z12.11) Active confirmed Problem Pre-procedure evaluation check (899123284) Encounter for other preprocedural examination (Z01.818) Active confirmed Problem Gastroesophageal reflux disease without esophagitis (831812917) Gastroesophageal reflux disease without esophagitis (K21.9) Active confirmed Problem Screening for colon cancer (027282566) Screening for colon cancer (Z12.11) Active confirmed Problem Gastroesophageal reflux disease (992983529) GERD (gastroesophageal reflux disease) (K21.9) Active confirmed Plan Of Treatment Future Test Test Name Order Date Colonoscopy 05/26/2017 UPPER GI ENDOSCOPY 09/04/2020 COLONOSCOPY 09/04/2020 Next Appt Details Provider Name:Curt bustos , 07/29/2025 09:00:00 AM, [address] [place] [address], [address], [place], [address], Insurance Providers Payer Name Payer Address Payer Phone Subscriber Number Group Number Insured Name Patient Relationship to Insured Coverage Start Date Coverage End Date [employer] [address] [place] [address] [id number] LAUREN MARK Self - patient is the insured Medical (General) History Medical History History ICD Code osteoarthritis elevated cholesterol gastroesophageal reflux disease colonoscopy 09/18/17, tubular adenomas x3 , three-year followup 09/26 Surgical History Surgery Date(Month/Year) left knee arthroscopy, subsequent TKR tonsillectomy right knee total knee replacement
[2025-03-08 13:17] LABS: MANUAL DIFF FLAG NO
[2025-03-08 13:24] LABS: Hematocrit 42.6 % (42.0-52.0); Hemoglobin 13.9 g/dl (14.0-18.0); Imm Gran Abs Auto 0.02 X10*3/uL (0.00-0.03); Imm Gran Pct Auto 0.4 % (0.0-0.4); Lymphocytes Absolute Auto 1.7 X10*3/uL (1.2-4.9); Mean Corpuscular HGB Conc 32.6 g/dl (31.0-36.0); Mean Corpuscular Hemoglobin 28.5 pg (27.0-33.0); Mean Corpuscular Volume 87.3 fL (80.0-98.0); NRBC Abs Auto 0.000 X10*3/uL (0.0-0.012); NRBC Pct Auto 0.0 /100WBC (0.0-0.2); Platelet Count 242 X10*3/uL (160-400); Red Blood Count 4.88 X10*6/uL (4.60-5.80); White Blood Count 5.4 X10*3/uL (4.8-10.8)
[2025-03-08 13:26] LABS: Appearance Urine Clear; Glucose Urine UA Negative (Negative); PH 5.5 (5.0-9.0); Specific Gravity - Urine 1.015 (1.005-1.025)
[2025-03-08 13:36] LABS: Alanine Aminotransferase 26 U/L (0-40); Albumin Level 4.6 g/dL (3.5-5.0); Alkaline Phosphatase 53 U/L (39-117); Anion Gap 12 (12-20); Aspartate Amino Transferase 31 U/L (5-37); Blood Urea Nitrogen 35 mg/dL (9-16); Calcium 9.3 mg/dL (8.4-10.2); Carbon Dioxide 22 mmol/L (22-29); Chloride 109 mmol/L (96-108); Cholesterol 199 mg/dL (<200); Estimated Glomerular Filt Rate 39; HDL Cholesterol 50 mg/dL (>40); Potassium 4.8 mmol/L (3.3-5.1); Sodium 138 mmol/L (135-145); Total Protein 7.0 g/dL (6.5-8.0); Triglycerides 97 mg/dL (<150)
[2025-03-08 14:10] LABS: PSA,Total (Free>4and<10) 0.34 ng/mL (0.00-4.00)
== END 2025-03-08 09:38 | disposition home or self-care (01) ==
LOC: HO.HMGCLDS 09:37
PROVIDERS: PCP Internal Medicine; Visit Provider Internal Medicine
DX: Z12.5 Encounter for screening for malignant neoplasm of prostate (principal); I12.9 Hypertensive chronic kidney disease with stage 1 through stage 4 chronic kidney disease, or unspecified chronic kidney disease; N18.30 Chronic kidney disease, stage 3 unspecified; E78.5 Hyperlipidemia, unspecified
CPT/HCPCS: 36415; 80053; 80061; 81001; 84153; 85025

== ENCOUNTER 2025-03-14 07:54 | Outpatient (AMB) | payer MEDICARE, OTHER, SELFPAY ==
--- OUTSIDE RECORDS SUMMARY | 2024-05-23 08:30 | XMS_ITS ---
Author Organization [facility] Address [address] [address] Care Team Providers Care Product Marketing Director Name Role Phone Ching Perez Primary Care Provider UnavailBRIGITTE Dia Unavailable [phone] REASON FOR VISIT surgical planning Encounters Encounter Location Date Provider Diagnosis [facility] [address] [address] 05/23/2024 BRIGITTE CASTANEDA Plan Of Treatment No Information Progress Notes * JASFinaanjuJitendraOB:1955 (69 yo M)Acc No.[id number]:05/23/2024 Progress Note Patient: Lisseth GARVEY Provider: Jovita Andres DPM :1955 A ge:68 Y S ex:Male Date:05/23/2024 Phone: Address:[address] [id number] Pcp:Chnig Perez Subjective: * Chief Complaints: * 1 . Surgical planning. * Medical History: Objective: * Vitals: Assessment: Plan: * Treatment: * Billing Information: * Visit Code: * Procedure Codes: * Electronic signature of BLAINE CASTANEDA D.P.M. on 03/14/2025 at 07:59 AM EST Sign off status: Pending * Provider: Jovita Andres DPDaja Date: 0 05/23/2024 Generated for Adal keith/Alvarez/Cary on: 1 05/14/2024 07:59 AM EST
--- OUTSIDE RECORDS SUMMARY | 2024-05-30 01:00 | XMS_ITS ---
Author Organization [facility] Address [address] [address] Care Team Providers Care Wheelman Name Role Phone Ching Perez Primary Care Provider BRIGITTE Bowles Unavailable [phone] REASON FOR VISIT Surgery starts at 730am... Left Hallux valgus , left metatarsus adductus and left 2nd to 5th hammertoes Encounters Encounter Location Date Provider Diagnosis [facility] [address] [address] 05/30/2024 BRIGITTE CASTANEDA Plan Of Treatment No Information Progress Notes * JASFinaanjuroDOB:1955 (69 yo M)Acc No.[id number]:05/30/2024 Patient: Lisseth GARVEY Provider: Jovita Andres DPM :1955 A ge:68 Y S ex:Male Date:05/30/2024 Phone: Address:[address], [place]-[id number] Pcp:Ching Perez * Billing Information: * Visit Code: * Procedure Codes: * Electronic signature of BLAINE CASTANEDA D.P.M. on 03/14/2025 at 08:00 AM EST Sign off status: Pending * Provider: Jovita Andres DPDaja Date: 05/30/2024 Generated for Adal keith/Alvarez/eTransmitting on: 05/14/2024 08:00 AM EST
--- OUTSIDE RECORDS SUMMARY | 2024-06-06 08:30 | XMS_ITS ---
Author Organization [facility] Address [address] [address] Care Team Providers Care Janitorial Maintenance Worker Name Role Phone Ching Perez Primary Care Provider UnavailBRIGITTE Dia Unavailable [phone] REASON FOR VISIT 1 wk post-op Encounters Encounter Location Date Provider Diagnosis [facility] [address] [address] 06/06/2024 BRIGITTE CASTANEDA Plan Of Treatment No Information Progress Notes * Felipa STOVEROB:1955 (69 yo M)Acc No.[id number]:06/06/2024 post-op Patient: Lisseth GARVEY Provider: Jovita Andres DPM :1955 A ge:68 Y S ex:Male Date:06/06/2024 Phone: Address:[address] [id number] Pcp:Ching Perez Subjective: * Chief Complaints: Objective: * Vitals: Assessment: Plan: * Treatment: * Billing Information: * Electronic signature of BLAINE CASTANEDA D.P.M. on 03/14/2025 at 08:00 AM EST Sign off status: Pending * Provider: Jovita Andres DPM Date: 06/06/2024 Generated for Adal keith/Alvarez/Cary on: 05/14/2024 08:00 AM EST
--- OUTSIDE RECORDS SUMMARY | 2024-06-13 08:30 | XMS_ITS ---
Author Organization [facility] Address [address] [address] Care Team Providers Care Facility Maintenance Helper Name Role Phone Ching Perez Primary Care Provider UnavailBRIGITTE Dia Unavailable [phone] REASON FOR VISIT 2 wk post-op Encounters Encounter Location Date Provider Diagnosis [facility] [address] [address] 06/13/2024 BRIGITTE CASTANEDA Plan Of Treatment No Information Progress Notes * Felipa STOVEROB:1955 (69 yo M)Acc No.[id number]:06/13/2024 post-op Patient: Lisseth GARVEY Provider: Jovita Andres DPM :1955 A ge:68 Y S ex:Male Date:06/13/2024 Phone: Address:[address] [id number] Pcp:Ching Perez Subjective: * Chief Complaints: Objective: * Vitals: Assessment: Plan: * Treatment: * Billing Information: * Electronic signature of Rajni EDWARDSPLev on 03/14/2025 at 07:59 AM EST Sign off status: Pending * Provider: Jovita Andres DPM Date: 0 06/13/2024 Generated for Adal keith/Alvarez/Cary on: 05/14/2024 07:59 AM EST
--- OUTSIDE RECORDS SUMMARY | 2024-07-11 08:30 | XMS_ITS ---
Author Organization [facility] Address [address] [address] Care Team Providers Care Spd Tech Name Role Phone Ching Perez Primary Care Provider UnavailBRIGITTE Dia Unavailable [phone] REASON FOR VISIT 6 wk post-op Encounters Encounter Location Date Provider Diagnosis [facility] [address] [address] 07/11/2024 BRIGITTE CASTANEDA Plan Of Treatment No Information Progress Notes * Felipa STOVEROB:1955 (69 yo M)Acc No.[id number]:07/11/2024 post-op Patient: Lisseth GARVEY Provider: Joviat Andres DPM :1955 A ge:68 Y S ex:Male Date:07/11/2024 Phone: Address:[address] [id number] Pcp:Ching Perez Subjective: * Chief Complaints: Objective: * Vitals: Assessment: Plan: * Treatment: * Billing Information: * Electronic signature of BLAINE CASTANEDA D.P.M. on 03/14/2025 at 08:00 AM EST Sign off status: Pending * Provider: Jovita Andres DPM Date: 0 07/11/2024 Generated for Adal keith/Alvarez/Cary on: 05/14/2024 08:00 AM EST
--- OUTSIDE RECORDS SUMMARY | 2025-03-14 08:00 | XMS_ITS | Clinical Summary ---
Author Organization [facility] Address [address] [place] [address] Phone Care Team Providers Care Extrusion Operator Name Role Phone Ching Perez MD Primary Care Provider [phone] Social History Tobacco Use Types Packs/Day Years [...] VACCINES (50+ years) (2 of 2 - PCV20 or PCV21) 01/07/2021 01/08/2020 INFLUENZA VACCINE (#1) 2024 , 01/08/2020, 02/15/2019, Additional history exists COVID-19 VACCINE (2 - 2024- season) 2025 08/01/2020 Adult Td,Tdap Booster 09/21/2025 [...] topic Medical Devices Not on file Insurance [facility] MEDICARE SUPPLEMENT MEDICARE PART A & B [facility] MEDICARE SUPPLEMENT MEDICARE PART A & B [facility] MEDICARE SUPPLEMENT MEDICARE PART A & B [address] [facility] MEDICARE SUPPLEMENT [employer] [facility] MEDICARE SUPPLEMENT MEDICARE PART A & B [facility] MEDICARE SUPPLEMENT MEDICARE PART A & B [facility] MEDICARE SUPPLEMENT MEDICARE PART A & B Care Teams Extrusion Operator Relationship Specialty Start Date End Date Ching Perez MD [address] [place] [address] PCP - General Internal Medicine 01/12/23 Additional Source Comments The information contained in this document represents components of the legal health record. It is not the complete legal health record.[facility]
--- OUTSIDE RECORDS SUMMARY | 2025-03-14 08:00 | XMS_ITS | Patient Health Record ---
Author Organization [facility] Address [address] [place] [address] Care Team Providers Care Top Lifter Name Role Phone Ching Perez MD Primary Care Provider Curt Juarez Jr Unavailable Allergies Allergen (clinical drug ingredient) Drug/Non Drug Allergy documented on EMR Reaction Allergy Type Onset Date Status acetaminophen / oxycodone Percocet Unknown Drug Allergy Active amoxicillin Amoxicillin Unknown Drug Allergy Act gina Reason For Referral No Information Medications Medication SIG (Take, Route, Frequency, Duration) Notes Start Date End Date Status [place] 3 Active MiraLax (colon prep) 8.3 ounce ((238) grams mixed with Gatorade or Crystal Light orally begin at 5:00 p.m. the day before the procedure; Duration: 1 day 09/04/2020 Active Omeprazole 20 MG TAKE 1 CAPSULE BY [facility] EVERY MORNING 30 MINUTES BEFORE MORNING MEAL.; [...] Status Risk Notes Problem Colon cancer screening (696290039) Colon cancer screening (Z12.11) Active confirmed Problem Pre-procedure evaluation check (735242866) Encounter for other preprocedural examination (Z01.818) Active confirmed Problem Gastroesophageal reflux disease without esophagitis (584802432) Gastroesophageal reflux disease without esophagitis (K21.9) Active confirmed Problem Screening for colon cancer (208011614) Screening for colon cancer (Z12.11) Active confirmed Problem Gastroesophageal reflux disease (894659614) GERD (gastroesophageal reflux disease) (K21.9) Active confirmed Plan Of Treatment Future Test Test Name Order Date Colonoscopy 05/26/2017 UPPER GI ENDOSCOPY 09/04/2020 COLONOSCOPY 09/04/2020 Next Appt Details Provider Name:Curt bustos , 07/29/2025 09:00:00 AM, [address] [place] [address], [address], [place], [address], Insurance Providers Payer Name Payer Address Payer Phone Subscriber Number Group Number Insured Name Patient Relationship to Insured Coverage Start Date Coverage End Date [employer] [address] [place] [address] [id number] LAUREN MARK Self - patient is the insured Medical (General) History Medical History History ICD Code osteoarthritis elevated cholesterol gastroesophageal reflux disease colonoscopy 09/18/17, tubular adenomas x3 , three-year followup 09/26 Surgical History Surgery Date(Month/Year) left knee arthroscopy, subsequent TKR tonsillectomy right knee total knee replacement
--- OUTSIDE RECORDS SUMMARY | 2025-03-14 08:00 | XMS_ITS | Encounter Summary ---
Author Organization [facility] Address [address] [place] [address] Phone Care Team Providers Care Distribution Operation Supervisor Name Role Phone Ching Perez MD Primary Care Provider [phone] Encounter Details Date Type Department Care Team (Late st Contact Info) Description 07/30/2024 Documentation Only [facility] [address] [place] [phone] Ariadna Lobo [address] [place] [phone] Social History Tobacco Use Types Packs/Day Years Used Date Smoking Tobacco: Never Assessed Sex and Gender Information Value Date Recorded Sex Assigned at Not on file Legal Sex Male 8:45 AM EDT Gender Identity Not on file Sexual Orientation Not on file documented as of this encounter Plan of Treatment Upcoming Encounters Date Type Department Care Team (Late st Contact Info) Description 08/02/2025 2:30 PM EDT Imaging Encounter [facility] [address] [place] [phone] Chidi [place] MD [address] [place] [address] 08/27/2025 2:00 PM EDT Office Visit [facility] [address] [place] [phone] Kwadwo Jason MD [address] [facility] [address] [place] [address] documented as of this encounter Visit Diagnoses Not on filedocumented in this encounter Care Teams Distribution Operation Supervisor Relationship Specialty Start Date End Date Ching Perez MD [facility] [address] [place] [address] [address] [place] [address] PCP - General Internal Medicine 01/06/24 documented as of this encounter
--- OUTSIDE RECORDS SUMMARY | 2025-03-14 08:00 | XMS_ITS | Clinical Summary ---
Author Organization [facility] Address [address] [place] [address] Phone Care Team Providers Care Beauty Consultant Name Role Phone Ching Perez MD Primary Care Provider Allergies Active Allergy Reactions Criticality Noted Date Comments Amoxicillin 08/29/2024 Oxycodone-Acetaminophen 08/29/2024 Medications Cholecalciferol (EQL Vitamin D3) 50 MCG (1999) capsule Take by mouth Active lisinopril 10 MG tablet TAKE 1 TABLET BY MOUTH 1 TIME EACH DAY. 90 tablet 3 01/30/2025 Active amLODIPine (NORVASC) 10 MG tablet Take 10 mg by mouth 1 (one) time each day 12/26/2024 Active atenolol (TENORMIN) 25 MG tablet Take 25 mg by mouth 1 (one) time each day 12/26/2024 Active Active Problems Problem Noted Date Diagnosed Date Stage 3b chronic kidney disease 08/07/2024 Essential hypertension 08/07/2024 Hydronephrosis 02/15/2024 Nephrolithiasis 02/15/2024 Microscopic hematuria 02/15/2024 Parapelvic renal cyst 02/15/2024 Flank pain 02/15/2024 Encounters Date Type Department Care Team Description 02/12/2025 2:15 PM EDT Office Visit [facility] [address] [place] [address] Kwadwo Jason MD Stage 3b chronic kidney disease (HCC) (Primary Dx); Essential hypertension; Parapelvic renal cyst 01/30/2025 Refill [facility] [address] [place] [address] Kwadwo Jason MD from Last 3 Months Social History Tobacco Use Types Packs/Day Years [...] Encounter [facility] [address] [place] [phone] Chidi [place] MD [address] [place] [address] [place] [phone] 08/27/2025 2:00 PM EDT Office [facility] [address] [place] [phone] Kwadwo Jason MD [address] [place] [address] [place] [phone] Health Maintenance Due Date Last Done Comments Pneumococcal Vaccine: 50+ Ye ars (1 of 2 - PCV) 11/01/1975 Colorectal Cancer Screening: Annual FOBT 2005 Colorectal Cancer Screening: Colonoscopy 2005 Colorectal Cancer Screening: Sigmoidoscopy 2005 Influenza Vaccine (#1) 2025 Hepatitis B Vaccine Aged Out No longe r eligible based on patient's age to complete this topic Procedures Procedure Name Priority Date/Time Associated Diagnosis Comments PTH, INTACT Routine 02/08/2025 10:05 AM EDT MAGNESIUM Routine 02/08/2025 10:05 AM EDT URIC ACID Routine 02/08/2025 10:05 AM EDT VITAMIN D 25 HYDROXY Routine 02/08/2025 10:05 AM EDT URINE ALBUMIN / CREATININE RATIO Routine 02/08/2025 10:05 AM EDT RENAL FUNCTION PANEL Routine 02/08/2025 10:05 AM EDT from Last 3 Months Results * Urine Albumin / Creatinine Ratio (02/08/2025 10:05 AM EDT) Creatinine, Ur 34.6 Not Estab. mg/dL [facility] Albumin, Urine <3.0 Not Estab. ug/mL [facility] Albumin/Creatin ine Ratio <9 0 - 29 mg/g creat [facility] Comment: Normal: 0 - 29 Moderately increased: 30 - 300 Severely increased: >300 02/08/2025 10:0 5 AM EDT 02/08/2025 us Kwadwo Jason MD LAB URINE ORDERABLES Final Resul t [facility] [address] [place] [address] * Vitamin D 25 Hydroxy (02/08/2025 10:05 AM EDT) Vitamin D, 25-OH, Total 37.0 30.0 - 100.0 ng/mL [facility] Comment: Vitamin D deficiency has been defined by the Firth of [employer] and an Endocrine Society practice guideline as a level of serum 25-OH vitamin D less than 20 ng/mL (1,2). The Endocrine Society went on to further define vitamin D insufficiency as a level between 21 and 29 ng/mL (2). 1. IOM (Firth of Medicine). 2010. Dietary reference intakes for calcium and D. [place]: The National Academies Press. 2. Mike ZARATE, Erma MARIE, Clem CABRAL, et al. Evaluation, treatment, and prevention of vitamin D deficiency: an Endocrine Society clinical practice guideline. JCEM. 2010; 96(7):1911-30. 02/08/2025 10:0 5 AM EDT 02/08/2025 us Kwadwo Jason MD LAB BLOOD ORDERABLES Final Resul t Performing Organization Address [facility] Co de Phone Number [facility] [address] [place] [address] * Uric Acid (02/08/2025 10:05 AM EDT) Uric Acid 6.5 3.8 - 8.4 mg/dL [facility] Comment:Therapeutic target f or gout patients: <6.0 02/08/2025 10:0 5 AM EDT 02/08/2025 us Kwadwo Jason MD LAB BLOOD ORDERABLES Final Resul t Performing Organization Address [facility] Co de Phone Number [facility] [address] [place] [address] * PTH, Intact (02/08/2025 10:05 AM EDT) PTH 29 15 - 65 pg/mL [facility] 02/08/2025 10:0 5 AM EDT 02/08/2025 us Kwadwo Jason MD LAB BLOOD ORDERABLES Final Resul t Performing Organization Address [facility] de Phone Number [facility] [address] [place] [address] * Magnesium (02/08/2025 10:05 AM EDT) Magnesium 1.8 1.6 - 2.3 mg/dL [facility] 02/08/2025 10:0 5 AM EDT 02/08/2025 us Kwadwo Jason MD LAB BLOOD ORDERABLES Final Resul t [facility] [address] [place] [address] * (ABNORMAL) Renal Function Panel (02/08/2025 10:05 AM EDT) Glucose 85 70 - 99 mg/dL [facility] BUN 32(H) 8 - 27 mg/dL [facility] Creatinine 2.10(H) 0.76 - 1.27 mg/dL [facility] eGFR CKD-EPI CR 2020 34(L) >59 mL/min/1.7 3 [facility] BUN/Creatinine Ratio 15 10 - 24 [facility] Sodium 134 134 - 144 mmol/L [facility] Potassium 5.3(H) 3.5 - 5.2 mmol/L [facility] Chloride 100 96 - 106 mmol/L [facility] Bicarbonate (CO2) 20 20 - 29 mmol/L [facility] Calcium 9.4 8.6 - 10.2 mg/dL [facility] Albumin 4.4 3.9 - 4.9 g/dL [facility] Phosphorus 4.1 2.8 - 4.1 mg/dL [facility] 02/08/2025 10:0 5 AM EDT 02/08/2025 us Kwadwo Jason MD LAB BLOOD ORDERABLES Final Resul t [facility] [address] [place] [address] from Last 3 Months Insurance Medicare [facility] Care Teams Beauty Consultant Relationship Specialty Start Date End Date Ching Perez MD [facility] [address] [place] [address] [address] [place] [address] PCP - General Internal Medicine 01/06/24
--- OUTSIDE RECORDS SUMMARY | 2025-03-14 08:00 | XMS_ITS | Patient Health Record ---
Author Organization [facility] Address [address] [address] Care Team Providers Care Legal Office Administrator Name Role Phone Ching Perez Primary Care Provider BRIGITTE Bowles Unavailable [phone] Allergies Allergen (clinical drug ingredient) Drug/Non Drug Allergy documented on EMR Reaction Allergy Type Onset Date Status amoxicillin Amoxicillin nausea and vomiting Drug Allergy Active oxycodone Oxycodone nausea and vomiting Drug Allergy Active Reason For Referral No Information Medications Medication SIG (Take, Route, Frequency, Duration) Notes Start Date End Date Status [place] 3 1000 MG 1 capsule Orally Thr ee times a day Active Atenolol 25 MG 1 tablet Orally Once a day Active Vitamin D3 50 MCG (1999 [place]) 1 capsule Orally Once a day Active Magnesium Citrate 100 MG as directed Orally Active Problems Problem Type SNOMED Code ICD Code Onset Dates Problem Status W/U Status Risk Notes Problem Metatarsus adductus (06066765) 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 Problem Acquired hallux valgus (53688280) Acquired hallux valgus of left foot (M20.12) Active confirmed Problem Osteoarthritis (900567422) 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 Problem Acquired hallux valgus (89145747) Acquired hallux valgus of right foot (M20.11) Active confirmed Plan Of Treatment No Information Insurance Providers Payer Name Payer Address Payer Phone Subscriber Number Group Number Insured Name Patient Relationship to Insured Coverage Start Date Coverage End Date Medicare of [place] [address] [place] [phone] [id number] Lisseth Stover Self - patient is the insured [facility] [address] [place] [address] [phone] [id number] Lisseth Stover Self - patient is the [...] History Surgery Date(Month/Year) colonoscopy bilateral knee replacements 2017 tonsillectomy thumb surgery
--- OUTSIDE RECORDS SUMMARY | 2025-03-14 08:00 | XMS_ITS | Encounter Summary ---
Author Organization [facility] Address [address] [place] [address] Phone Care Team Providers Care Statement Distribution Clerk Name Role Phone Ching Perez MD Primary Care Provider [phone] Encounter Details Date Type Department Care Team (Late st Contact Info) Description 01/11/2024 Documentation Only [facility] [address] [place] [phone] Amber Stover [address] [place] [phone] Social History Tobacco Use Types Packs/Day Years [...] Encounter [facility] [address] [place] [address] Chidi [place] MD [address] [facility] [place] [address] 08/27/2025 2:00 PM EDT Office Visit [facility] [address] [place] [phone] Kwadwo Jason MD [address] [facility] [place] [address] documented as of this encounter Visit Diagnoses Not on filedocumented in this encounter Care Teams Statement Distribution Clerk Relationship Specialty Start Date End Date Ching Perez MD [facility] [address] [place] [address] [address] [place] [address] PCP - General Internal Medicine 01/06/24 documented as of this encounter
--- OUTSIDE RECORDS SUMMARY | 2025-03-14 08:00 | XMS_ITS | Encounter Summary ---
Author Organization [facility] Address [address] [place] [address] Phone Care Team Providers Care Dairy Farmworker Name Role Phone Ching Perez MD Primary Care Provider [phone] Encounter Details Date Type Department Care Team (Late st Contact Info) Description 07/30/2024 Documentation Only [facility] [address] [place] [phone] Ariadna Lobo [address] [place] [phone] Social History Tobacco Use Types Packs/Day Years [...] Encounter [facility] [address] [place] [address] Chidi [place] MD [address] [facility] [place] [address] 08/27/2025 2:00 PM EDT Office Visit [facility] [address] [place] [phone] Kwadwo Jason MD [address] [facility] [place] [address] documented as of this encounter Visit Diagnoses Not on filedocumented in this encounter Care Teams Dairy Farmworker Relationship Specialty Start Date End Date Ching Perez MD [facility] [address] [place] [address] [address] [place] [address] PCP - General Internal Medicine 01/06/24 documented as of this encounter
--- OUTSIDE RECORDS SUMMARY | 2025-03-14 08:00 | XMS_ITS | Encounter Summary ---
Author Organization [facility] [place], Address [address] [place] [address] Phone Care Team Providers Care Plug Cutting Machine Operator Name Role Phone Ching Perez MD Primary Care Provider [phone] Encounter Details Date Type Department Care Team (Late st Contact Info) Description 01/12/2024 Documentation Only [facility] [address] [place] [phone] Amber Stover [address] [place] [phone] Social History Tobacco Use Types Packs/Day Years [...] Encounter [facility] [address] [place] [address] Chidi [place] MD [address] [facility] [place] [address] 08/27/2025 2:00 PM EDT Office Visit [facility] [address] [place] [address] Kwadwo Jason MD [address] [facility] [place] [address] documented as of this encounter Visit Diagnoses Not on filedocumented in this encounter Care Teams Plug Cutting Machine Operator Relationship Specialty Start Date End Date Ching Perez MD [facility] [address] [place] [address] [address] [place] [address] PCP - General Internal Medicine 01/06/24 documented as of this encounter
[2025-03-14 08:15] VITALS: BP 108/66; PULSE 50; RESP 16; TEMP 36.6; O2SAT 96; BMI 31.8
--- NOTE | 2025-03-14 08:15 | A.OFFPC_ITS ---
Vital Signs 03/14/25 08:15 Height 5 ft 5 in Weight 191 lb BMI 31.8 BP 108/66 Blood Pressure Location Lt brachial Position Sitting Respiration 16 Pulse 50 Pulse Source Pulse Oximeter Temp 97.8 F Temp Source Oral Pulse Oximetry (%) 96 Oxygen Delivery Method Room Air Intake Visit Reasons: Annual PE Intake Note: Pt is here today for PE. Allergies amoxicillin Allergy (Unknown, Verified 03/14/25 08:17) Nausea and Vomiting oxycodone (Percocet) Allergy (Unknown, Verified 03/14/25 08:17) nausea and vomiting Medication List - Last Reconciled 03/14/25 by Ching Perez MD amlodipine 10 mg PO DAILY atenolol 25 mg PO DAILY cholecalciferol (vitamin D3) 50 mcg PO BEDTIME lisinopril 10 mg PO DAILY magnesium citrate 100 mg PO DAILY omega-3 fatty acids 1,000 mg PO DAILY Tobacco use date assessed: 03/14/25 Fall risk assessment: No Falls in past year Last assessed Fall Risk: 03/14/25 Dental Screening Dental Screen Date: 07/20/24 HPI Annual PE HPI Details Patient presents for physical PFSH Medical History (Updated 03/14/25 @ 08:48 by Ching Perez MD) Renal cyst Left renal mass COVID-19 vaccine series completed Tendinitis of elbow Hyperlipidemia Spondylosis of lumbosacral region Benign paroxysmal positional vertigo GERD (gastroesophageal reflux disease) Surgical History H/O colonoscopy History of bilateral knee replacement History of tonsillectomy History of thumb surgery H/O left knee surgery Family History Father Healthy male adult Mother HTN (hypertension) Breast cancer Skin cancer Thyroid disorder Daughter Allergies Son No problems noted. Son No problems noted. Sister No problems noted. Sister No problems noted. Brother No problems noted. Brother No problems noted. 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: No Do you have trouble paying your heating and electricity bill?: No Do you have trouble taking care of your child, family member or friend?: No Do you have trouble with day-to-day activities such as bathing, preparing meals, shopping, managing finances, etc.?: No Are you currently unemployed and looking for a job?: No Are you interested in more education?: No Please select the resources that you would like help with: None Currently or been in a relationship where the following occur: No concerns reported THRIVE Score: 0 ZINA-7 AMB Questionnaire ZINA-7 Date ZINA - 7 assessed: 07/20/24 Source: Developed by Drs. Hong Weiss, Marianne Herrera, Surinder Trujillo and colleagues, with an educational leslie from [employer]. Review of Systems Const All systems reviewed & are unremarkable except as noted in HPI and below ENT Reports no additional complaints Card Reports no additional complaints Resp Reports no additional complaints GI Reports no additional complaints Reports no additional complaints Physical exam (Primary Care) Vital Signs: Last Vital Signs Temp 97.8 F 03/14/25 08:15 Pulse 50 03/14/25 08:15 Resp 16 03/14/25 08:15 BP 108/66 03/14/25 08:15 Pulse Ox 96 03/14/25 08:15 Oxygen Delivery Method Room Air 03/14/25 08:15 BMI result Body Mass Index 31.8 Tobacco/Smoking Status: Tobacco use Status Tobacco use date assessed 03/14/25 03/14/25 08:20 Patient Tobacco Use Status Former Tobacco user 03/14/25 08:15 Tobacco use type Cigarette 03/14/25 08:15 e-Cigarette/Vaping Use Never Used 03/14/25 08:15 Thrive Assessment: Date of Thrive Assessment Date Thrive assessed 07/20/24 03/14/25 08:15 Currently or been in a relationship where the following occur: No concerns reported Const General: no acute distress HENMT Head: Yes normal to inspection Ears: TM's normal bilaterally Face and sinus: Yes normal facial exam Mouth: Normal oral and palatal mucosa present Eyes General: appearance normal, both eyes and all related structures Neck Neck: Yes no lymphadenopathy and Yes supple Resp Effort & Inspection: normal respiratory effort Auscultation: clear to auscultation bilaterally Cardio Rhythm: regular rhythm Heart sounds: S1 normal heart sound present and S2 normal heart sound present GI Inspection: Yes normal to inspection Palpation (GI): Soft to palpation Percussion: Yes normal to percussion Auscultation: normal bowel sounds Coding Level of Care Code Est Pt Prev Care >65y(85126) Diagnoses CKD (chronic kidney disease) stage 3, GFR 30-59 ml/min N18.30 Hypertension, essential I10 Hyperlipidemia E78.5 Left renal mass N28.89 Annual physical exam Z00.00 Assessment & Plan Assessment & Plan (1) CKD (chronic kidney disease) stage 3, GFR 30-59 ml/min: Comment: Secondary to left hydronephrosis, declining of the left kidney function, referred to nephrology 12/2023 Code(s): N18.30 - Chronic kidney disease, stage 3 unspecified Category: Medical Plan: Avoid nephrotoxins monitor renal function follow-up with teacher asst every 6 months (2) Hypertension, essential: Code(s): I10 - Essential (primary) hypertension Category: Medical Plan: Continue current medications (3) Hyperlipidemia: Code(s): E78.5 - Hyperlipidemia, unspecified Category: Medical Plan: Low-cholesterol diet regular physical activity discussed with the patient. he will have repeat lipid profile in 6 months (4) Left renal mass: Comment: CT PVU, left cystic structure 2.6x3.7x2.3 cm with a mass effect on the left renal pelvis and mild hydronephrosis, f/u with PVU Q 6 MONTHS Code(s): N28.89 - Other specified disorders of kidney and ureter Category: Medical Plan: Follow-up with urology (5) Annual physical exam: Code(s): Z00.00 - Encounter for general adult medical examination without abnormal findings Category: Medical Plan: Well-balanced diet regular physical activity discussed with the patient he is up-to-date with colonoscopy. Patient will return in 1 year Orders: Orders Lipid Panel 6 Months E78.5 - Hyperlipidemia, unspecified Complete Blood Count Auto Diff 1 Year E78.5 - Hyperlipidemia, unspecified, I10 - Essential (primary) hypertension, N18.30 - Chronic kidney disease, stage 3 unspecified Lipid Panel 1 Year E78.5 - Hyperlipidemia, unspecified, I10 - Essential ( primary) hypertension, N18.30 - Chronic kidney disease, stage [address] Panel Fast 1 Year E78.5 - Hyperlipidemia, unspecified, I10 - Essential (primary) hypertension, N18.30 - Chronic kidney disease, stage 3 unspecified UA w Microscopic 1 Year E78.5 - Hyperlipidemia, unspecified, I10 - Essential (primary) hypertension, N18.30 - Chronic kidney disease, stage 3 unspecified
== END 2025-03-14 08:55 | disposition home or self-care (01) ==
LOC: HO.HMCC 07:55
PROVIDERS: PCP Internal Medicine; Visit Provider Internal Medicine
DX: Z00.00 Encounter for general adult medical examination without abnormal findings (principal); I12.9 Hypertensive chronic kidney disease with stage 1 through stage 4 chronic kidney disease, or unspecified chronic kidney disease; N18.30 Chronic kidney disease, stage 3 unspecified; E78.5 Hyperlipidemia, unspecified; N28.89 Other specified disorders of kidney and ureter

== ENCOUNTER → 2025-03-14 07:54 | Outpatient (BNVA) | payer MEDICARE, OTHER, SELFPAY | PROVIDERS: PCP Internal Medicine; Visit Provider Internal Medicine | DX: Z00.00 Encounter for general adult medical examination without abnormal findings (principal); N18.30 Chronic kidney disease, stage 3 unspecified; I10 Essential (primary) hypertension; E78.5 Hyperlipidemia, unspecified; N28.89 Other specified disorders of kidney and ureter | CPT/HCPCS: 99397 ==